=== PATIENT | male | born 1950 | race Caucasian/White ===

== ENCOUNTER → 2017-04-15 | Outpatient (CLI) | payer MEDICARE ==
[~2017-04-15] MED LIST: ALLOPURINOL 10100 M1 PO; ALLOPURINOL 30300 M3; BACTROBAN22 GM NASAL; CIPRO500 MG PO; CLEOCIN HCL150 MG PO; COLCHICINE 0.60.6 M1 PO; COUMADIN 2 MG TA2 M1 PO; COUMADIN 3 MG TA3 MG; COUMADIN 3 MG TA3 MG PO; COUMADIN 4 MG TA4 M1 PO; DILTIAZEM ER360 MG; DOXYCYCLINE 10100 M1 PO; DOXYCYCLINE 10100 MG; DOXYCYCLINE 10100 MG PO; ENOXAPARIN100 MG/11 SUBQ; GLUCOPHAGE500 MG PO; HYDRALAZINE 2525 M1 PO; HYDRALAZINE 2525 MG PO; HYDROCODONE-AP1 EAC6 PO; HYDROCODONE-APA1 TA1 PO; INDOMETHACIN 2525 MG; KLOR-CON; LANOXIN 0.120.125 M2 PO; LANOXIN 0.250.25 M1 PO; LASIX 40 MG TAB40 M1; LASIX 40 MG TAB40 MG PO; LASIX 80 MG TAB80 M1 PO; LASIX 80 MG TAB80 MG PO; LEVAQUIN 500 M500 M2 PO; LEVAQUIN 750 M750 MG PO; LISINOPRIL20 MG PO; LOPRESSOR 12.12.5 MG PO; LOPRESSOR 50 MG50 M1 PO; LOPRESSOR100 MG PO; LOPRESSOR25 PO; LOPRESSOR50 PO; METOLAZONE 5 MG5 MG PO; NAPROXEN SODIU220 M2 PO; NEURONTIN 300300 M1 PO; NORCO 5-325 TA1 EACH PO; OMEPRAZOLE40 MG PO; OMNICEF PO; ONDANSETRON HCL4 M2 PO; ONDANSETRON HCL4 M3 PO; PERCOCET 5-3251 EACH PO; POTASSIUM CHLO20 ME2 PO; POTASSIUM20 PO; PREDNISONE 10 M10 M1; PREDNISONE 10 M10 M1 PO; PREDNISONE 10 M10 MG PO; PREDNISONE 20 M20 M1 PO; PROAIR HFA8.5 GM IH; PROTONIX40 M1 PO; PROTONIX40 M2 PO; SPIRONOLACTONE25 M1 PO; TOPROL XL100 MG; TOPROL XL25 MG PO; TRINATE TABLET1 TAB PO; VIAGRA; VITAMIN B-1100 M1 PO; VITAMIN B-1100 M2 PO; VITAMIN D-32000 UNI1 PO; VITAMIN D1000 UNI1 PO; XARELTO15 MG PO; XARELTO20 MG PO; ZOFRAN8 MG PO; ZYVOX600 MG PO
== END ==
LOC: M.WC 01:50
DX: I87.311 Chronic venous hypertension (idiopathic) with ulcer of right lower extremity (principal); E11.622 Type 2 diabetes mellitus with other skin ulcer; L97.311 Non-pressure chronic ulcer of right ankle limited to breakdown of skin; I89.0 Lymphedema, not elsewhere classified; Z87.891 Personal history of nicotine dependence

== ENCOUNTER → 2017-04-22 | Outpatient (CLI) | payer MEDICARE | LOC: M.WC 02:42 | DX: I87.311 Chronic venous hypertension (idiopathic) with ulcer of right lower extremity (principal); L97.311 Non-pressure chronic ulcer of right ankle limited to breakdown of skin; E11.622 Type 2 diabetes mellitus with other skin ulcer; I89.0 Lymphedema, not elsewhere classified; Z87.891 Personal history of nicotine dependence ==

== ENCOUNTER → 2017-04-29 | Outpatient (CLI) | payer MEDICARE | LOC: M.WC 01:23 | DX: I87.311 Chronic venous hypertension (idiopathic) with ulcer of right lower extremity (principal); E11.622 Type 2 diabetes mellitus with other skin ulcer; L97.311 Non-pressure chronic ulcer of right ankle limited to breakdown of skin; I89.0 Lymphedema, not elsewhere classified; Z87.891 Personal history of nicotine dependence ==

== ENCOUNTER → 2017-05-06 | Outpatient (CLI) | payer MEDICARE | LOC: M.WC 01:18 | DX: I87.313 Chronic venous hypertension (idiopathic) with ulcer of bilateral lower extremity (principal); E11.622 Type 2 diabetes mellitus with other skin ulcer; L97.311 Non-pressure chronic ulcer of right ankle limited to breakdown of skin; L97.221 Non-pressure chronic ulcer of left calf limited to breakdown of skin; I89.0 Lymphedema, not elsewhere classified; Z87.891 Personal history of nicotine dependence ==

== ENCOUNTER → 2017-05-13 | Outpatient (CLI) | payer MEDICARE | LOC: M.WC 01:26 | DX: I87.313 Chronic venous hypertension (idiopathic) with ulcer of bilateral lower extremity (principal); E11.622 Type 2 diabetes mellitus with other skin ulcer; L97.311 Non-pressure chronic ulcer of right ankle limited to breakdown of skin; L97.221 Non-pressure chronic ulcer of left calf limited to breakdown of skin; I89.0 Lymphedema, not elsewhere classified; Z87.891 Personal history of nicotine dependence ==

== ENCOUNTER → 2017-05-20 | Outpatient (CLI) | payer MEDICARE | LOC: M.WC 02:56 | DX: I87.313 Chronic venous hypertension (idiopathic) with ulcer of bilateral lower extremity (principal); E11.622 Type 2 diabetes mellitus with other skin ulcer; L97.221 Non-pressure chronic ulcer of left calf limited to breakdown of skin; L97.311 Non-pressure chronic ulcer of right ankle limited to breakdown of skin; I89.0 Lymphedema, not elsewhere classified; Z87.891 Personal history of nicotine dependence ==

== ENCOUNTER → 2017-05-27 | Outpatient (CLI) | payer MEDICARE | LOC: M.WC 01:43 | DX: E11.622 Type 2 diabetes mellitus with other skin ulcer (principal); I87.313 Chronic venous hypertension (idiopathic) with ulcer of bilateral lower extremity; L97.311 Non-pressure chronic ulcer of right ankle limited to breakdown of skin; L97.221 Non-pressure chronic ulcer of left calf limited to breakdown of skin; I89.0 Lymphedema, not elsewhere classified; Z87.891 Personal history of nicotine dependence ==

== ENCOUNTER → 2017-06-03 | Outpatient (CLI) | payer MEDICARE | LOC: M.WC 01:38 | DX: E11.622 Type 2 diabetes mellitus with other skin ulcer (principal); I87.311 Chronic venous hypertension (idiopathic) with ulcer of right lower extremity; L97.311 Non-pressure chronic ulcer of right ankle limited to breakdown of skin; I89.0 Lymphedema, not elsewhere classified; Z87.891 Personal history of nicotine dependence ==

== ENCOUNTER → 2017-06-10 | Outpatient (CLI) | payer MEDICARE | LOC: M.WC 03:27 | DX: E11.622 Type 2 diabetes mellitus with other skin ulcer (principal); L97.311 Non-pressure chronic ulcer of right ankle limited to breakdown of skin; L97.221 Non-pressure chronic ulcer of left calf limited to breakdown of skin; I87.313 Chronic venous hypertension (idiopathic) with ulcer of bilateral lower extremity; I89.0 Lymphedema, not elsewhere classified; Z87.891 Personal history of nicotine dependence ==

== ENCOUNTER → 2017-06-17 | Outpatient (CLI) | payer MEDICARE | LOC: M.WC 04:48 | DX: E11.622 Type 2 diabetes mellitus with other skin ulcer (principal); I87.313 Chronic venous hypertension (idiopathic) with ulcer of bilateral lower extremity; L97.311 Non-pressure chronic ulcer of right ankle limited to breakdown of skin; L97.221 Non-pressure chronic ulcer of left calf limited to breakdown of skin; I89.0 Lymphedema, not elsewhere classified; Z87.891 Personal history of nicotine dependence ==

== ENCOUNTER → 2017-06-24 | Outpatient (CLI) | payer MEDICARE | LOC: M.WC 01:55 | DX: E11.622 Type 2 diabetes mellitus with other skin ulcer (principal); I87.313 Chronic venous hypertension (idiopathic) with ulcer of bilateral lower extremity; L97.311 Non-pressure chronic ulcer of right ankle limited to breakdown of skin; L97.221 Non-pressure chronic ulcer of left calf limited to breakdown of skin; I89.0 Lymphedema, not elsewhere classified; Z87.891 Personal history of nicotine dependence ==

== ENCOUNTER → 2017-07-01 | Outpatient (CLI) | payer MEDICARE | LOC: M.WC 02:01 | DX: I87.313 Chronic venous hypertension (idiopathic) with ulcer of bilateral lower extremity (principal); E11.622 Type 2 diabetes mellitus with other skin ulcer; L97.311 Non-pressure chronic ulcer of right ankle limited to breakdown of skin; L97.221 Non-pressure chronic ulcer of left calf limited to breakdown of skin; I89.0 Lymphedema, not elsewhere classified; Z87.891 Personal history of nicotine dependence ==

== ENCOUNTER → 2017-07-08 | Outpatient (CLI) | payer MEDICARE | LOC: M.WC 02:24 | DX: I87.313 Chronic venous hypertension (idiopathic) with ulcer of bilateral lower extremity (principal); E11.622 Type 2 diabetes mellitus with other skin ulcer; L97.311 Non-pressure chronic ulcer of right ankle limited to breakdown of skin; L97.221 Non-pressure chronic ulcer of left calf limited to breakdown of skin; I89.0 Lymphedema, not elsewhere classified; Z87.891 Personal history of nicotine dependence ==

== ENCOUNTER → 2017-07-15 | Outpatient (CLI) | payer MEDICARE | LOC: M.WC 01:01 | DX: E11.622 Type 2 diabetes mellitus with other skin ulcer (principal); I87.313 Chronic venous hypertension (idiopathic) with ulcer of bilateral lower extremity; L97.311 Non-pressure chronic ulcer of right ankle limited to breakdown of skin; L97.221 Non-pressure chronic ulcer of left calf limited to breakdown of skin; I89.0 Lymphedema, not elsewhere classified; Z87.891 Personal history of nicotine dependence ==

== ENCOUNTER → 2018-07-27 | Outpatient (CLI) | payer MEDICARE ==
[~2018-07-27] MED LIST changes: +CALCITRIOL0.25 MCG PO; +GENTAMICIN 0.1%15 G2 TOP; +KLOR-CON 1010 MEQ PO; +LACTULOSE10 GM/152 PO; +LOPERAMIDE 2 MG2 M1; +MINOCIN50 MG PO; +MIRALAX17 GM PO; +NEURONTIN600 MG PO; +TYLENOL EXTRA500 MG PO
== END ==
LOC: M.WC 08:00
DX: E11.622 Type 2 diabetes mellitus with other skin ulcer (principal); L97.811 Non-pressure chronic ulcer of other part of right lower leg limited to breakdown of skin; L97.821 Non-pressure chronic ulcer of other part of left lower leg limited to breakdown of skin; I87.2 Venous insufficiency (chronic) (peripheral); L94.0 Localized scleroderma [morphea]; Z87.891 Personal history of nicotine dependence

== ENCOUNTER → 2018-07-28 | Outpatient (CLI) | payer MEDICARE | LOC: M.WC 11:00 | DX: E11.622 Type 2 diabetes mellitus with other skin ulcer (principal); L97.811 Non-pressure chronic ulcer of other part of right lower leg limited to breakdown of skin; L97.821 Non-pressure chronic ulcer of other part of left lower leg limited to breakdown of skin; L94.0 Localized scleroderma [morphea]; I87.2 Venous insufficiency (chronic) (peripheral); Z87.891 Personal history of nicotine dependence ==

== ENCOUNTER → 2018-07-30 | Outpatient (CLI) | payer MEDICARE | LOC: M.WC 04:40 | DX: E11.622 Type 2 diabetes mellitus with other skin ulcer (principal); L97.811 Non-pressure chronic ulcer of other part of right lower leg limited to breakdown of skin; L97.821 Non-pressure chronic ulcer of other part of left lower leg limited to breakdown of skin; L94.0 Localized scleroderma [morphea]; I87.2 Venous insufficiency (chronic) (peripheral); Z87.891 Personal history of nicotine dependence ==

== ENCOUNTER → 2018-08-03 | Outpatient (CLI) | payer MEDICARE | LOC: M.WC 04:47 | DX: E11.622 Type 2 diabetes mellitus with other skin ulcer (principal); L97.811 Non-pressure chronic ulcer of other part of right lower leg limited to breakdown of skin; L97.821 Non-pressure chronic ulcer of other part of left lower leg limited to breakdown of skin; L94.0 Localized scleroderma [morphea]; I87.2 Venous insufficiency (chronic) (peripheral); Z87.891 Personal history of nicotine dependence ==

== ENCOUNTER → 2018-08-06 | Outpatient (CLI) | payer MEDICARE | LOC: M.WC 05:00 | DX: E11.622 Type 2 diabetes mellitus with other skin ulcer (principal); L97.811 Non-pressure chronic ulcer of other part of right lower leg limited to breakdown of skin; L97.821 Non-pressure chronic ulcer of other part of left lower leg limited to breakdown of skin; L94.0 Localized scleroderma [morphea]; I87.2 Venous insufficiency (chronic) (peripheral); Z87.891 Personal history of nicotine dependence ==

== ENCOUNTER → 2018-08-10 | Outpatient (CLI) | payer MEDICARE | LOC: M.WC 04:48 | DX: L97.811 Non-pressure chronic ulcer of other part of right lower leg limited to breakdown of skin (principal); L97.821 Non-pressure chronic ulcer of other part of left lower leg limited to breakdown of skin; L97.321 Non-pressure chronic ulcer of left ankle limited to breakdown of skin; L94.0 Localized scleroderma [morphea]; I87.2 Venous insufficiency (chronic) (peripheral); Z87.891 Personal history of nicotine dependence ==

== ENCOUNTER → 2018-08-13 | Outpatient (CLI) | payer MEDICARE ==
[~2018-08-13] MED LIST changes: +FOLIC ACID1 MG; +METHOTREXATE 22.5 MG PO
== END ==
LOC: M.WC 04:59
DX: E11.622 Type 2 diabetes mellitus with other skin ulcer (principal); L97.811 Non-pressure chronic ulcer of other part of right lower leg limited to breakdown of skin; L97.821 Non-pressure chronic ulcer of other part of left lower leg limited to breakdown of skin; L97.321 Non-pressure chronic ulcer of left ankle limited to breakdown of skin; L94.0 Localized scleroderma [morphea]; I87.2 Venous insufficiency (chronic) (peripheral); Z87.891 Personal history of nicotine dependence

== ENCOUNTER 2018-08-16 17:08 | Inpatient (IN) | payer MEDICARE ==
[~2018-08-16] VITALS: Ht 170.2 cm; Wt 83.1 kg
[~2018-08-16 17:08] MED LIST changes: -FOLIC ACID1 MG; -METHOTREXATE 22.5 MG PO
[2018-08-16 17:17] VITALS: BP 133/57
[2018-08-16] MEDS ORDERED: METHOTREXATE 22.5 MG PO (17:21)
[2018-08-16] MEDS ORDERED: FOLIC ACID1 MG (17:21)
[2018-08-16 18:07] LABS: HEMATOCRIT 26.5 % (42.0-52.0); HEMOGLOBIN 8.6 gm/dL (14.0-18.0); MCH 30.7 pg (26.0-34.0); MCHC 32.3 g/dL (28.0-37.0); MCV 94.9 fL (80.0-100.0); MPV 8.6 fl. (7.2-11.1); NUCLEATED RBCS 0 /100WBC; PLATELET COUNT* 185 thou/uL (150-400); RDW-CV 18.8 % (10.5-14.5); WBC 5.3 thou/uL (4.0-11.0)
[2018-08-16 18:11] LABS: INR 1.2; PROTIME 12.1 Seconds (9.20-11.50)
[2018-08-16 18:19] LABS: URINE BILIRUBIN NEGATIVE (Negative); URINE BLOOD NEGATIVE (Negative); URINE CLARITY CLEAR; URINE COLOR YELLOW; URINE GLUCOSE-RANDOM NEGATIVE (Negative); URINE KETONES NEGATIVE (Negative); URINE LEUKOCYTES-REFLEX NEGATIVE (Negative); URINE NITRITE-REFLEX NEGATIVE (Negative); URINE PROTEIN NEGATIVE (Negative); URINE UROBILINOGEN 0.2 E.U./dl (0.2-1.0)
[2018-08-16 18:23] LABS: ANION GAP 11 mmol/L (7-16); BUN 100 mg/dL (7-18); CALCIUM 8.6 mg/dL (8.5-10.1); CHLORIDE 106 mmol/L (98-107); CO2 20 mmol/L (21-32); CREATININE 2.2 mg/dL (0.6-1.3); GLUCOSE 97 mg/dL (70-99); POTASSIUM 5.5 mmol/L (3.5-5.1); SODIUM 137 mmol/L (136-145); TROPONIN-I LEVEL <0.06 ng/mL (<0.06)
[2018-08-16 18:28] LABS: ALBUMIN 2.8 g/dL (3.4-5.0); ALKALINE PHOSPHATASE 195 U/L (46-116); LIPASE 183 U/L (73-393); SGOT 41 U/L (15-37); SGPT 41 U/L (30-65); TOTAL BILIRUBIN 1.2 mg/dL (<0.1-1.0); TOTAL PROTEIN 6.6 g/dL (6.4-8.2)
[2018-08-16 18:41] LABS: ABSOLUTE LYMPHOCYTES 0.3 thou/uL (0.8-5.3)
[2018-08-16 18:42] LABS: ABSOLUTE MONOCYTES 0.1 thou/uL (0.0-1.2); ABSOLUTE NEUTROPHILS 4.9 thou/uL (1.6-8.1); PLATELET ESTIMATE ADEQUATE
[2018-08-16 21:34] VITALS: BP 119/70
[2018-08-16 21:45] VITALS: BP 140/61
[2018-08-17] VITALS (7 sets, daily range): BP systolic 99–121; BP diastolic 52–62
[2018-08-17 06:18] LABS: CALCIUM 8.5 mg/dL (8.5-10.1); CREATININE 2.3 mg/dL (0.6-1.3); MAGNESIUM 2.6 mg/dL (1.8-2.4); POTASSIUM 4.8 mmol/L (3.5-5.1)
--- NOTE | 2018-08-17 06:46 | NUR ---
RECEIVED REPORT FROM LIZ LE AT 2130. PT ARRIVED TO UNIT AT 2144 VIA CART. AAOX4, ORINTED TO ROOM AND CALL LIGHT. BOTTLER IN PLACE, TRACING AFIB. HOURLY ROUNDING COMPLETED. CALL LIGHT WITHIN REACH. VOICED NO CONCERNS THIS SHIFT.
--- NOTE | 2018-08-17 08:15 | NUR ---
ASSUMED PT. CARE AND RECEIVED REPORT AT 0730. PT. DROWSY, BUT EASILY AROUSABLE, A/OX4, VSS, MONITOR ON TRACING AFIB. ON 2L NC @ 97%. PT. DENIES CURRENT PAIN/SOB. FULL ASSESSMENT COMPLETED, REFER TO CHARTING. PT. WITH BILATERAL WRAPS TO LE, AWAITING WOUND CARE CONSULT TODAY. PT. NPO FOR CV CONSULT. CALL LIGHT IN REACH, WILL CONTINUE WITH PLAN OF CARE.
--- NOTE | 2018-08-17 11:18 | NUR ---
WOUND CARE CONSULT:BLE WOUNDS PT HAS MULTIPLE FULL THICKNESS ULCERATIONS TO BILAT LEGS. RIGHT LE LARGE MARANDA WOUND MEASURES 16.5X7.25X0.3. WOUND BED PINK, HEALING, MOIST, SAMLL AMOUNT SEROSANGUINEOUS, YELLOW AND CLEAR DRAINAGE NOTED. KEANU WOUND MACERATED WITH WHITE AND YELLOW TISSUE. RIGHT UPPER RANDALL WOUND ON OUTER RIGHT SIDE MEASURES 3.3X1.6X0.2 RIGHT UPPER RANDALL ON LEFT SIDE MEASURES 1.5X1.2X0.1 RIGHT LOWER RANDALL ON OUTER RIGHT SIDE MEASURE 2.3X1.5X0.1 RIGHT LOWER RANDALL LEFT SIDE MEASURES 1.2X0.4X0.1 RIGHT CALF MEASURES 0.3X0.8X0.1 RIGHT POSTERIOR ANKLE MEASURES 3.4X2.3X0.2 LEFT INNER ASPECT OF ANKLE MEASURE 3.5X2.5X0.1 LEFT RANDALL MEASURES 1.3X1.2X0.1 LEFT CALF MEASURES 2.0X1.4X0.1 ALL ABOVE WOUNDS ARE HEALING, MOIST, PINK. KEANU WOUNDS INTACT. MINIMAL AMOUNT OF SEROSANGUINEOUS, SEROUS AND YELLOW DRAINAGE NOTED. NO ODOR NOTED. ALL WOUNDS CLEANSED WITH SOAP AND WATER, PATTED DRY. DRAWTEX APPLIED TO WOUND BED, COVERED WITH ABDS. LARGE RIGHT LE WOUND APPLIED ZINC BARRIOR OINTMENT TO KEANU WOUND BEFORE DRAWTEX APPLIED. SECURED WITH 3 LAYER WRAP. PT TOLERATED DRESSING CHANGES WELL. DENIES PAIN. RECCOMENDATIONS: DRESSING CHANGES TUES/FRI BY WOUND NURSE. KEEP LEGS ELEVATED. DONT GET DRESSINGS WET CONTINUE TO F/U WOUND CENTER ON D/C ENCOURAGE GOOD NUTRITION FOR WOUND HEALING.
--- NOTE | 2018-08-17 15:53 | NUR ---
Pt is A&O. Resides at home with his and kids. Known to this CM from previous hospial stay. Pt has a cane that he can use for mobility. No hx of HH or SNF. Pt plans to return home at nm. Following.
--- NOTE | 2018-08-17 17:01 | EKG ---
[place] [address] ELECTROCARDIOGRAM REPORT Name: BROWN HUA Room: [address] ADM IN .R.#: [id number] Admission: 08/16/18 Attend Phys: Jorge Rolon MD Discharge: Date of : 52 Report #: [id number] THIS REPORT FOR: //name// [facility] ED Test Date: 2018-08-16 Test Time: 17:48:45 Pat Name: BROWN HUA Department: Room: [facility] Gender: M Tablet Tester: COLLINS : 1950 Requested By: Isaac Olguin Order Number: [id number] MD: Reji Andujar Measurements Intervals [place] Rate: 74 P: WV: QRS: 102 QRSD: 106 T: 35 QT: 410 QTc: 455 Interpretive Statements Atrial fibrillation Borderline low voltage, extremity leads Compared to ECG 07/15/2018 20:27:08 T-wave abnormality no longer present Prolonged QT interval no longer present Electronically Signed On 08-17-2018 17:00:55 CDT by Reji Andujar [email or web address] <ELECTRONICALLY SIGNED> By: Reji Andujar MD, [facility] 08/17/18 1700 1748 1748 Reji Andujar MD, [facility] /EPI
[2018-08-18 04:00] VITALS: BP 115/44
[2018-08-18 05:45] LABS: HEMOGLOBIN 7.7 gm/dL (14.0-18.0); MCH 30.8 pg (26.0-34.0); MCV 96.4 fL (80.0-100.0); MPV 8.7 fl. (7.2-11.1); RBC 2.49 mil/uL (4.50-6.00); RDW-CV 18.5 % (10.5-14.5); WBC 2.8 thou/uL (4.0-11.0)
[2018-08-18 06:07] LABS: CALCIUM 8.5 mg/dL (8.5-10.1); CREATININE 2.3 mg/dL (0.6-1.3); MAGNESIUM 2.6 mg/dL (1.8-2.4)
--- NOTE | 2018-08-18 06:24 | CON ---
[address] [address] CONSULTATION Name: BROWN HUA JULIO Room: [address] IN M.R.#: [id number] Admission: 08/16/18 Attend Phys: Jorge Rolon MD Discharge: Date of : 52 Report #: [id number] THIS REPORT FOR: //name// CC: Brenna Rivas DATE OF SERVICE: 08/17/2018 CARDIOLOGY CONSULTATION INDICATION: Acute on chronic diastolic heart failure exacerbation. HISTORY OF PRESENT ILLNESS: The patient is a very pleasant 67-year-old gentleman who is well known to myself. He has a history of aortic and mitral valve replacement in 2003 with mechanical valves. Over the past couple of years, we have gradually discontinued his anticoagulation as he has had bleeding problems including nasal and gastrointestinal bleeding. The patient was in the hospital last month with bleeding from AV malformations. At this time, he was not on anticoagulation. He has been home for several weeks and returned to the Emergency Room with complaints of increasing shortness of breath and fatigue with orthopnea and paroxysmal nocturnal dyspnea as well. He was found to be moderately volume overloaded. Despite taking his home furosemide and metolazone, he failed to diurese adequately. He denies any chest pain. He is without other cardiac complaint at this time. PAST MEDICAL HISTORY: 1. 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 2. Atherosclerotic coronary artery disease. 3. Chronic atrial fibrillation. 4. Essential hypertension. 5. Edema. 6. Type 2 diabetes mellitus. 7. Pulmonary hypertension. 8. History of recent gastrointestinal bleed. 9. Chronic renal insufficiency. ALLERGIES: LOVENOX, ZYVOX, PENICILLIN. HOME MEDICATIONS: Methotrexate 2.5 mg weekly, folate 1 mg daily, furosemide 80 mg daily, metolazone 5 mg p.r.n., Tylenol 500 mg q. 6 hours p.r.n., gentamicin ointment topically as directed, potassium chloride 10 mEq p.o. daily, calcitriol 0.25 mcg p.o. daily, Neurontin 600 mg p.o. t.i.d., minocycline 50 mg 2 tablets p.o. b.i.d., MiraLax 17 g daily, lactulose 30 mg p.o. t.i.d., allopurinol 200 mg p.o. b.i.d., metoprolol tartrate 12.5 [place] [address] CONSULTATION Name: BROWN HUA Room: [address]#: [id number] Admission: 08/16/18 Attend Phys: Jorge Rolon MD Discharge: Date of : 52 Report #: [id number] SOCIAL HISTORY: The patient does not smoke. He drinks alcohol occasionally. FAMILY HISTORY: Noncontributory. PHYSICAL EXAMINATION: VITAL SIGNS: Blood pressure 113/58, pulse is in the 70s and irregular. GENERAL: This is a pleasant gentleman who is in no distress. HEENT: The patient is wearing glasses. Extraocular muscles intact. Mucous membranes slightly dry. NECK: Shows no jugular venous distention. There are no carotid bruits. CHEST: Reveals clear lung vega. CARDIOVASCULAR: Reveals an irregularly irregular rhythm. The aortic valve and mitral valve clicks are crisp. There is a grade 2/6 systolic ejection murmur. ABDOMEN: Shows a protuberant abdomen, it is firm with fluid wave consistent with ascites. EXTREMITIES: Shows both lower extremities to be wrapped. There does not appear to be significant edema of the lower extremities. Chest x-ray shows mild cardiomegaly. There are no effusions. LABORATORY DATA: Reviewed. Sodium 142, potassium 4.8, chloride 109, bicarbonate 20, BUN 96, creatinine 2.3, serum glucose 117, AST 41, lipase 183, total bilirubin 1.2, direct bilirubin 1.2, calcium 8.5, phosphorus 2.8, magnesium 2.6, uric acid 3.4, alkaline phosphatase 195, ALT 41. GGTP 282. Total protein 6.6, albumin 2.8. EGFR 29. Ammonia 23. Lactic acid 1.0. Troponin less than 0.06. NT-proBNP 9519. White blood cell count 5.3, hemoglobin 8.6, hematocrit 26.5, MCV 94.9, platelet count 195,000. Echocardiogram dated 07/15/2018, EF 50-55%, mild concentric LVH. Biatrial enlargement. Aortic and mitral valves functioning normally. There is mild aortic insufficiency that appears to be perivalvular. Moderate tricuspid insufficiency. Peak pulmonary artery pressure 80 mmHg consistent with moderate to severe pulmonary hypertension. IMPRESSION AND RECOMMENDATIONS: 1. Acute on chronic diastolic heart failure. Agree with aggressive diuresis with IV furosemide and metolazone. May need to consider paracentesis since the fluid from the abdomen does not mobilize. 2. Aortic mitral valve in place. Valves are mechanical. The patient is not on anticoagulation as he has had significant bleeding despite all adjustments to anticoagulant medication including lower doses and alternate medicines. Would not anticoagulate at this time. 3. Hypercoagulable state secondary to chronic atrial fibrillation. Unable to tolerate anticoagulation at this time. 4. Chronic atrial fibrillation, rate adequately controlled at present. 5. Chronic anemia. Hemoglobin appears relatively stable at this time without indication for transfusion at this time. [facility] [address] [place] [address] CONSULTATION Name: BROWN HUA Room: [address] IN M.R.#: [id number] Admission: 08/16/18 Attend Phys: Jorge Rolon MD Discharge: Date of : 52 Report #: [id number] 6. History of hypertension, adequately controlled on current regimen. 7. Diabetes per primary physician. 8. Significant pulmonary hypertension, should improve with diuresis. No specific treatment. 9. Moderate malnutrition. Continue cardiac diet. <ELECTRONICALLY SIGNED> By: Reji Andujar MD, FACC 08/18/18 0624 1535 [id number] Andujar MD, FACC /nt
--- NOTE | 2018-08-18 07:11 | NUR ---
ASSUMED PT CARE AT 1930, NURSING ASSESSMENT COMPLETED AT START OF SHIFT. PT VOICED NO CONCERNS THIS SHIFT. EMBROIDERY SUPERVISOR IN PLACE, TRACING AFIB ON EMBROIDERY SUPERVISOR. HOURLY ROUNDING COMPLETED. Q2H REPOSITIONING COMPLETED. CALL LIGHT WITHIN REACH.
[2018-08-18 08:13] VITALS: BP 120/60
[2018-08-18 12:20] VITALS: BP 121/52
[2018-08-18 16:00] VITALS: BP 100/46
[2018-08-18 20:00] VITALS: BP 108/50
[2018-08-19] VITALS: BP 101/56
[2018-08-19 04:00] VITALS: BP 124/57
--- NOTE | 2018-08-19 05:18 | NUR ---
ASSUMED CARE OF PT AT 1900 PT ALERT AND ORIENTED X4. VS AND ASSESSMENT STABLE. PT RUNNING A FIB ON THE MONITOR. PT DENIED ANY COMPLAINTS AND SLEPT THROUGH THE NIGHT. WILL CONTINUE PLAN OF CARE.
[2018-08-19 05:36] LABS: ABSOLUTE EOSINOPHILS 0.2 thou/uL (0.0-0.7); ABSOLUTE LYMPHOCYTES 0.4 thou/uL (0.8-5.3); ABSOLUTE MONOCYTES 0.1 thou/uL (0.0-1.2); ABSOLUTE NEUTROPHILS 1.9 thou/uL (1.6-8.1); BASOPHILS 1.1 %; EOSINOPHILS 7.8 %; HEMATOCRIT 22.2 % (42.0-52.0); HEMOGLOBIN 7.2 gm/dL (14.0-18.0); LYMPHOCYTES 15.7 %; MCH 31.1 pg (26.0-34.0); MCHC 32.5 g/dL (28.0-37.0); MCV 95.8 fL (80.0-100.0); MONOCYTES 4.3 %; MPV 8.9 fl. (7.2-11.1); NUCLEATED RBCS 0 /100WBC; PLATELET COUNT* 86 thou/uL (150-400); POLYS 71.1 %; RBC 2.31 mil/uL (4.50-6.00); RDW-CV 18.5 % (10.5-14.5); WBC 2.7 thou/uL (4.0-11.0)
[2018-08-19 05:43] LABS: CALCIUM 8.7 mg/dL (8.5-10.1); CREATININE 2.2 mg/dL (0.6-1.3); POTASSIUM 3.6 mmol/L (3.5-5.1)
[2018-08-19 08:00] VITALS: BP 112/47
--- NOTE | 2018-08-19 10:08 | NUR ---
VSS. AFEBRILE. PT CALLED OUT TO USE BATHROOM. THIS RN WENT IN TO ASSESS, URINE ON INCONTINENCE PAD. PT STAND BY ASSIST TO BATHROOM. PT HAD BOWEL MOVEMENT. PT TOLERATING DIET. NO C/O PAIN. US PARACENTESIS ORDERED BY CARDIOLOGY. RECEIVED CALL FROM [facility] SOUND THAT PER DR LEYVA, PT DOES NOT NEED PARACENTESIS UNLESS FOR COMFORT. CARDIOLOGY PAGED TO CLARIFY ORDER. AWAITING PHONE CALL.
[2018-08-19 11:43] VITALS: BP 115/50
[2018-08-19 16:07] VITALS: BP 118/58
--- NOTE | 2018-08-19 18:45 | NUR ---
PT RECEIVED PARACENTESIS. REFER TO NOTES. PT UP STAND BY ASSIST. PT REPORTS HAVING DIARRHEA LAST NIGHT. PT TAKING LACULOSE FOR LIVER CIRROHSIS. ASKED PT IF HE TAKES THIS MEDICINE AT HOME, PT STATES, "NOT LIKE I SHOULD".
[2018-08-19 19:25] VITALS: BP 109/59
[2018-08-20] VITALS (7 sets, daily range): BP systolic 100–181; BP diastolic 41–154
--- NOTE | 2018-08-20 01:29 | NUR ---
ASSUMED CARE OF PT AT 1900. PT IS ALERT AND ORIENTED. VSS. PERRLA. NO COMPLAINTS OF PAIN. UP WITH 1 ASSIST. PT IS ON 2 LITERS OF O2. PT IS IN A FIB ON THE TELEMETRY. PT IS RESTING COMFORTABLY IN BED. RESPIRATIONS ARE EVEN AND NONLABORED. WILL CONTINUE TO MONITOR PT.
[2018-08-20 04:42] LABS: HEMOGLOBIN 8.2 gm/dL (14.0-18.0); MCH 31.4 pg (26.0-34.0); MCHC 32.6 g/dL (28.0-37.0); MCV 96.1 fL (80.0-100.0); MPV 9.4 fl. (7.2-11.1); RBC 2.61 mil/uL (4.50-6.00); RDW-CV 18.6 % (10.5-14.5); WBC 3.1 thou/uL (4.0-11.0)
[2018-08-20 05:00] LABS: CALCIUM 8.6 mg/dL (8.5-10.1); CREATININE 2.3 mg/dL (0.6-1.3); MAGNESIUM 2.4 mg/dL (1.8-2.4); POTASSIUM 3.4 mmol/L (3.5-5.1)
--- NOTE | 2018-08-20 16:49 | NUR ---
PT WORKED WITH PT/OT TODAY AND TOLERATED WELL. WILL CONTINUE WITH PRESCRIBED CARE.
[2018-08-21] VITALS: BP 103/46
--- NOTE | 2018-08-21 03:31 | NUR ---
RECIEVED REPORT AND ASSUMED CARE AT 1900. CLOSET ORGANIZER IN PLACE. DISTOLIC BP SOFT, OTHER THAN THAT VITAL SIGNS STABLE. PT UP SBA. PT HAS SOME PAIN IN HANDS AND FEET, AND PAIN MEDS GIVEN ORDERED. ASSESSMENT COMPLETED DISCUSSED PLAN OF CARE AND PT UNDERSTANDS. BED LOCKED AND CALL LIGHT WITHIN REACH. FALL PRECAUTIONS IN PLACE. HOURLY ROUNDING DONE AND ALL NEEDS MET. NURSING WILL CONTINUE TO MONITOR.
[2018-08-21 04:00] VITALS: BP 102/41
[2018-08-21 05:45] LABS: HEMATOCRIT 24.4 % (42.0-52.0); HEMOGLOBIN 7.9 gm/dL (14.0-18.0); MCH 30.8 pg (26.0-34.0); MCHC 32.5 g/dL (28.0-37.0); MCV 94.9 fL (80.0-100.0); MPV 8.5 fl. (7.2-11.1); RBC 2.58 mil/uL (4.50-6.00); RDW-CV 18.4 % (10.5-14.5); WBC 2.8 thou/uL (4.0-11.0)
[2018-08-21 06:00] LABS: ANION GAP 11 mmol/L (7-16); BUN 82 mg/dL (7-18); CALCIUM 8.4 mg/dL (8.5-10.1); CHLORIDE 106 mmol/L (98-107); CHOLESTEROL 96 mg/dL (<200); CO2 24 mmol/L (21-32); CREATININE 2.3 mg/dL (0.6-1.3); GLUCOSE 103 mg/dL (70-99); HDL CHOLESTEROL 35 mg/dL (>40); LDL CHOLESTEROL 56 mg/dL (<100); SODIUM 141 mmol/L (136-145); TC:HDL 2.7 Ratio (Not establshd); TRIGLYCERIDE 25 mg/dL (<150); VLDL 5 mg/dL (<40)
[2018-08-21 06:04] LABS: SERUM ASSESSMENT Clear
[2018-08-21 08:55] VITALS: BP 115/53
[2018-08-21 12:43] VITALS: BP 114/53
[2018-08-21 16:03] VITALS: BP 112/62
--- NOTE | 2018-08-21 17:31 | NUR ---
PT AMBULATED HALLS WITH PT AND UP IN CHAIR FOR MEALS. TOLERATING CURRENT COURSE OF CARE.
[2018-08-21 19:40] VITALS: BP 118/47
[2018-08-22] VITALS: BP 138/68
--- NOTE | 2018-08-22 02:04 | NUR ---
RECIEVED REPORT AND ASSUMED CARE AT 1900. FOREST TECHNOLOGY PROFESSOR IN PLACE. DISTOLIC BP SOFT, PULSE HERIBERTO, OTHER THAN THAT VITAL SIGNS STABLE. PT UP [facility] SBA. PT HAS PAIN IN HANDS AND FEET AND PAIN MEDS GIVEN ORDERED. ASSESSMENT COMPLETED DISCUSSED PLAN OF CARE AND PT UNDERSTANDS. BED LOCKED AND CALL LIGHT WITHIN REACH. FALL PRECAUTIONS IN PLACE. HOURLY ROUNDING DONE AND ALL NEEDS MET. NURSING WILL CONTINUE TO MONITOR.
[2018-08-22 04:00] VITALS: BP 93/46
[2018-08-22 05:48] LABS: CALCIUM 8.5 mg/dL (8.5-10.1); CREATININE 2.2 mg/dL (0.6-1.3); MAGNESIUM 2.1 mg/dL (1.8-2.4); POTASSIUM 3.5 mmol/L (3.5-5.1)
[2018-08-22 08:00] VITALS: BP 114/47
[2018-08-22 12:12] VITALS: BP 109/51
[2018-08-22] MEDS ORDERED: NEURONTIN600 MG PO (12:51)
[2018-08-22] MEDS ORDERED: KLOR-CON M2020 MEQ PO (12:52)
[2018-08-22] MEDS ORDERED: DEMADEX20 MG PO (12:52)
[2018-08-22] MEDS ORDERED: THERA M PLUS T1 EAC2 PO (12:53)
[2018-08-22] MEDS ORDERED: NEXIUM40 MG PO (12:53)
[2018-08-22] MEDS ORDERED: ADULT LOW DOSE81 MG PO (12:53)
[2018-08-22] MEDS ORDERED: CEFDINIR300 MG PO (12:54)
[2018-08-22] MEDS ORDERED: LIPITOR10 MG PO (12:54)
[2018-08-22] MEDS ORDERED: ZITHROMAX250 MG PO (12:55)
--- NOTE | 2018-08-22 14:57 | NUR ---
ORDER RECEIVED TO DISCHARGE PATIENT TO SELF CARE AT HOME. MED REC, MEDICATION EDUCATION, STROKE EDUCATION, AND NEED FOR FOLLOW UP APPOINTMNETS WITH CARIOLOGY AFTER HOSPITAL STAY COVERED AND STATED UNDERSTOOD BY PATIENT. IV AND TELEMETRY PACK REOMVED. HOURLY ROUNDING COMPLETED FOR PATINET SAFETY AND PATINET WAS IN NO APPARENT DISTRESS AT TIME OF DISCHARGE. DISCAHRGE TIME OF 14:50.
== END 2018-08-22 14:50 | disposition home or self-care (01) | DRG 177 ==
LOC: M.ERS 17:08 → M.2W 18:49 → M.TBA-ER 18:49 → M.2W 22:22
PROVIDERS: Emergency Medicine; Family Medicine; ADMIT Internal Medicine
DX: J15.6 Pneumonia due to other Gram-negative bacteria (principal); I50.33 Acute on chronic diastolic (congestive) heart failure; J96.01 Acute respiratory failure with hypoxia; N17.9 Acute kidney failure, unspecified; I13.0 Hypertensive heart and chronic kidney disease with heart failure and stage 1 through stage 4 chronic kidney disease, or unspecified chronic kidney disease; D68.69 Other thrombophilia; E44.0 Moderate protein-calorie malnutrition; N18.4 Chronic kidney disease, stage 4 (severe); I50.9 Heart failure, unspecified; M10.9 Gout, unspecified; G47.33 Obstructive sleep apnea (adult) (pediatric); I25.10 Atherosclerotic heart disease of native coronary artery without angina pectoris; I48.2 Chronic atrial fibrillation; E11.40 Type 2 diabetes mellitus with diabetic neuropathy, unspecified; E11.22 Type 2 diabetes mellitus with diabetic chronic kidney disease; I27.20 Pulmonary hypertension, unspecified; E11.51 Type 2 diabetes mellitus with diabetic peripheral angiopathy without gangrene; L94.0 Localized scleroderma [morphea]; E87.5 Hyperkalemia; K74.60 Unspecified cirrhosis of liver; K27.9 Peptic ulcer, site unspecified, unspecified as acute or chronic, without hemorrhage or perforation; D63.8 Anemia in other chronic diseases classified elsewhere; K72.90 Hepatic failure, unspecified without coma; Z95.2 Presence of prosthetic heart valve; Z79.899 Other long term (current) drug therapy; Z68.28 Body mass index [BMI] 28.0-28.9, adult; Z88.0 Allergy status to penicillin; Z88.8 Allergy status to other drugs, medicaments and biological substances

== ENCOUNTER → 2018-08-24 | Outpatient (CLI) | payer MEDICARE ==
[~2018-08-24] MED LIST changes: +ADULT LOW DOSE81 MG PO; +CEFDINIR300 MG PO; +DEMADEX20 MG PO; +FOLIC ACID1 MG; +FOLIC ACID1 MG PO; +IRON325 PO; +KLOR-CON M2020 MEQ PO; +LIPITOR10 MG PO; +METHOTREXATE 22.5 MG PO; +NEXIUM40 MG PO; +THERA M PLUS T1 EAC2 PO; +ZITHROMAX250 MG PO
== END ==
LOC: M.WC 07:04
DX: E11.622 Type 2 diabetes mellitus with other skin ulcer (principal); L97.821 Non-pressure chronic ulcer of other part of left lower leg limited to breakdown of skin; L97.811 Non-pressure chronic ulcer of other part of right lower leg limited to breakdown of skin; L97.321 Non-pressure chronic ulcer of left ankle limited to breakdown of skin; L97.221 Non-pressure chronic ulcer of left calf limited to breakdown of skin; L94.0 Localized scleroderma [morphea]; I87.2 Venous insufficiency (chronic) (peripheral); Z87.891 Personal history of nicotine dependence

== ENCOUNTER → 2018-08-26 | Outpatient (CLI) | payer MEDICARE | LOC: M.WC 04:52 | DX: E11.622 Type 2 diabetes mellitus with other skin ulcer (principal); L97.811 Non-pressure chronic ulcer of other part of right lower leg limited to breakdown of skin; L97.821 Non-pressure chronic ulcer of other part of left lower leg limited to breakdown of skin; L97.321 Non-pressure chronic ulcer of left ankle limited to breakdown of skin; L97.221 Non-pressure chronic ulcer of left calf limited to breakdown of skin; L94.0 Localized scleroderma [morphea]; I87.2 Venous insufficiency (chronic) (peripheral); Z87.891 Personal history of nicotine dependence ==

== ENCOUNTER 2018-08-29 12:26 | Inpatient (IN) | payer MEDICARE ==
[~2018-08-29] VITALS: Ht 170.2 cm; Wt 82.6 kg
--- NOTE | ~2018-08-29 | CON ---
[address] [address] CONSULTATION Name: BROWN HUA Room: [address] IN M.R.#: [id number] Admission: 08/29/18 Attend Phys: Martin Guerrero Discharge: Date of : 52 Report #: [id number] THIS REPORT FOR: //name// CC: Brenna Lunsford DATE OF SERVICE: 08/31/2018 REASON FOR CONSULTATION: Pancytopenia. REQUESTING PHYSICIAN: Dr. Lunsford. HISTORY OF PRESENT ILLNESS: The patient is a 67-year-old man with multiple medical problems including chronic kidney disease, history of GI bleeding, anemia, linear morphea, history of pneumonia, atrial fibrillation, mitral and aortic valve replacement who is admitted to the hospital with weakness, sore throat, and pancytopenia. He had been on methotrexate recently initiated by his wreath maker, methotrexate was discontinued. GI consult was requested. Dr. Mancera has been consulted. GI workup is on the way, although he recently had an EGD and colonoscopy. He has a history of duodenal ulcers. He is doing better now. He does not have complaints of shortness of breath, chest pain. Denies melena, hematochezia. PAST MEDICAL HISTORY: Significant for multiple medical problems as above. SOCIAL HISTORY: He has a history of alcohol abuse, but quit drinking 2 years ago. REVIEW OF SYSTEMS: See above. PHYSICAL EXAMINATION: GENERAL: Reveals chronically ill-appearing man, not in acute distress. VITAL SIGNS: Blood pressure 124/54, heart rate is 71, temperature 99.0, respirations 18. HEENT: Does not reveal thrush. NECK: No cervical lymphadenopathy. LUNGS: Clear. ABDOMEN: Distended, but no obvious ascitic fluid is appreciated. EXTREMITIES: Lower extremity dressing up to the knee. MENTAL STATUS: Alert and oriented x 3. LABORATORY DATA: Today, white count 2.4, hemoglobin 8.0, platelets 253. On admission on 08/29/2018, white count 2.7, hemoglobin 6.5, platelets 413. Differential does not show any immature cells. Sodium 141, potassium 3.5, BUN 142, creatinine 3.3, total protein 6.0, albumin 2.4. CT of abdomen reviewed, does not [place] [address] CONSULTATION Name: BROWN HUA Room: [address] IN [facility].#: [id number] Admission: 08/29/18 Attend Phys: Martin Guerrero Discharge: Date of : 52 Report #: [id number] ASSESSMENT AND PLAN: 1. Leukopenia, most likely secondary to methotrexate, improving by withholding the methotrexate. Plan to order serum protein electrophoresis. 2. Anemia. I agree with workup. Thank you very much for allowing me to participate in care of this patient. By: [id number] Garcia MD /юлия
[~2018-08-29 12:26] MED LIST changes: -FOLIC ACID1 MG PO; -IRON325 PO
[2018-08-29 12:43] VITALS: BP 93/29
[2018-08-29] MEDS ORDERED: DOXYCYCLINE 10100 MG PO (12:48)
[2018-08-29 13:16] LABS: MCH 31.6 pg (26.0-34.0); MCHC 33.8 g/dL (28.0-37.0); MCV 93.4 fL (80.0-100.0); MPV 7.6 fl. (7.2-11.1); NUCLEATED RBCS 2 /100WBC; PLATELET COUNT* 413 thou/uL (150-400); RBC 2.07 mil/uL (4.50-6.00); RDW-CV 19.3 % (10.5-14.5)
[2018-08-29 13:17] LABS: URINE BILIRUBIN NEGATIVE (Negative); URINE BLOOD NEGATIVE (Negative); URINE CLARITY CLEAR; URINE COLOR YELLOW; URINE GLUCOSE-RANDOM NEGATIVE (Negative); URINE KETONES NEGATIVE (Negative); URINE LEUKOCYTES-REFLEX NEGATIVE (Negative); URINE NITRITE-REFLEX NEGATIVE (Negative); URINE PROTEIN NEGATIVE (Negative); URINE UROBILINOGEN 0.2 E.U./dl (0.2-1.0)
[2018-08-29 13:24] LABS: HEMATOCRIT 19.3 % (42.0-52.0); HEMOGLOBIN 6.5 gm/dL (14.0-18.0); WBC 0.7 thou/uL (4.0-11.0)
[2018-08-29 13:25] LABS: ANION GAP 16 mmol/L (7-16); BUN 149 mg/dL (7-18); CALCIUM 8.6 mg/dL (8.5-10.1); CHLORIDE 100 mmol/L (98-107); CO2 24 mmol/L (21-32); CREATININE 3.3 mg/dL (0.6-1.3); GLUCOSE 115 mg/dL (70-99); SODIUM 140 mmol/L (136-145)
[2018-08-29 13:34] LABS: ALBUMIN 2.9 g/dL (3.4-5.0); ALKALINE PHOSPHATASE 216 U/L (46-116); SGOT 31 U/L (15-37); SGPT 36 U/L (30-65); TOTAL BILIRUBIN 0.8 mg/dL (<0.1-1.0); TOTAL PROTEIN 6.8 g/dL (6.4-8.2); TROPONIN-I LEVEL <0.06 ng/mL (<0.06)
[2018-08-29 13:37] LABS: POTASSIUM 2.6 mmol/L (3.5-5.1)
[2018-08-29 14:06] LABS: ABSOLUTE EOSINOPHILS 0.1 thou/uL (0.0-0.7); ABSOLUTE LYMPHOCYTES 0.3 thou/uL (0.8-5.3); ABSOLUTE NEUTROPHILS 0.3 thou/uL (1.6-8.1)
[2018-08-29 14:07] LABS: ANISOCYTOSIS 1+; PLATELET ESTIMATE INCREASED
[2018-08-29 14:44] LABS: AMMONIA 16 umol/L (11-32)
--- NOTE | 2018-08-29 14:59 | NUR ---
PT PUT ON HOSPITAL BED
[2018-08-29 17:32] LABS: INR 1.2; PROTIME 12.4 Seconds (9.20-11.50)
[2018-08-29 18:37] VITALS: BP 103/44; BP 112/45; BP 113/40; BP 114/46; BP 115/42
--- NOTE | 2018-08-29 18:40 | NUR ---
PT TAKEN TO FLOOR BLOOD WAS TAKEN IN COOLER AND GIVEN TO MATUESZ HILL. CONSENT FORMS AND BLOOD FLOW SHEETS GIVEN TO MATEUSZ HILL WELL.
[2018-08-29 18:42] VITALS: BP 108/44
[2018-08-29 18:49] VITALS: BP 107/42
--- NOTE | 2018-08-29 18:56 | NUR ---
PT ADMITTED TO ROOM 232 VIA CART FROM ED AT APPROXIMATELY 1830. BLOOD STARTED AND IS CURRENTLY INFUSING AT THIS TIME. REPORT GIVEN TO ONCOMING SHIFT.
[2018-08-29 20:00] VITALS: BP 113/40
[2018-08-29] MEDS ORDERED: FOLIC ACID1 MG PO (23:18)
[2018-08-29] MEDS ORDERED: IRON325 PO (23:24)
[2018-08-29 23:33] LABS: HEMOGLOBIN 6.6 gm/dL (14.0-18.0)
[2018-08-29 23:34] LABS: HEMATOCRIT 19.1 % (42.0-52.0)
[2018-08-30] VITALS (8 sets, daily range): BP systolic 94–121; BP diastolic 44–56
[2018-08-30 06:52] LABS: HEMATOCRIT 20.8 % (42.0-52.0)
[2018-08-30 06:58] LABS: CALCIUM 8.3 mg/dL (8.5-10.1); CREATININE 3.1 mg/dL (0.6-1.3)
[2018-08-30 07:00] LABS: POTASSIUM 2.5 mmol/L (3.5-5.1)
--- NOTE | 2018-08-30 08:09 | NUR ---
ASSUMED PT CARE AT APPROX 1930. PT IS AWAKE AND ORIENTED X4. VSS ON 2L/NC. STATISTICAL CLERK ADVERTISING IN PLACE TRACING AFIB, CHRONIC AND RATE CONTOLLED. BLOOD TRANSFUSION ONGOING, MONITORED CLOSELY FOR TRANSFUSION REACTIONS. REPEAT H AND H POST TRANSFUSION IS FOLLOWS: Hgb 6.6, Hct 19.1, DR SCHERER MADE AWARE, ORDERS RECIEVED AND CARRIED OUT. STARTED ANOTHER TRANSFUSION OF 1 UNIT OF PACKED RED CELLS AT 0220 WITH CONGESTION PRECAUTIONS. TRANSFUSION DOCUMENTATION DONE AND CHARTED. BLOOD TRANSFUSION WELL TOLERATED, NO TRANSFUSION REACTIONS NOTED. PT CLOSELY MONITORED. CALL LIGHT WITHIN REACH. PT C/O SORE THROAT-DR SCHERER INFORMED AND ORDERS PLACED. CRITICAL POTASIUM RESULT OF 2.5 RECIEVED FROM LAB AT 0701. DR SCHERER INFORMED, ORDERS RECIEVED AT 0745 AND FAXED. PT ALSO HAS BILATERAL LOWER LEG WOUNDS THAT HE SAID ARE FROM HIS SKIN CONDITION CALLED "LINEAR MORPHEA" IT HAS MULTIPLE LAYERS OF DRESSING ON IT, THIS NURSE WAS NOT ABLE TO TAKE PICTURES OF THE PT WOUNDS BECAUSE PT REFUSED TO HAVE THE DRESSINGS REMOVED. WOUND CARE CONSULT PLACED.
--- NOTE | 2018-08-30 11:33 | NUR ---
ATTEMPTED TO MEET WITH PT, WAS SLEEPING AND NOT DISTURBED. PT KNOWN TO CM FROM PREVIOUS STAYS. JUST DC'D 08/17. PT LIVES WITH AND CHILDREN. IS INDEPENDENT, USES CANE. HAS NOT HAD HH. PT HAS BEEN WOUND CARE CENTER IN PAST. IS DPOA. WILL FOLLOW
[2018-08-30 12:14] LABS: BASOPHILS 1.1 %; EOSINOPHILS 3.1 %; HEMATOCRIT 20.7 % (42.0-52.0); LYMPHOCYTES 18.1 %; MCH 31.6 pg (26.0-34.0); MCV 95.8 fL (80.0-100.0); MONOCYTES 4.9 %; MPV 8.5 fl. (7.2-11.1); NUCLEATED RBCS 1 /100WBC; POLYS 72.8 %; RBC 2.16 mil/uL (4.50-6.00); RDW-CV 18.2 % (10.5-14.5)
[2018-08-30 12:16] LABS: ABSOLUTE EOSINOPHILS 0.1 thou/uL (0.0-0.7); ABSOLUTE LYMPHOCYTES 0.3 thou/uL (0.8-5.3); ABSOLUTE MONOCYTES 0.1 thou/uL (0.0-1.2); ABSOLUTE NEUTROPHILS 1.3 thou/uL (1.6-8.1)
[2018-08-30 12:17] LABS: PLATELET COUNT* 274 thou/uL (150-400)
[2018-08-30 12:19] LABS: WBC 1.8 thou/uL (4.0-11.0)
[2018-08-30 12:20] LABS: HEMOGLOBIN 6.8 gm/dL (14.0-18.0)
--- NOTE | 2018-08-30 12:44 | EKG ---
[place] [address] ELECTROCARDIOGRAM REPORT Name: BROWN HUA Room: [address] ADM IN .R.#: [id number] Admission: 08/29/18 Attend Phys: Martin Guerrero Discharge: Date of : 52 Report #: [id number] THIS REPORT FOR: //name// [facility] ED Test Date: 2018-08-29 Test Time: 12:57:44 Pat Name: BROWN HUA Department: Room: [facility] Gender: M Registered Midwife: OMAYRA : 1950 Requested By: Eneida Ford Order Number: [id number] MD: Fadi Shane Measurements Intervals [place] Rate: 63 P: SD: QRS: 87 QRSD: 118 T: -56 QT: 486 QTc: 498 Interpretive Statements Atrial fibrillation Incomplete right bundle branch block Nonspecific T abnormalities, lateral leads Baseline wander in lead(s) V3 Compared to ECG 08/16/2018 17:48:45 Incomplete right bundle-branch block now present T-wave abnormality now present Electronically Signed On 08-30-2018 12:44:21 CDT by Fadi Shane [email or web address] <ELECTRONICALLY SIGNED> By: Fadi Shane MD, FACC 08/30/18 1244 1257 [id number] Fadi Shane MD, FAC /EPI
--- NOTE | 2018-08-30 16:33 | NUR ---
WOUND NURSE: PATIENT HAS 3 LAYER COMPRESSION WRAPS IN PLACE ON BLE AND THEY ARE NOT DUE TO BE CHANGED UNTIL TOMORROW. PATIENT REPORTING AN ACTIVELY BLEEDING SHALLOW LESION WHICH EXTENDS FROM HIS COCCYX AND EXTENDS INSIDE GLUTEAL FOLDS ON EACH SIDE OF ANAL ORIFACE. THIS MEASURES 3.0 X 7.0 X 0.1 CM. CLEANSED WITH WOUND CLEANSER AND GAUZE, THEN APPLIED AQUACEL AG UNDER EXUDERM UNDER SURESITE TRANSPARENT DRESSING. THIS WAS TOLERATED WELL BY THE PATIENT. PATIENT INSTRUCTED ON METHODS OF OFFLOADING AND MEASURES TO PROMOTE HEALING AND WITH REINFORCEMENTS NEEDED.
[2018-08-30 16:35] LABS: URINE BILIRUBIN NEGATIVE (Negative); URINE BLOOD NEGATIVE (Negative); URINE CLARITY CLEAR; URINE COLOR YELLOW; URINE GLUCOSE-RANDOM NEGATIVE (Negative); URINE KETONES NEGATIVE (Negative); URINE LEUKOCYTES NEGATIVE (Negative); URINE NITRITE NEGATIVE (Negative); URINE PROTEIN NEGATIVE (Negative); URINE UROBILINOGEN 0.2 E.U./dl (0.2-1.0)
[2018-08-30 18:16] LABS: HEMATOCRIT 25.6 % (42.0-52.0); HEMOGLOBIN 8.7 gm/dL (14.0-18.0)
--- NOTE | 2018-08-30 18:45 | NUR ---
RECEIVED REPORT FROM DEVIN HILL. ASSUMED CARE OF PT AROUND 0730. PT A&O X4, VSS. SWAT TEAM MEMBER IN PLACE TRACING AFIB WITH NO CHANGES THIS SHIFT. AM ASSESSMENT AND VITALS COMPELTED CHARTED. PT RECEIVED 1 UNIT PRBCS - HGB UP TO 8.7. POTASSIUM REPLACEMENT IN PROGRESS. PT COMPLAINED OF SORE MOUTH/THROAT THIS SHIFT - MAGIC MOUTHWASH GIVEN TO PT RELIEF. IV'S INTACT. PT SHOWING POOR APPETITE DUE TO MOUTH PAIN. PO INTAKE FAIR. PT VOIDING PER URINAL- OUTPUT CHARTED. PVR NOTED, SEE CHARTING. BLE'S WRAPPED IN LAYER COMPRESSION WRAPS - WOUND CARE TO REDRESS TOMORROW, PT REFUSED DRESSING CHANGE TODAY. WOUND CARE NURSE PHOTOGRAPHED AND DRESSED PERIANAL WOUND THIS SHIFT - DRESSING INTACT. PT BEING TURNED Q2HRS, HAS GOOD BED MOBILITY. PT CURRENTLY RESTING IN BED. CALL LIGHT IS WITHIN REACH. FALL PRECAUTIONS ARE IN PLACE. HOURLY ROUNDING PERFORMED.
[2018-08-31] VITALS: BP 97/49
[2018-08-31 04:00] VITALS: BP 114/49
--- NOTE | 2018-08-31 05:33 | NUR ---
ASSUMED PT CARE AT APPROX 1930. PT IS ASLEEP BUT AROUSABLE AND ORIENTED X4. PT VERBALIZED FEELING TIRED. VSS ON 2L/NC. EASEMENT MAN IN PLACE TRACING AFIB (RATE CONTROLLED) PT STILL HAS SORE THROAT PARTIALLY RELEIVED BY MAGIC MOUTH WASH GIVEN PER JUN. SERUM POTASSIUM REPLACEMENT IN PROGRESS. POSITION CHANGES DONE Q2H. CALL LIGHT WITHIN REACH. HOURLY ROUNDING DONE FOR PT SAFETY.
[2018-08-31 05:48] LABS: HEMATOCRIT 23.6 % (42.0-52.0); MCH 31.5 pg (26.0-34.0); MCV 92.6 fL (80.0-100.0); MPV 8.2 fl. (7.2-11.1); RBC 2.55 mil/uL (4.50-6.00); RDW-CV 17.9 % (10.5-14.5); WBC 2.4 thou/uL (4.0-11.0)
[2018-08-31 06:22] LABS: INFLUENZA A ANTIGEN None Detected (None Detect); INFLUENZA B ANTIGEN None Detected (None Detect)
[2018-08-31 06:24] LABS: ALBUMIN 2.4 g/dL (3.4-5.0); CALCIUM 8.2 mg/dL (8.5-10.1); CREATININE 3.3 mg/dL (0.6-1.3); POTASSIUM 3.5 mmol/L (3.5-5.1)
[2018-08-31 08:30] VITALS: BP 94/38
[2018-08-31 12:00] VITALS: BP 124/54
--- NOTE | 2018-08-31 14:37 | NUR ---
WOUND NURSE: PATIENT SEEN TO ADDRESS WOUNDS ON BLE R/T HX OF LINEAR MORPHIA. TOTAL OF 7 SHALLOW WOUNDS, 3 ON RLE, 4 ON LLE. ALL WOUNDS WITH MINIMAL GRANULATION TISSUE IN THE WOUND BED, RED NONGRANULATING TISSUE NOTED, MODERATE AMOUNT OF SANGUINOUS DRAINAGE NOTED. MEASUREMENTS FOLLOWS: PROXIMAL RLE: 2.5 X 3.0 X 0.1 CM; MIDDLE RLE: 2.2 X 1.0 X 0.1 CM; DISTAL RLE: 15.0 X 8.5 X 0.2 CM. ANTERIOR-PROXIMAL LLE: 1.0 X 1.4 X 0.1 CM; MEDIAL LLE: 3.0 X 2.5 X 0.1 CM; HERMELINDA-LATERAL LLE: 1.7 X 1.2 X 0.1 CM; POSTERIOR LLE: 3.0 X 1.0 X 0.1 CM. BLE CLEANSED WITH SOAP AND WATER, RINSED WITH WATER,THEN PATTED DRY. APPLIED LOTION TO INTACT SKIN TOES TO KNEE. APPLIED DRAWTEX TO EACH OPEN WOUND THEN COVERED WITH ABD. WRAPPED BLE WITH MEDLINE 3 LAYER COMPRESSION WRAP. ABOVE PROCEDURE TOLERATED WELL AND WITHOUT COMPLAINTS OF PAIN. INSTRUCTED ON MEASURES TO PROMOTE HEALING AND PREVENT COMPLICATIONS.
[2018-08-31 16:00] VITALS: BP 115/68
--- NOTE | 2018-08-31 16:00 | NUR ---
VSS, ASSUMED CARE IN THE AM, ASSESSMENT PERFORMED AND CHARTED, FALL PRECAUTIONS IN PLACE AND CALL LIGHT IN REACH, PT IS A&O4 AND ON RA, AFIB ON THE MONITOR, PT DENIES ANY PAIN, PT IS UP WITH TWO TO BSC, PT GOAL IS TO SIT UP IN CHAIR AND AND IMPROVE ACTIVITY, AT THIS TIME NO STATUS CHANGE NOTED AT THIS TIME HOURLY ROUNDS COMPLETED,
[2018-08-31 20:00] VITALS: BP 117/54
[2018-09-01] VITALS (7 sets, daily range): BP systolic 93–124; BP diastolic 39–61
--- NOTE | 2018-09-01 04:24 | NUR ---
ASSUMED PT CARE AT APPROX 1930. PT IS AWAKE AND ORIENTED X4. VSS ON ROOM AIR. PT STILL TRACING AFIB ON TELE. PT STILL HAS SORE THROAT BUT SAYS THAT IT IS BETTER. PT IS FOR EGD TODAY. ADVISED PT TO HAVE NOTHING PER [place] [facility] [place]. CALL LIGHT WITHIN REACH. HOURLY ROUNDING DONE FOR PT SAFETY.
[2018-09-01 05:38] LABS: HEMATOCRIT 22.1 % (42.0-52.0); HEMOGLOBIN 7.6 gm/dL (14.0-18.0); MCH 31.6 pg (26.0-34.0); MCHC 34.3 g/dL (28.0-37.0); MCV 92.1 fL (80.0-100.0); MPV 8.4 fl. (7.2-11.1); RBC 2.4 mil/uL (4.50-6.00); RDW-CV 17.7 % (10.5-14.5); WBC 3.2 thou/uL (4.0-11.0)
[2018-09-01 05:56] LABS: CALCIUM 8.1 mg/dL (8.5-10.1); CREATININE 3.2 mg/dL (0.6-1.3); MAGNESIUM 1.9 mg/dL (1.8-2.4); POTASSIUM 3.5 mmol/L (3.5-5.1)
--- NOTE | 2018-09-01 13:00 | NUR ---
VSS, ASSUMED CARE IN THE AM, ASSESSMENT PERFORMED AND CHARTED, FALL PRECAUTIONS IN PLACE AND CALL LIGHT IN REACH, PT IS A&O4 AND UP WITH STAND BY ASSIST, HER IS ON 2L NC AT SLEEP AND ON RA WHEN AWAKE, HE STATES A SORE THROAT, HE IS TRACING AFIB ON THE MONITOR, AT THIS TIME HE IS DOWN IN EGD, PT GOAL IS TO COMPLETE EGD, SIT UP IN CHAIR AND IMPROVE ACTIVITY, WILL FOLLOW WITH PLAN OF CARE.
--- NOTE | 2018-09-01 14:38 | CON ---
[address] [address] CONSULTATION Name: GINASTERLINGEzequielBROWN KIM Room: [address] IN M.R.#: [id number] Admission: 08/29/18 Attend Phys: Martin Guerrero Discharge: Date of : 52 Report #: [id number] THIS REPORT FOR: //name// CC: Brenna Lunsford DATE OF SERVICE: 08/30/2018 REQUESTING PHYSICIAN: Jaymie Lunsford MD. REASON FOR CONSULTATION: Acute kidney injury. HISTORY OF PRESENT ILLNESS: The patient is a 67-year-old white man with medical history significant for chronic kidney disease stage 4, followed by Dr. Ewing. He also has history of liver cirrhosis, history of GI bleed, diastolic congestive heart failure. He presented to the hospital with complaints of hematochezia. States he started seeing ____ days ago, he attributed to hemorrhoids, but in the Emergency Room when they checked his hemoglobin that was low at 6.5. His creatinine was 3.3 and BUN was 150, so he was getting some blood. His potassium was replaced. Potassium was 2.5, calcium is 8.3, ammonia level 16. He also was found to be neutropenic with white count 0.7. SOCIAL HISTORY: Denies use of alcohol at the present time and does not smoke at the present time. FAMILY HISTORY: Noncontributory. PAST MEDICAL HISTORY: As I mentioned earlier. MEDICATIONS: Prior to admission reviewed. He was on torsemide 60 mg a day, gabapentin 300 mg twice a day, potassium chloride replacement, aspirin, Nexium, multivitamin, calcium, and Zithromax. He is also receiving lactulose and allopurinol. REVIEW OF SYSTEMS: Positive for blood in stool. He does have chronic weakness, chronic shortness of breath, no fever, no chills, no chest pain. PHYSICAL EXAMINATION: GENERAL: Awake, alert, and oriented. VITAL SIGNS: Blood pressure 120/53, heart rate 61, and afebrile. HEENT: Pupils are round. NECK: Supple. LUNGS: Decreased air movements. CARDIOVASCULAR: [place] [address] CONSULTATION Name: BROWN HUA Room: [address] IN [facility]#: [id number] Admission: 08/29/18 Attend Phys: Martin Guerrero Discharge: Date of : 52 Report #: [id number] ABDOMEN: Soft. Mildly distended. LOWER EXTREMITIES: No edema. LABORATORY DATA: Hemoglobin 6.8, serum sodium 139, potassium 2.5, chloride 101, carbon dioxide 26, BUN of 150, and creatinine 3.1. ASSESSMENT: 1. Acute kidney injury due to gastrointestinal bleed. 2. Gastrointestinal bleed. 3. Chronic hypokalemia. 4. Chronic kidney disease stage 4. 5. Liver cirrhosis. PLAN: 1. Transfusion. 2. GI consultation. 3. Follow his labs. 4. He is not a dialysis candidate. 5. Ensure good p.o. intake of fluids. I would not give him any IV fluids for now, but make sure he drinks water. Thank you very much for asking my opinion on acute kidney injury. <ELECTRONICALLY SIGNED> By: Hari Galvez MD 09/01/18 1438 1629 [id number] Galvez MD /nt
--- NOTE | 2018-09-01 15:34 | NUR ---
CONTINUE TO FOLLOW, MET WITH PT AFTER HIS EGD. STATES STILL NOT FEELING GOOD. PT DID CONFIRM THAT HAS BEEN DOING WELL AT HOME WITH AND CHILDREN. DENIES ANY CURRENT DC NEEDS. STATES HE HAS BEEN UP IN ROOM. ENCOURAGED ACTIVITY. WILL FOLLOW
[2018-09-02] VITALS: BP 104/50
--- NOTE | 2018-09-02 01:40 | NUR ---
ASSUMED CARE OF PT AT 1900. PT IS ALERT AND ORIENTED. VSS. PERRLA. NO COMPLAINTS OF PAIN. PT IS IN AFIB ON THE TELEMETRY. PT IS RESTING COMFORTABLY IN BED. RESPIRATIONS ARE EVEN AND NONLABORED. WILL CONTINUE TO MONITOR PT.
[2018-09-02 03:43] LABS: ABSOLUTE EOSINOPHILS 0.2 thou/uL (0.0-0.7); ABSOLUTE LYMPHOCYTES 0.4 thou/uL (0.8-5.3); ABSOLUTE MONOCYTES 0.3 thou/uL (0.0-1.2); ABSOLUTE NEUTROPHILS 2.5 thou/uL (1.6-8.1); BASOPHILS 0.7 %; EOSINOPHILS 7.2 %; HEMATOCRIT 23.7 % (42.0-52.0); LYMPHOCYTES 12.4 %; MCH 31.9 pg (26.0-34.0); MCHC 33.8 g/dL (28.0-37.0); MCV 94.2 fL (80.0-100.0); MONOCYTES 7.4 %; MPV 8.8 fl. (7.2-11.1); NUCLEATED RBCS 1 /100WBC; PLATELET COUNT* 219 thou/uL (150-400); POLYS 72.3 %; RBC 2.52 mil/uL (4.50-6.00); RDW-CV 17.7 % (10.5-14.5); WBC 3.4 thou/uL (4.0-11.0)
[2018-09-02 04:00] VITALS: BP 102/31
[2018-09-02 04:05] LABS: INR 1.3; PROTIME 13.1 Seconds (9.20-11.50)
[2018-09-02 04:41] LABS: ALBUMIN 2.5 g/dL (3.4-5.0); ALKALINE PHOSPHATASE 195 U/L (46-116); ANION GAP 12 mmol/L (7-16); BUN 124 mg/dL (7-18); CALCIUM 8.4 mg/dL (8.5-10.1); CHLORIDE 105 mmol/L (98-107); CO2 25 mmol/L (21-32); CREATININE 3.1 mg/dL (0.6-1.3); GLUCOSE 111 mg/dL (70-99); POTASSIUM 3.6 mmol/L (3.5-5.1); SGOT 16 U/L (15-37); SGPT 21 U/L (30-65); SODIUM 142 mmol/L (136-145); TOTAL BILIRUBIN 0.7 mg/dL (<0.1-1.0); TOTAL PROTEIN 6.2 g/dL (6.4-8.2)
[2018-09-02 06:10] LABS: ESR (SEDRATE) 65 mm/hr (0-20)
[2018-09-02 08:00] VITALS: BP 108/55
--- NOTE | 2018-09-02 11:02 | CON ---
[address] [address] CONSULTATION Name: BROWN HUA Room: [address] IN M.R.#: [id number] Admission: 08/29/18 Attend Phys: Martin Guerrero Discharge: Date of : 52 Report #: [id number] THIS REPORT FOR: //name// CC: Brenna Lunsford DATE OF SERVICE: 08/31/2018 ATTENDING PHYSICIAN: Dr. Lunsford. REASON FOR EVALUATION: Pneumonitis in the setting of pancytopenia, pharyngitis. HISTORY OF PRESENT ILLNESS: Chart reviewed, patient examined. This is a 67-year-old man that I am familiar with who was hospitalized in July, diagnosed with skin and soft tissue infection, had MRSA septicemia, was actually hospitalized in August apparently as well with complaints of congestive heart failure, was decompensated, responded to therapy and some question of pneumonia as well. He is readmitted through the Emergency Room with complaints of progressive weakness, hematochezia. It is notable that he has hemorrhoids. On GI evaluation, was found to have upper tract ulcers as well. At some point, did require transfusion which perhaps contributed to the CHF exacerbation. He is at least moderately encephalopathic at this point. Evaluation started in the Emergency Room noting chest x-ray with patchy bibasilar atelectasis or pneumonitis. White count was initially 0.7 with ANC of 300, H and H was 6.5 and 19.3, platelets of 413. Lactic acid was 1.3. Did have blood cultures collected at that time and they were sterile thus far. Influenza antigen was negative for A and B. Rapid strep was negative as well. At this point, he complains of a sore throat primarily, it is somewhat difficult for him to talk. He does admit to some dysphagia and odynophagia as well, although he can take fluids. He has some mild degree of dyspnea at rest. He is not aware of any fevers, none have been recorded since his admission. He is empirically started on antimicrobials with fluconazole as well as meropenem. ALLERGIES: LISTED TO PENICILLIN, WHICH CAUSES URTICARIA; CEPHALOSPORIN, URTICARIA WELL; ZYVOX, THROMBOCYTOPENIA; ENOXAPARIN. MEDICATIONS: Include fluconazole, lactulose, calcitriol, folic acid, gabapentin, torsemide, allopurinol, metoprolol, pantoprazole, ondansetron, meropenem. PAST MEDICAL HISTORY: Does have mitral and aortic valve replacements, hypertension, gout, atrial fibrillation, cardiomyopathy with history of congestive heart failure, sleep apnea, peripheral vascular disease, has venous stasis insufficiency with ulcers, previous history of lower extremity skin and soft tissue infections, peripheral neuropathy, renal failure, [place] [address] CONSULTATION Name: BROWN HUA Room: [address] IN .R.#: [id number] Admission: 08/29/18 Attend Phys: Martin Guerrero Discharge: Date of : 52 Report #: [id number] SOCIAL HISTORY: Former smoker, occasional ethanol. No illicit drug use. FAMILY HISTORY: Noncontributory. REVIEW OF SYSTEMS: Not reliably obtained. PHYSICAL EXAMINATION: GENERAL: He appears chronically ill, undernourished. He is in moderate distress. VITAL SIGNS: Temperature 98.2, pulse 65, respirations 14, blood pressure 94/38. SKIN: Warm, dry. HEENT: Normocephalic. Extraocular muscles intact. NECK: Supple. LUNGS: He has got some end expiratory wheezes. He has got some crackles, some coarse sounds. HEART: Irregular. He has got valve clicks, soft murmur. ABDOMEN: Soft, nontender, nondistended. EXTREMITIES: No cyanosis. Does have lower extremity dressings that are maintained. GENITOURINARY AND RECTAL: Deferred. LABORATORY DATA: Group A strep assay was negative. Electrolytes: Sodium 141, potassium 3.5, chloride 104, bicarbonate is 22, BUN and creatinine 142 and 3.3, anion gap of 15. AST of 16, ALT of 24, albumin of 2.4, total protein 6.0, estimated GFR 19. Influenzae A and B antigen were not detected. Initial CBC: White count of 0.7, H and H 6.5 and 19.3, platelets of 413. Repeat this morning, white count of 2.4, H and H 8.0 and 23.6, platelets of 253. Urinalysis unremarkable. Blood cultures sterile. Chest x-ray as described above. Ammonia level was 16. ProBNP was 6886. ASSESSMENT: Pancytopenia complicated by appears to be pneumonitis, multiorgan dysfunction including renal failure and pharyngitis. We will continue empiric therapy. We will go ahead and add acyclovir. At some point, may need to have endoscopy to confirm any sort of an inflammatory process. I am suspecting that as his white count improves, things should get better, although is not entirely clear to me as to the cause. Hematology/Oncology to evaluate as well. He certainly has repeated hospitalizations for significant illness at this point. Persistent issues with anemia suggest possible ongoing bleeding. We will have to monitor expectantly. <ELECTRONICALLY SIGNED> By: Andrew Valdez MD 09/02/18 1102 0936 [id number] Valdez MD /юлия
[2018-09-02 12:16] VITALS: BP 127/47
[2018-09-02 18:08] LABS: GLOBULIN TOTAL 2.7 g/dL (2.2-3.9); M-SPIKE Not Observed g/dL (Not Observed)
--- NOTE | 2018-09-02 18:45 | NUR ---
RECIEVED REPORT FROM MARLO HILL. ASSUMED CARE OF PT AROUND 0730. PT A&O X4. VSS. 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 AM ASSESSMENT AND VITALS COMPLETED CHARTED. IV INTACT. PT WENT DOWN FOR SMALL BOWEL SERIES THIS AM, BUT REFUSED TEST ONCE THERE. DR BURRELL AND GI SPOKE WITH PT - PT AGREED TO COMPLETE TEST. PT OFF UNI FOR SMALL BOWEL SERIES FROM AROUND 1200 TO 1800. MEDS PER EMAR. PT REPORTED "NEUROPAHTY" PAIN IN HANDS AND FEET, DENIES NEED FOR FURTHER MEDICATION FOR PAIN BEYOND GABEPENTIN. PT UP WITH SBA TO HAVE BM THIS AM. NO BLEEDING NOTED. PT SITTING UP IN BEDSIDE CHAIR WATCHING TV. FALL PRECAUTIONS IN PLACE. CALL LIGHT IS WITHIN REACH. HOURLY ROUNDING PERFORMED.
[2018-09-02 20:45] VITALS: BP 131/45
[2018-09-03] VITALS: BP 104/43
[2018-09-03 04:55] LABS: HEMOGLOBIN 7.6 gm/dL (14.0-18.0); MCH 32.1 pg (26.0-34.0); MCHC 34.4 g/dL (28.0-37.0); MCV 93.5 fL (80.0-100.0); MPV 8.5 fl. (7.2-11.1); RBC 2.35 mil/uL (4.50-6.00); RDW-CV 17.4 % (10.5-14.5); WBC 2.9 thou/uL (4.0-11.0)
[2018-09-03 04:57] VITALS: BP 92/43
[2018-09-03 05:11] LABS: ALBUMIN 2.5 g/dL (3.4-5.0); CALCIUM 8.4 mg/dL (8.5-10.1); CREATININE 2.4 mg/dL (0.6-1.3); MAGNESIUM 1.8 mg/dL (1.8-2.4); TOTAL BILIRUBIN 0.7 mg/dL (<0.1-1.0); TOTAL PROTEIN 5.7 g/dL (6.4-8.2)
--- NOTE | 2018-09-03 07:46 | NUR ---
PT IS ABLE TO COMMUNICATE HIS NEEDS TO STAFF EFFECTIVELY. HE HAS DENIED THE NEED FOR PAIN MEDICATION UP TO THIS TIME. SMALL BOWEL SERIES PERFORMED 09/02, RESULTS STILL PENDING. GI, ID, HEME/ONC, AND NEPHROLOGY FOLLOWING.
--- NOTE | 2018-09-03 08:45 | NUR ---
REC'D REPORT FROM NOC RN, ASSUMED CARE OF PATIENT APPROX 0730. A&OX4, ABLE TO COMMUNICATE NEEDS TO STAFF. ASSESSMENT COMPLETE, VS OBTAINED. CONSUMER LENDER IN PLACE, AFIB. PATIENT UP AD GERMAINE IN ROOM WITH STEADY GAIT. APPROPRIATE USE OF CALL LIGHT WHEN IN NEED OF ASSISTANCE. HOURLY ROUNDING FOR SAFETY AND PATIENT NEEDS.
[2018-09-03 09:03] VITALS: BP 125/50
--- NOTE | 2018-09-03 10:06 | PATH ---
[address] [address] PATHOLOGY RPT PROCEDURE Name: SOM HUA Room: [address] IN .R.#: [id number] Admission: 08/29/18 Date of : 52 Discharge: Report #: [id number] Path Case #: [id number] [facility] Accession Number: [id number] . 01 Material submitted: . PART A: small bowel - SMALL BOWEL BIOPSY PART B: duodenum bulb - BIOPSY DUODENAL BLUB . 01 Clinical history: . Flat and villi, possible celiac, weakness, GI bleed . 02 Diagnosis: A. Small bowel biopsy: - Mild nonspecific active duodenitis, negative for granulomas, significant intraepithelial lymphocytosis, viral inclusions and dysplasia. (See comment). . B. Biopsy duodenal bulb: - Moderate nonspecific active duodenitis with mild fibrosis and regenerative features, negative for granulomas, significant intraepithelial lymphocytosis, viral inclusions and dysplasia. (See comment). . (MALCOLM:mmflash; 09/02/2018) QLM/09/02/2018 . 02 Comment: Focal villous flattening is seen in specimen A and more vaguely, and diffusely, present in specimen B without significant intraepithelial lymphocytosis and is thought to be attributable to inflammation and celiac disease is thought to be unlikely in particular because of a conspicuous absence of significant intraepithelial lymphocytosis in both biopsies. . (MALCOLM:mml; 09/02/2018) . 02 Electronically signed: . Fuentes Diane MD, Pathologist NPI- [id number] . 01 Gross description: . A. Received in formalin labeled "Som Hua, small bowel biopsy," are 3 segments of garcia soft tissue measuring 1.2 x 0.3 x 0.2 cm in aggregate dimensions and ranging from 0.3 to 0.8 cm in maximum dimension. The specimen is submitted entirely in cassette A1. . B. Received in formalin labeled "Som Hua, biopsy duodenal bulb," are 2 segments of garcia soft tissue measuring 0.9 x 0.2 x 0.1 cm in aggregate dimensions and ranging from 0.4 to 0.5 [place] [address] PATHOLOGY RPT PROCEDURE Name: SOM HUA Room: [address] IN [facility].#: [id number] Admission: 08/29/18 Date of : 52 Discharge: Report #: [id number] Path Case #: [id number] The specimen is submitted entirely in cassette B1. (TSD; 09/01/2018) TOB/TOB . 02 Pathologist provided ICD-10: K29.80 . 02 CPT . 383615, 997003 Specimen Comment: A courtesy copy of this report has been sent to Specimen Comment: [phone], , . Specimen Comment: Report sent to ,DR SCHERER / DR GUIDO Specimen Comment: A duplicate report has been generated due to demographic updates. Performed at: [address] [facility] [address], [place], [place] [id number] MD Pola Cervantes MD Phone: [phone] Performed at: 02 [facility] [place] [address] [address], [place], [place] [id number] MD Fuentes Diane MD Phone: [phone]
--- NOTE | 2018-09-03 10:31 | NUR ---
Nutrition: Pressure ulcer on coccyx. Admitted with GIB. H/o ETOH, cirrhosis, CKD IV. Albumin 2.5, prealb 12.9, BUN 110, cr 2.4. 2gm Na diet. Wt: 188#. RD ordered Ishmael bid for wound healing. Consider Mild risk.
[2018-09-03 12:00] VITALS: BP 108/54
--- NOTE | 2018-09-03 14:50 | NUR ---
WOUND NURSE: PATIENT SEEN FOR FOLLOW UP DRESSING CHANGE TO BLE WOUNDS 2ND TO LINEAR MORPHIA: DRESSINGS REMOVED AND CLEANSED WITH SOAP AND WATER, RINSED WITH WATER, THEN PATTED DRY. APPLIED LOTION TO INTACT SKIN TOES TO KNEE. APPLIED DRAWTEX TO EACH WOUND OPENING; THEN COVERED WITH ABD'S, THEN APPLIED 3 LAYER COMPRESSION WRAPS TO BLE TOES TO KNEE. ALL WOUNDS WITHOUT SIGNIFICANT CHANGE FROM THURSDAY; LIMITED GRANULATION TISSUE IN THE WOUND BEDS, MODERATE TO LARGE AMOUNTS OF SEROUSANGUINOUS DRAINAGE NOTED. NO PERIPHERAL EDEMA NOTED DUE TO THE INTACT COMPRESSION WRAPS. SACRO-COCCYGEAL PRESSURE ULCER WITH LARGE IMPROVEMENT FROM PREVIOUS ENCOUNTER, MINIMAL SANGUINOUS DRANAGE, EARLY EPITHELIALIZATION NOTED IN THE WOUND BED. SIGNIFICANTLY LESS LOCALIZED REDNESS, NO WARMTH OR INDURATION. LESS PAINFUL PER THE PATIENT. CLEANSED WITH SOAP AND WATER, RINSED WITH WATER, THEN PATTED DRY. APPLIED SKIN PREP TO PERIWOUND; APPLIED AQUACEL AG TO ANY AREAS OF WEEPING TISSUE, COVERED WITH EXUDERM, THEN SECURED WITH SURESITE TRANSPARENT DRESSING. ABOVE PROCEDURE TOLERATED WELL BY THE PATIENT. DISCUSSED HEALTH PROMOTING MEASURES IT PERTAINS TO THE WOUND AND PATIENT REPORTED HE UNDERSTOOD.
[2018-09-03 20:20] VITALS: BP 130/55
[2018-09-04] VITALS (7 sets, daily range): BP systolic 94–135; BP diastolic 33–65
[2018-09-04 05:05] LABS: HEMATOCRIT 22.3 % (42.0-52.0); HEMOGLOBIN 7.7 gm/dL (14.0-18.0); MCH 32.1 pg (26.0-34.0); MCHC 34.5 g/dL (28.0-37.0); MCV 93.2 fL (80.0-100.0); MPV 9.4 fl. (7.2-11.1); RBC 2.39 mil/uL (4.50-6.00); WBC 3.7 thou/uL (4.0-11.0)
[2018-09-04 06:25] LABS: ALBUMIN 2.6 g/dL (3.4-5.0); CALCIUM 8.5 mg/dL (8.5-10.1); CREATININE 2.1 mg/dL (0.6-1.3); MAGNESIUM 1.7 mg/dL (1.8-2.4); PHOSPHORUS* 3.1 mg/dL (2.5-4.9); POTASSIUM 4.1 mmol/L (3.5-5.1); TOTAL BILIRUBIN 0.7 mg/dL (<0.1-1.0); TOTAL PROTEIN 5.7 g/dL (6.4-8.2)
--- NOTE | 2018-09-04 07:55 | NUR ---
PT CARE ASSUMED AT 1930. SAT MAINTAINED IN RA. CALL LIGHT WITHIN REACH AND BED IN LOW POSITION. DENIES PAIN AND SOB. ALERT AND ORIENTED X4. HOURLY ROUNDING DONE FOR PT SAFETY.
--- NOTE | 2018-09-04 12:32 | CON ---
[address] [address] CONSULTATION Name: BROWN HUA Room: [address] IN M.R.#: [id number] Admission: 08/29/18 Attend Phys: Martin Guerrero Discharge: Date of : 52 Report #: [id number] THIS REPORT FOR: //name// CC: NIKKI Lunsford DICTATED BY: Natasha Young [facility] DATE OF SERVICE: 08/30/2018 Please note at the time of this dictation, the patient was seen and physically examined by myself. REASON FOR CONSULTATION: Acute anemia, hematochezia. HISTORY OF PRESENT ILLNESS: This is a 67-year-old male who presented back to the Emergency Room after being discharged on August 21 for recurrent pneumonia. He returned for hematochezia that he attributed to his external hemorrhoids. He was also noted to be quite fatigued and weakness and he was not improving. The patient states on Thursday, he had 3 bowel movements on Thursday and Thursday of bright red blood in his stool, which is more than he normally goes. He normally has one bowel movement daily. On Thursday prior to coming in, he states he had a bowel movement, but it was back to brown in color and no blood was noted. When the patient arrived in the ER, hemoglobin was 6.5. When he was discharged on August 21, he was 7.9. The patient did undergo EGD and colonoscopy back in July of this year. EGD showed mild reactive gastritis. He had 3 duodenal ulcers that were clean based. Colonoscopy showed an AVM in the proximal ascending that was treated with APC. He had 2 mid ascending polyps removed and one rectal polyp removed and noted external hemorrhoids at that time. The patient states when this bleeding was occurring, he did put Preparation H on his hemorrhoids and he felt that that helped. ALLERGIES: PENICILLIN, ZYVOX, CEFODER AND LOVENOX. MEDICATIONS: From home include gabapentin, Demadex, Klor-Con, aspirin, Nexium, Lipitor, Zithromax and Thera-M. It also appears that he has taken methotrexate and doxycycline here in the past on his medical record sheet. PAST MEDICAL HISTORY: Includes hypertension; gout; AFib; diastolic congestive heart failure; sleep apnea; linear morphea to the bilateral lower legs; peripheral vascular disease; neuropathy; pulmonary hypertension; recent bout of pneumonia; chronic kidney disease, stage 4. PAST SURGICAL HISTORY: He has had mechanical mitral and aortic valve replacement back [place] [address] [address] CONSULTATION Name: JEISONEzequielBROWNERVIN STEPHENSONORY Room: [address] IN [facility]#: [id number] Admission: 08/29/18 Attend Phys: Martin Guerrero Discharge: Date of : 52 Report #: [id number] FAMILY HISTORY: Noncontributory. SOCIAL HISTORY: Former smoker. Denies any alcohol or illegal drug use. REVIEW OF SYSTEMS: Twelve-point review of systems is essentially negative except what is mentioned in the HPI. PHYSICAL EXAMINATION: VITAL SIGNS: Temperature 36.8, pulse 63, respirations 18, blood pressure 116/49. HEART: Regular rate and rhythm. LUNGS: Diminished, but clear. LABORATORY DATA: Hemoglobin on admission was 6.5. He has gotten 2 units of blood. He is at 7 and getting a third unit. White count is 0.7, platelets 413. BUN was 150, creatinine is 3.1 and GFR was 20. His white count when he left on August 21 was 2.8. Potassium was 2.5 on admission. Total bili is 0.8, alk phos is 216, ____ is 36, ____ is 31. IMPRESSION: 1. Hematochezia, resolved. 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 2. Acute anemia. 3. Leukopenia. 4. Chronic kidney disease, stage 4. PLAN: 1. Continue to monitor for overt bleeding. He is no longer doing this. 2. The patient is not a candidate for any endoscopy evaluation due to his low white count at the present time. 3. Consider Hematology consult if does improve. Thank you for allowing us to participate in this patient's care. Please do not hesitate to call with any questions in regard to this consult. ADDENDUM REFERRING PHYSICIAN: Jaymie Lunsford MD. I have seen and examined the patient and I agree with the plan that has been outlined by our nurse practitioner, 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 The patient is confused at this point in time, but apparently told our nurse practitioner that he had had some overt bleeding with associated weakness. The patient underwent both upper and lower endoscopy during his last hospital stay with findings of some shallow duodenal ulcers without evidence of portal hypertensive, gastropathy or esophageal varices and a few AVMs within the proximal colon, which were treated with endoscopic therapy. It is unclear what the patient is taking with regards to medication at home, but he certainly has a markedly elevated BUN to creatinine ratio suggestive of either GI bleeding from the upper GI tract or he is taking diuretics that he should not be taking. In any event, his initial white count when he came in was only 0.7. It is unclear why his white count is so low, but is now up to 1.8 and he is no longer neutropenic. liver disease secondary to chronic alcohol abuse, was admitted to the hospital with apparent anemia and possibly hematochezia. The patient is confused at this point in time, but apparently told our nurse practitioner that he had had some overt bleeding with associated weakness. The patient underwent both upper and lower endoscopy during his last hospital stay with findings of some shallow duodenal ulcers without evidence of portal hypertensive, gastropathy or esophageal varices and a few AVMs within the proximal colon, which were treated with endoscopic therapy. It is unclear what the patient is taking with regards to medication at home, but he certainly has a markedly elevated BUN to creatinine ratio suggestive of either GI bleeding from the upper GI tract or he is taking diuretics that he should not be taking. In any event, his initial white count when he came in was only 0.7. It is unclear why his white count is so low, but is now up to 1.8 and he is no longer neutropenic. At the present time, I think he will need to have at least an upper endoscopy, possibly even a small bowel enteroscopy in a couple of days once his potassium is improved. I would like to enlist the help of Hematology to evaluate the patient's recurrent anemia and determine whether or not he needs to have any type of bone marrow evaluation since it is unclear to me whether or not he has been having any overt GI bleeding. We will continue to follow the patient while he is in the hospital and make further recommendations during hospital course. is improved. I would like to enlist the help of Hematology to evaluate the patient's recurrent anemia and determine whether or not he needs to have any type of bone marrow evaluation since it is unclear to me whether or not he has been having any overt GI bleeding. We will continue to follow the patient while he is in the hospital and make further recommendations during hospital course. <ELECTRONICALLY SIGNED> By: Priyank Mancera DO 09/04/18 1232 1210 [id number] Mancera DO /nt
--- NOTE | 2018-09-04 18:25 | NUR ---
ASSUMED PT CARE REPORT RECEIVED FROM NURSE PT IS AOX4 . AFIB RATE CONTROLLED TRACING ON INFANTRY UNIT LEADER. ON RA. UP TO CHAIR WITH STAND BY ASSISTANCE. PT HAS GOOD APPETITE. LASIX GIVEN. PT HAS BEEN URINATING FREQUENTLY SINCE LASIX HAS BEEN GIVEN. MAGNESIUN REPLACED. MAG LAB WILL BE DRAWN TOMORROW. WILL CONTINUE TO MONITOR PT
[2018-09-05] VITALS (8 sets, daily range): BP systolic 103–131; BP diastolic 44–55
--- NOTE | 2018-09-05 04:56 | NUR ---
PT CARE ASSUMED AT 1930. SAT MAINTAINED IN RA. CALL LIGHT WITHIN REACH AND BED IN LOW POSITION. ALERT AND ORIENTED X4. DENIES PAIN AND SOB. HOURLY ROUNDING DONE FOR PT SAFETY.
[2018-09-05 05:11] LABS: ABSOLUTE EOSINOPHILS 0.1 thou/uL (0.0-0.7); ABSOLUTE LYMPHOCYTES 0.7 thou/uL (0.8-5.3); ABSOLUTE MONOCYTES 0.3 thou/uL (0.0-1.2); ABSOLUTE NEUTROPHILS 2.4 thou/uL (1.6-8.1); BASOPHILS 1.3 %; EOSINOPHILS 3.3 %; HEMATOCRIT 21.9 % (42.0-52.0); HEMOGLOBIN 7.4 gm/dL (14.0-18.0); LYMPHOCYTES 18.4 %; MCH 31.4 pg (26.0-34.0); MCHC 33.6 g/dL (28.0-37.0); MCV 93.4 fL (80.0-100.0); MONOCYTES 9.1 %; MPV 8.6 fl. (7.2-11.1); NUCLEATED RBCS 1 /100WBC; PLATELET COUNT* 139 thou/uL (150-400); POLYS 67.9 %; RBC 2.34 mil/uL (4.50-6.00); RDW-CV 17.7 % (10.5-14.5); WBC 3.6 thou/uL (4.0-11.0)
[2018-09-05 05:21] LABS: ALBUMIN 2.5 g/dL (3.4-5.0); CALCIUM 8.6 mg/dL (8.5-10.1); MAGNESIUM 1.8 mg/dL (1.8-2.4); TOTAL BILIRUBIN 0.6 mg/dL (<0.1-1.0); TOTAL PROTEIN 5.6 g/dL (6.4-8.2)
[2018-09-05] MEDS ORDERED: KLOR-CON M2020 MEQ PO (12:24)
[2018-09-05] MEDS ORDERED: EPOGEN2000 UNIT/ SUBQ (12:24)
[2018-09-05] MEDS ORDERED: LACTULOSE20 GM/30 M PO (12:24)
[2018-09-05] MEDS ORDERED: LEVAQUIN 500 M500 M1 PO (12:24)
[2018-09-05] MEDS ORDERED: NEURONTIN600 MG PO (12:24)
--- NOTE | 2018-09-05 14:34 | NUR ---
ASSUMED PT CARE REPORT RECEIVED FROM NURSE PT IS AOX4 MEDICINE GIVEN. WOUND CARE PICTURES TAKEN AND DRESSINGS APPLIED SEE CHARTS. DISCHARGE ORDER RECEIVED FROM HOME HEALTH PT REFUSED HOME HEALTH WAS NOTIFIED. ORDER FOR PT TO COME BACK ON THURSDAY 09/07 FOR CBC . PT AWARE. ORDER SCRIPT GIVEN. DISCHARGE INSTRUCTONS GIVEN. NEW PRESCRIPTIONS GIVEN WELL.
== END 2018-09-05 14:49 | disposition home or self-care (01) | DRG 177 ==
LOC: M.ERS 12:26 → M.2W 14:10 → M.TBA-ER 14:10 → M.2W 18:35
PROVIDERS: Internal Medicine; Internal Medicine Gastroenterology; Internal Medicine Hematology & Oncology; Internal Medicine Nephrology; Physician Assistant; ADMIT Internal Medicine
DX: J15.6 Pneumonia due to other Gram-negative bacteria (principal); N17.0 Acute kidney failure with tubular necrosis; K92.2 Gastrointestinal hemorrhage, unspecified; I50.32 Chronic diastolic (congestive) heart failure; N18.4 Chronic kidney disease, stage 4 (severe); I13.0 Hypertensive heart and chronic kidney disease with heart failure and stage 1 through stage 4 chronic kidney disease, or unspecified chronic kidney disease; I42.9 Cardiomyopathy, unspecified; D61.818 Other pancytopenia; E87.1 Hypo-osmolality and hyponatremia; K76.6 Portal hypertension; I48.91 Unspecified atrial fibrillation; M10.9 Gout, unspecified; K72.90 Hepatic failure, unspecified without coma; I73.9 Peripheral vascular disease, unspecified; K12.1 Other forms of stomatitis; D50.0 Iron deficiency anemia secondary to blood loss (chronic); K70.30 Alcoholic cirrhosis of liver without ascites; G62.9 Polyneuropathy, unspecified; K31.89 Other diseases of stomach and duodenum; I27.20 Pulmonary hypertension, unspecified; J02.9 Acute pharyngitis, unspecified; E87.6 Hypokalemia; Z95.2 Presence of prosthetic heart valve; Z86.14 Personal history of Methicillin resistant Staphylococcus aureus infection; Z87.891 Personal history of nicotine dependence; Z79.82 Long term (current) use of aspirin; Z79.899 Other long term (current) drug therapy; Z88.0 Allergy status to penicillin; Z88.1 Allergy status to other antibiotic agents; Z88.8 Allergy status to other drugs, medicaments and biological substances; Z82.49 Family history of ischemic heart disease and other diseases of the circulatory system

== ENCOUNTER → 2018-09-07 | Outpatient (CLI) | payer MEDICARE ==
[~2018-09-07] MED LIST changes: +EPOGEN2000 UNIT/ SUBQ; +FOLIC ACID1 MG PO; +IRON325 PO; +LACTULOSE20 GM/30 M PO; +LEVAQUIN 500 M500 M1 PO
[2018-09-07 09:43] LABS: HEMATOCRIT 22.2 % (42.0-52.0); HEMOGLOBIN 7.3 gm/dL (14.0-18.0); MCH 31.1 pg (26.0-34.0); MCHC 32.8 g/dL (28.0-37.0); MCV 94.9 fL (80.0-100.0); MPV 8.2 fl. (7.2-11.1); RBC 2.34 mil/uL (4.50-6.00); WBC 4.3 thou/uL (4.0-11.0)
== END ==
LOC: M.WC 08:09
PROVIDERS: Internal Medicine
DX: E11.622 Type 2 diabetes mellitus with other skin ulcer (principal); L97.811 Non-pressure chronic ulcer of other part of right lower leg limited to breakdown of skin; L97.821 Non-pressure chronic ulcer of other part of left lower leg limited to breakdown of skin; L97.321 Non-pressure chronic ulcer of left ankle limited to breakdown of skin; L97.221 Non-pressure chronic ulcer of left calf limited to breakdown of skin; I87.2 Venous insufficiency (chronic) (peripheral); L94.0 Localized scleroderma [morphea]; Z87.891 Personal history of nicotine dependence

== ENCOUNTER → 2018-09-10 | Outpatient (CLI) | payer MEDICARE | LOC: M.WC 05:02 | DX: E11.622 Type 2 diabetes mellitus with other skin ulcer (principal); L97.811 Non-pressure chronic ulcer of other part of right lower leg limited to breakdown of skin; L97.821 Non-pressure chronic ulcer of other part of left lower leg limited to breakdown of skin; L97.321 Non-pressure chronic ulcer of left ankle limited to breakdown of skin; L97.221 Non-pressure chronic ulcer of left calf limited to breakdown of skin; L94.0 Localized scleroderma [morphea]; I87.2 Venous insufficiency (chronic) (peripheral); Z87.891 Personal history of nicotine dependence ==

== ENCOUNTER → 2018-09-14 | Outpatient (CLI) | payer MEDICARE | LOC: M.WC 05:02 | DX: E11.622 Type 2 diabetes mellitus with other skin ulcer (principal); L97.812 Non-pressure chronic ulcer of other part of right lower leg with fat layer exposed; L97.822 Non-pressure chronic ulcer of other part of left lower leg with fat layer exposed; L97.222 Non-pressure chronic ulcer of left calf with fat layer exposed; L97.322 Non-pressure chronic ulcer of left ankle with fat layer exposed; I87.2 Venous insufficiency (chronic) (peripheral); L94.0 Localized scleroderma [morphea]; Z87.891 Personal history of nicotine dependence ==

== ENCOUNTER → 2018-09-17 | Outpatient (CLI) | payer MEDICARE | LOC: M.WC 04:42 | DX: E11.622 Type 2 diabetes mellitus with other skin ulcer (principal); L97.811 Non-pressure chronic ulcer of other part of right lower leg limited to breakdown of skin; L97.821 Non-pressure chronic ulcer of other part of left lower leg limited to breakdown of skin; L97.321 Non-pressure chronic ulcer of left ankle limited to breakdown of skin; L97.221 Non-pressure chronic ulcer of left calf limited to breakdown of skin; I87.2 Venous insufficiency (chronic) (peripheral); L94.0 Localized scleroderma [morphea]; Z87.891 Personal history of nicotine dependence ==

== ENCOUNTER → 2018-09-21 | Outpatient (CLI) | payer MEDICARE | LOC: M.WC 05:02 | DX: E11.622 Type 2 diabetes mellitus with other skin ulcer (principal); L97.811 Non-pressure chronic ulcer of other part of right lower leg limited to breakdown of skin; L97.821 Non-pressure chronic ulcer of other part of left lower leg limited to breakdown of skin; L97.321 Non-pressure chronic ulcer of left ankle limited to breakdown of skin; L97.221 Non-pressure chronic ulcer of left calf limited to breakdown of skin; L94.0 Localized scleroderma [morphea]; I87.2 Venous insufficiency (chronic) (peripheral); Z87.891 Personal history of nicotine dependence ==

== ENCOUNTER → 2018-09-24 | Outpatient (CLI) | payer MEDICARE | LOC: M.WC 04:54 | DX: E11.622 Type 2 diabetes mellitus with other skin ulcer (principal); L97.811 Non-pressure chronic ulcer of other part of right lower leg limited to breakdown of skin; L97.821 Non-pressure chronic ulcer of other part of left lower leg limited to breakdown of skin; L97.321 Non-pressure chronic ulcer of left ankle limited to breakdown of skin; L97.221 Non-pressure chronic ulcer of left calf limited to breakdown of skin; L94.0 Localized scleroderma [morphea]; I87.2 Venous insufficiency (chronic) (peripheral); Z87.891 Personal history of nicotine dependence ==

== ENCOUNTER → 2018-09-28 | Outpatient (CLI) | payer MEDICARE | LOC: M.WC 00:21 | DX: E11.622 Type 2 diabetes mellitus with other skin ulcer (principal); L97.811 Non-pressure chronic ulcer of other part of right lower leg limited to breakdown of skin; L97.821 Non-pressure chronic ulcer of other part of left lower leg limited to breakdown of skin; L94.0 Localized scleroderma [morphea]; I87.2 Venous insufficiency (chronic) (peripheral); Z87.891 Personal history of nicotine dependence ==

== ENCOUNTER → 2018-10-01 | Outpatient (CLI) | payer MEDICARE | LOC: M.WC 00:33 | DX: E11.622 Type 2 diabetes mellitus with other skin ulcer (principal); L97.811 Non-pressure chronic ulcer of other part of right lower leg limited to breakdown of skin; L97.821 Non-pressure chronic ulcer of other part of left lower leg limited to breakdown of skin; L97.321 Non-pressure chronic ulcer of left ankle limited to breakdown of skin; L97.221 Non-pressure chronic ulcer of left calf limited to breakdown of skin; L94.0 Localized scleroderma [morphea]; I87.2 Venous insufficiency (chronic) (peripheral); Z87.891 Personal history of nicotine dependence ==

== ENCOUNTER → 2018-10-05 | Outpatient (CLI) | payer MEDICARE | LOC: M.WC 05:35 | DX: E11.622 Type 2 diabetes mellitus with other skin ulcer (principal); L97.811 Non-pressure chronic ulcer of other part of right lower leg limited to breakdown of skin; L97.821 Non-pressure chronic ulcer of other part of left lower leg limited to breakdown of skin; L97.321 Non-pressure chronic ulcer of left ankle limited to breakdown of skin; I87.2 Venous insufficiency (chronic) (peripheral); L94.0 Localized scleroderma [morphea]; Z87.891 Personal history of nicotine dependence ==

== ENCOUNTER → 2018-10-08 | Outpatient (CLI) | payer MEDICARE | LOC: M.WC 04:32 | DX: E11.622 Type 2 diabetes mellitus with other skin ulcer (principal); L97.821 Non-pressure chronic ulcer of other part of left lower leg limited to breakdown of skin; L97.811 Non-pressure chronic ulcer of other part of right lower leg limited to breakdown of skin; L97.321 Non-pressure chronic ulcer of left ankle limited to breakdown of skin; L94.0 Localized scleroderma [morphea]; I87.2 Venous insufficiency (chronic) (peripheral); Z87.891 Personal history of nicotine dependence ==

== ENCOUNTER → 2018-10-12 | Outpatient (CLI) | payer MEDICARE | LOC: M.WC 05:21 | DX: E11.622 Type 2 diabetes mellitus with other skin ulcer (principal); L97.811 Non-pressure chronic ulcer of other part of right lower leg limited to breakdown of skin; L97.821 Non-pressure chronic ulcer of other part of left lower leg limited to breakdown of skin; L97.321 Non-pressure chronic ulcer of left ankle limited to breakdown of skin; I87.2 Venous insufficiency (chronic) (peripheral); L94.0 Localized scleroderma [morphea]; Z87.891 Personal history of nicotine dependence ==

== ENCOUNTER → 2018-10-19 | Outpatient (CLI) | payer MEDICARE | LOC: M.WC 05:22 | DX: E11.622 Type 2 diabetes mellitus with other skin ulcer (principal); L97.811 Non-pressure chronic ulcer of other part of right lower leg limited to breakdown of skin; L97.821 Non-pressure chronic ulcer of other part of left lower leg limited to breakdown of skin; L97.321 Non-pressure chronic ulcer of left ankle limited to breakdown of skin; L94.0 Localized scleroderma [morphea]; I87.2 Venous insufficiency (chronic) (peripheral); Z87.891 Personal history of nicotine dependence ==

== ENCOUNTER → 2018-10-22 | Outpatient (CLI) | payer MEDICARE | LOC: M.WC 04:04 | DX: E11.622 Type 2 diabetes mellitus with other skin ulcer (principal); L97.811 Non-pressure chronic ulcer of other part of right lower leg limited to breakdown of skin; L97.821 Non-pressure chronic ulcer of other part of left lower leg limited to breakdown of skin; L97.321 Non-pressure chronic ulcer of left ankle limited to breakdown of skin; L94.0 Localized scleroderma [morphea]; I87.2 Venous insufficiency (chronic) (peripheral); Z87.891 Personal history of nicotine dependence ==

== ENCOUNTER → 2018-10-26 | Outpatient (CLI) | payer MEDICARE | LOC: M.WC 05:15 | DX: E11.622 Type 2 diabetes mellitus with other skin ulcer (principal); L97.811 Non-pressure chronic ulcer of other part of right lower leg limited to breakdown of skin; L97.821 Non-pressure chronic ulcer of other part of left lower leg limited to breakdown of skin; L97.321 Non-pressure chronic ulcer of left ankle limited to breakdown of skin; L94.0 Localized scleroderma [morphea]; I87.2 Venous insufficiency (chronic) (peripheral); Z87.891 Personal history of nicotine dependence ==

== ENCOUNTER → 2018-10-29 | Outpatient (CLI) | payer MEDICARE | LOC: M.WC 05:05 | DX: L97.811 Non-pressure chronic ulcer of other part of right lower leg limited to breakdown of skin (principal); L97.821 Non-pressure chronic ulcer of other part of left lower leg limited to breakdown of skin; L97.321 Non-pressure chronic ulcer of left ankle limited to breakdown of skin; I87.2 Venous insufficiency (chronic) (peripheral); L94.0 Localized scleroderma [morphea]; Z87.891 Personal history of nicotine dependence ==

== ENCOUNTER → 2018-11-02 | Outpatient (CLI) | payer MEDICARE | LOC: M.WC 05:23 | DX: E11.622 Type 2 diabetes mellitus with other skin ulcer (principal); L97.811 Non-pressure chronic ulcer of other part of right lower leg limited to breakdown of skin; L97.821 Non-pressure chronic ulcer of other part of left lower leg limited to breakdown of skin; L97.321 Non-pressure chronic ulcer of left ankle limited to breakdown of skin; I87.2 Venous insufficiency (chronic) (peripheral); L94.0 Localized scleroderma [morphea]; Z87.891 Personal history of nicotine dependence ==

== ENCOUNTER → 2018-11-05 | Outpatient (CLI) | payer MEDICARE | LOC: M.WC 05:20 | DX: E11.622 Type 2 diabetes mellitus with other skin ulcer (principal); L97.811 Non-pressure chronic ulcer of other part of right lower leg limited to breakdown of skin; L97.821 Non-pressure chronic ulcer of other part of left lower leg limited to breakdown of skin; L97.321 Non-pressure chronic ulcer of left ankle limited to breakdown of skin; L94.0 Localized scleroderma [morphea]; I87.2 Venous insufficiency (chronic) (peripheral); Z87.891 Personal history of nicotine dependence ==

== ENCOUNTER → 2018-11-09 | Outpatient (CLI) | payer MEDICARE | LOC: M.WC 05:07 | DX: E11.622 Type 2 diabetes mellitus with other skin ulcer (principal); L97.821 Non-pressure chronic ulcer of other part of left lower leg limited to breakdown of skin; L97.811 Non-pressure chronic ulcer of other part of right lower leg limited to breakdown of skin; L97.321 Non-pressure chronic ulcer of left ankle limited to breakdown of skin; I87.2 Venous insufficiency (chronic) (peripheral); L94.0 Localized scleroderma [morphea]; Z87.891 Personal history of nicotine dependence ==

== ENCOUNTER → 2018-11-12 | Outpatient (CLI) | payer MEDICARE | LOC: M.WC 05:37 | DX: E11.622 Type 2 diabetes mellitus with other skin ulcer (principal); L97.821 Non-pressure chronic ulcer of other part of left lower leg limited to breakdown of skin; L97.811 Non-pressure chronic ulcer of other part of right lower leg limited to breakdown of skin; L97.321 Non-pressure chronic ulcer of left ankle limited to breakdown of skin; I87.2 Venous insufficiency (chronic) (peripheral); L94.0 Localized scleroderma [morphea]; Z87.891 Personal history of nicotine dependence ==

== ENCOUNTER → 2018-11-16 | Outpatient (CLI) | payer MEDICARE | LOC: M.WC 04:55 | DX: E11.621 Type 2 diabetes mellitus with foot ulcer (principal); L97.821 Non-pressure chronic ulcer of other part of left lower leg limited to breakdown of skin; L97.811 Non-pressure chronic ulcer of other part of right lower leg limited to breakdown of skin; L97.321 Non-pressure chronic ulcer of left ankle limited to breakdown of skin; I87.2 Venous insufficiency (chronic) (peripheral); L94.0 Localized scleroderma [morphea]; Z87.891 Personal history of nicotine dependence ==

== ENCOUNTER → 2018-11-19 | Outpatient (CLI) | payer MEDICARE | LOC: M.WC 05:05 | DX: E11.622 Type 2 diabetes mellitus with other skin ulcer (principal); L97.811 Non-pressure chronic ulcer of other part of right lower leg limited to breakdown of skin; L97.821 Non-pressure chronic ulcer of other part of left lower leg limited to breakdown of skin; L97.321 Non-pressure chronic ulcer of left ankle limited to breakdown of skin; L94.0 Localized scleroderma [morphea]; I87.2 Venous insufficiency (chronic) (peripheral); Z87.891 Personal history of nicotine dependence ==

== ENCOUNTER → 2018-11-23 | Outpatient (CLI) | payer MEDICARE | LOC: M.WC 05:13 | DX: E11.622 Type 2 diabetes mellitus with other skin ulcer (principal); L97.811 Non-pressure chronic ulcer of other part of right lower leg limited to breakdown of skin; L97.821 Non-pressure chronic ulcer of other part of left lower leg limited to breakdown of skin; L97.321 Non-pressure chronic ulcer of left ankle limited to breakdown of skin; L94.0 Localized scleroderma [morphea]; I87.2 Venous insufficiency (chronic) (peripheral); Z87.891 Personal history of nicotine dependence ==

== ENCOUNTER → 2018-11-30 | Outpatient (CLI) | payer MEDICARE | LOC: M.WC 05:11 | DX: E11.622 Type 2 diabetes mellitus with other skin ulcer (principal); L97.811 Non-pressure chronic ulcer of other part of right lower leg limited to breakdown of skin; L97.821 Non-pressure chronic ulcer of other part of left lower leg limited to breakdown of skin; L97.321 Non-pressure chronic ulcer of left ankle limited to breakdown of skin; L94.0 Localized scleroderma [morphea]; I87.2 Venous insufficiency (chronic) (peripheral); Z87.891 Personal history of nicotine dependence ==

== ENCOUNTER → 2018-12-03 | Outpatient (CLI) | payer MEDICARE | LOC: M.WC 01:45 | DX: E11.622 Type 2 diabetes mellitus with other skin ulcer (principal); L97.811 Non-pressure chronic ulcer of other part of right lower leg limited to breakdown of skin; L97.821 Non-pressure chronic ulcer of other part of left lower leg limited to breakdown of skin; L97.321 Non-pressure chronic ulcer of left ankle limited to breakdown of skin; L94.0 Localized scleroderma [morphea]; I87.2 Venous insufficiency (chronic) (peripheral); Z87.891 Personal history of nicotine dependence ==

== ENCOUNTER → 2018-12-07 | Outpatient (CLI) | payer MEDICARE | LOC: M.WC 04:46 | DX: E11.622 Type 2 diabetes mellitus with other skin ulcer (principal); L97.812 Non-pressure chronic ulcer of other part of right lower leg with fat layer exposed; L97.822 Non-pressure chronic ulcer of other part of left lower leg with fat layer exposed; L97.322 Non-pressure chronic ulcer of left ankle with fat layer exposed; L94.0 Localized scleroderma [morphea]; I87.2 Venous insufficiency (chronic) (peripheral); Z87.891 Personal history of nicotine dependence ==

== ENCOUNTER → 2018-12-10 | Outpatient (CLI) | payer MEDICARE | LOC: M.WC 04:38 | DX: E11.622 Type 2 diabetes mellitus with other skin ulcer (principal); L97.811 Non-pressure chronic ulcer of other part of right lower leg limited to breakdown of skin; L97.821 Non-pressure chronic ulcer of other part of left lower leg limited to breakdown of skin; L97.321 Non-pressure chronic ulcer of left ankle limited to breakdown of skin; L94.0 Localized scleroderma [morphea]; I87.2 Venous insufficiency (chronic) (peripheral); Z87.891 Personal history of nicotine dependence ==

== ENCOUNTER → 2018-12-14 | Outpatient (CLI) | payer MEDICARE | LOC: M.WC 04:56 | DX: E11.622 Type 2 diabetes mellitus with other skin ulcer (principal); L97.811 Non-pressure chronic ulcer of other part of right lower leg limited to breakdown of skin; L97.821 Non-pressure chronic ulcer of other part of left lower leg limited to breakdown of skin; L97.321 Non-pressure chronic ulcer of left ankle limited to breakdown of skin; S80.211A Abrasion, right knee, initial encounter; L94.0 Localized scleroderma [morphea]; I87.2 Venous insufficiency (chronic) (peripheral); Z87.891 Personal history of nicotine dependence; X58.XXXA Exposure to other specified factors, initial encounter; Y93.89 Activity, other specified; Y92.89 Other specified places as the place of occurrence of the external cause; Y99.8 Other external cause status ==

== ENCOUNTER → 2018-12-17 | Outpatient (CLI) | payer MEDICARE | LOC: M.WC 05:02 | DX: E11.622 Type 2 diabetes mellitus with other skin ulcer (principal); L97.811 Non-pressure chronic ulcer of other part of right lower leg limited to breakdown of skin; L97.821 Non-pressure chronic ulcer of other part of left lower leg limited to breakdown of skin; L97.321 Non-pressure chronic ulcer of left ankle limited to breakdown of skin; S80.211D Abrasion, right knee, subsequent encounter; L94.0 Localized scleroderma [morphea]; I87.2 Venous insufficiency (chronic) (peripheral); Z87.891 Personal history of nicotine dependence; X58.XXXD Exposure to other specified factors, subsequent encounter ==

== ENCOUNTER → 2018-12-21 | Outpatient (CLI) | payer MEDICARE | LOC: M.WC 04:33 | DX: E11.622 Type 2 diabetes mellitus with other skin ulcer (principal); L97.812 Non-pressure chronic ulcer of other part of right lower leg with fat layer exposed; L97.822 Non-pressure chronic ulcer of other part of left lower leg with fat layer exposed; L97.322 Non-pressure chronic ulcer of left ankle with fat layer exposed; S80.211D Abrasion, right knee, subsequent encounter; L94.0 Localized scleroderma [morphea]; I87.2 Venous insufficiency (chronic) (peripheral); X58.XXXD Exposure to other specified factors, subsequent encounter ==

== ENCOUNTER → 2018-12-23 | Outpatient (CLI) | payer MEDICARE | LOC: M.WC 05:28 | DX: E11.622 Type 2 diabetes mellitus with other skin ulcer (principal); L97.811 Non-pressure chronic ulcer of other part of right lower leg limited to breakdown of skin; L97.821 Non-pressure chronic ulcer of other part of left lower leg limited to breakdown of skin; L97.321 Non-pressure chronic ulcer of left ankle limited to breakdown of skin; S80.211D Abrasion, right knee, subsequent encounter; L94.0 Localized scleroderma [morphea]; I87.2 Venous insufficiency (chronic) (peripheral); Z87.891 Personal history of nicotine dependence; X58.XXXD Exposure to other specified factors, subsequent encounter ==

== ENCOUNTER → 2018-12-28 | Outpatient (CLI) | payer MEDICARE | LOC: M.WC 05:15 | DX: E11.622 Type 2 diabetes mellitus with other skin ulcer (principal); L97.811 Non-pressure chronic ulcer of other part of right lower leg limited to breakdown of skin; L97.821 Non-pressure chronic ulcer of other part of left lower leg limited to breakdown of skin; L97.321 Non-pressure chronic ulcer of left ankle limited to breakdown of skin; S81.011D Laceration without foreign body, right knee, subsequent encounter; S80.211D Abrasion, right knee, subsequent encounter; L94.0 Localized scleroderma [morphea]; I87.2 Venous insufficiency (chronic) (peripheral); Z87.891 Personal history of nicotine dependence; X58.XXXD Exposure to other specified factors, subsequent encounter ==

== ENCOUNTER → 2018-12-31 | Outpatient (CLI) | payer MEDICARE | LOC: M.WC 05:31 | DX: E11.622 Type 2 diabetes mellitus with other skin ulcer (principal); L97.811 Non-pressure chronic ulcer of other part of right lower leg limited to breakdown of skin; L97.821 Non-pressure chronic ulcer of other part of left lower leg limited to breakdown of skin; L97.321 Non-pressure chronic ulcer of left ankle limited to breakdown of skin; S80.211D Abrasion, right knee, subsequent encounter; I87.2 Venous insufficiency (chronic) (peripheral); L94.0 Localized scleroderma [morphea]; Z87.891 Personal history of nicotine dependence; X58.XXXD Exposure to other specified factors, subsequent encounter ==

== ENCOUNTER → 2019-01-04 | Outpatient (CLI) | payer MEDICARE | LOC: M.WC 05:25 | DX: E11.622 Type 2 diabetes mellitus with other skin ulcer (principal); L97.812 Non-pressure chronic ulcer of other part of right lower leg with fat layer exposed; L97.322 Non-pressure chronic ulcer of left ankle with fat layer exposed; L97.821 Non-pressure chronic ulcer of other part of left lower leg limited to breakdown of skin; S81.011D Laceration without foreign body, right knee, subsequent encounter; L94.0 Localized scleroderma [morphea]; I87.2 Venous insufficiency (chronic) (peripheral); Z87.891 Personal history of nicotine dependence; X58.XXXD Exposure to other specified factors, subsequent encounter ==

== ENCOUNTER → 2019-01-07 | Outpatient (CLI) | payer MEDICARE | LOC: M.WC 05:03 | DX: E11.622 Type 2 diabetes mellitus with other skin ulcer (principal); L97.811 Non-pressure chronic ulcer of other part of right lower leg limited to breakdown of skin; L97.821 Non-pressure chronic ulcer of other part of left lower leg limited to breakdown of skin; L97.321 Non-pressure chronic ulcer of left ankle limited to breakdown of skin; S81.011D Laceration without foreign body, right knee, subsequent encounter; L94.0 Localized scleroderma [morphea]; I87.2 Venous insufficiency (chronic) (peripheral); Z87.891 Personal history of nicotine dependence; X58.XXXD Exposure to other specified factors, subsequent encounter ==

== ENCOUNTER → 2019-01-11 | Outpatient (CLI) | payer MEDICARE | LOC: M.WC 04:51 | DX: E11.622 Type 2 diabetes mellitus with other skin ulcer (principal); L97.811 Non-pressure chronic ulcer of other part of right lower leg limited to breakdown of skin; L97.821 Non-pressure chronic ulcer of other part of left lower leg limited to breakdown of skin; L97.321 Non-pressure chronic ulcer of left ankle limited to breakdown of skin; S81.011D Laceration without foreign body, right knee, subsequent encounter; L94.0 Localized scleroderma [morphea]; I87.2 Venous insufficiency (chronic) (peripheral); Z87.891 Personal history of nicotine dependence; X58.XXXD Exposure to other specified factors, subsequent encounter ==

== ENCOUNTER → 2019-01-14 | Outpatient (CLI) | payer MEDICARE | LOC: M.WC 05:15 | DX: E11.622 Type 2 diabetes mellitus with other skin ulcer (principal); L97.811 Non-pressure chronic ulcer of other part of right lower leg limited to breakdown of skin; L97.821 Non-pressure chronic ulcer of other part of left lower leg limited to breakdown of skin; L97.321 Non-pressure chronic ulcer of left ankle limited to breakdown of skin; S81.011D Laceration without foreign body, right knee, subsequent encounter; L94.0 Localized scleroderma [morphea]; I87.2 Venous insufficiency (chronic) (peripheral); Z87.891 Personal history of nicotine dependence; X58.XXXD Exposure to other specified factors, subsequent encounter ==

== ENCOUNTER → 2019-01-18 | Outpatient (CLI) | payer MEDICARE | LOC: M.WC 05:00 | DX: E11.622 Type 2 diabetes mellitus with other skin ulcer (principal); L97.811 Non-pressure chronic ulcer of other part of right lower leg limited to breakdown of skin; L97.821 Non-pressure chronic ulcer of other part of left lower leg limited to breakdown of skin; L97.321 Non-pressure chronic ulcer of left ankle limited to breakdown of skin; S81.011D Laceration without foreign body, right knee, subsequent encounter; L94.0 Localized scleroderma [morphea]; I87.2 Venous insufficiency (chronic) (peripheral); Z87.891 Personal history of nicotine dependence; X58.XXXD Exposure to other specified factors, subsequent encounter ==

== ENCOUNTER → 2019-01-21 | Outpatient (CLI) | payer MEDICARE | LOC: M.WC 04:43 | DX: E11.622 Type 2 diabetes mellitus with other skin ulcer (principal); L97.811 Non-pressure chronic ulcer of other part of right lower leg limited to breakdown of skin; L97.821 Non-pressure chronic ulcer of other part of left lower leg limited to breakdown of skin; L97.321 Non-pressure chronic ulcer of left ankle limited to breakdown of skin; S91.012D Laceration without foreign body, left ankle, subsequent encounter; L94.0 Localized scleroderma [morphea]; I87.2 Venous insufficiency (chronic) (peripheral); Z87.891 Personal history of nicotine dependence; X58.XXXD Exposure to other specified factors, subsequent encounter ==

== ENCOUNTER → 2019-01-25 | Outpatient (CLI) | payer MEDICARE | LOC: M.WC 05:36 | DX: E11.622 Type 2 diabetes mellitus with other skin ulcer (principal); L97.811 Non-pressure chronic ulcer of other part of right lower leg limited to breakdown of skin; L97.821 Non-pressure chronic ulcer of other part of left lower leg limited to breakdown of skin; L97.321 Non-pressure chronic ulcer of left ankle limited to breakdown of skin; I87.2 Venous insufficiency (chronic) (peripheral); L94.0 Localized scleroderma [morphea]; Z87.891 Personal history of nicotine dependence ==

== ENCOUNTER → 2019-01-28 | Outpatient (CLI) | payer MEDICARE | LOC: M.WC 04:50 | DX: E11.622 Type 2 diabetes mellitus with other skin ulcer (principal); L97.821 Non-pressure chronic ulcer of other part of left lower leg limited to breakdown of skin; L97.811 Non-pressure chronic ulcer of other part of right lower leg limited to breakdown of skin; L97.321 Non-pressure chronic ulcer of left ankle limited to breakdown of skin; I87.2 Venous insufficiency (chronic) (peripheral); L94.0 Localized scleroderma [morphea]; Z87.891 Personal history of nicotine dependence ==

== ENCOUNTER → 2019-02-01 | Outpatient (CLI) | payer MEDICARE | LOC: M.WC 05:15 | DX: E11.622 Type 2 diabetes mellitus with other skin ulcer (principal); L97.811 Non-pressure chronic ulcer of other part of right lower leg limited to breakdown of skin; L97.821 Non-pressure chronic ulcer of other part of left lower leg limited to breakdown of skin; L97.321 Non-pressure chronic ulcer of left ankle limited to breakdown of skin; L94.0 Localized scleroderma [morphea]; I87.2 Venous insufficiency (chronic) (peripheral); Z87.891 Personal history of nicotine dependence ==

== ENCOUNTER → 2019-02-04 | Outpatient (CLI) | payer MEDICARE | LOC: M.WC 01:58 | DX: E11.622 Type 2 diabetes mellitus with other skin ulcer (principal); L97.811 Non-pressure chronic ulcer of other part of right lower leg limited to breakdown of skin; L97.821 Non-pressure chronic ulcer of other part of left lower leg limited to breakdown of skin; L97.321 Non-pressure chronic ulcer of left ankle limited to breakdown of skin; L94.0 Localized scleroderma [morphea]; I87.2 Venous insufficiency (chronic) (peripheral); Z87.891 Personal history of nicotine dependence ==

== ENCOUNTER → 2019-02-08 | Outpatient (CLI) | payer MEDICARE | LOC: M.WC 05:12 | DX: E11.622 Type 2 diabetes mellitus with other skin ulcer (principal); L97.811 Non-pressure chronic ulcer of other part of right lower leg limited to breakdown of skin; L97.821 Non-pressure chronic ulcer of other part of left lower leg limited to breakdown of skin; L97.321 Non-pressure chronic ulcer of left ankle limited to breakdown of skin; L94.0 Localized scleroderma [morphea]; I87.2 Venous insufficiency (chronic) (peripheral); Z87.891 Personal history of nicotine dependence ==

== ENCOUNTER → 2019-02-11 | Outpatient (CLI) | payer MEDICARE | LOC: M.WC 01:45 | DX: L97.821 Non-pressure chronic ulcer of other part of left lower leg limited to breakdown of skin (principal); L97.811 Non-pressure chronic ulcer of other part of right lower leg limited to breakdown of skin; L97.321 Non-pressure chronic ulcer of left ankle limited to breakdown of skin; L94.0 Localized scleroderma [morphea]; I87.2 Venous insufficiency (chronic) (peripheral); Z87.891 Personal history of nicotine dependence ==

== ENCOUNTER → 2019-02-15 | Outpatient (CLI) | payer MEDICARE | LOC: M.WC 04:59 | DX: E11.622 Type 2 diabetes mellitus with other skin ulcer (principal); L97.811 Non-pressure chronic ulcer of other part of right lower leg limited to breakdown of skin; L97.821 Non-pressure chronic ulcer of other part of left lower leg limited to breakdown of skin; L97.321 Non-pressure chronic ulcer of left ankle limited to breakdown of skin; I87.2 Venous insufficiency (chronic) (peripheral); L94.0 Localized scleroderma [morphea]; Z87.891 Personal history of nicotine dependence ==

== ENCOUNTER → 2019-02-18 | Outpatient (CLI) | payer MEDICARE | LOC: M.WC 04:38 | DX: L97.811 Non-pressure chronic ulcer of other part of right lower leg limited to breakdown of skin (principal); L97.821 Non-pressure chronic ulcer of other part of left lower leg limited to breakdown of skin; L97.321 Non-pressure chronic ulcer of left ankle limited to breakdown of skin; I87.2 Venous insufficiency (chronic) (peripheral); L94.0 Localized scleroderma [morphea]; Z87.891 Personal history of nicotine dependence ==

== ENCOUNTER → 2019-02-22 | Outpatient (CLI) | payer MEDICARE | LOC: M.WC 04:18 | DX: E11.622 Type 2 diabetes mellitus with other skin ulcer (principal); L97.811 Non-pressure chronic ulcer of other part of right lower leg limited to breakdown of skin; L97.821 Non-pressure chronic ulcer of other part of left lower leg limited to breakdown of skin; L97.321 Non-pressure chronic ulcer of left ankle limited to breakdown of skin; L94.0 Localized scleroderma [morphea]; I87.2 Venous insufficiency (chronic) (peripheral); Z87.891 Personal history of nicotine dependence ==

== ENCOUNTER → 2019-02-25 | Outpatient (CLI) | payer MEDICARE | LOC: M.WC 04:56 | DX: E11.622 Type 2 diabetes mellitus with other skin ulcer (principal); L97.811 Non-pressure chronic ulcer of other part of right lower leg limited to breakdown of skin; L97.821 Non-pressure chronic ulcer of other part of left lower leg limited to breakdown of skin; L97.321 Non-pressure chronic ulcer of left ankle limited to breakdown of skin; L94.0 Localized scleroderma [morphea]; I87.2 Venous insufficiency (chronic) (peripheral); Z87.891 Personal history of nicotine dependence ==

== ENCOUNTER → 2019-03-01 | Outpatient (CLI) | payer MEDICARE | LOC: M.WC 04:42 | DX: E11.622 Type 2 diabetes mellitus with other skin ulcer (principal); L97.811 Non-pressure chronic ulcer of other part of right lower leg limited to breakdown of skin; L97.821 Non-pressure chronic ulcer of other part of left lower leg limited to breakdown of skin; L94.0 Localized scleroderma [morphea]; I87.2 Venous insufficiency (chronic) (peripheral); Z87.891 Personal history of nicotine dependence ==

== ENCOUNTER → 2019-03-04 | Outpatient (CLI) | payer MEDICARE | LOC: M.WC 05:11 | DX: E11.622 Type 2 diabetes mellitus with other skin ulcer (principal); L97.811 Non-pressure chronic ulcer of other part of right lower leg limited to breakdown of skin; L97.821 Non-pressure chronic ulcer of other part of left lower leg limited to breakdown of skin; L97.321 Non-pressure chronic ulcer of left ankle limited to breakdown of skin; L94.0 Localized scleroderma [morphea]; I87.2 Venous insufficiency (chronic) (peripheral); Z87.891 Personal history of nicotine dependence ==

== ENCOUNTER → 2019-03-08 | Outpatient (CLI) | payer MEDICARE | LOC: M.WC 05:10 | DX: E11.622 Type 2 diabetes mellitus with other skin ulcer (principal); L97.811 Non-pressure chronic ulcer of other part of right lower leg limited to breakdown of skin; L97.821 Non-pressure chronic ulcer of other part of left lower leg limited to breakdown of skin; L97.321 Non-pressure chronic ulcer of left ankle limited to breakdown of skin; L94.0 Localized scleroderma [morphea]; I87.2 Venous insufficiency (chronic) (peripheral); Z87.891 Personal history of nicotine dependence ==

== ENCOUNTER → 2019-03-15 | Outpatient (CLI) | payer MEDICARE | LOC: M.WC 04:40 | DX: E11.622 Type 2 diabetes mellitus with other skin ulcer (principal); L97.811 Non-pressure chronic ulcer of other part of right lower leg limited to breakdown of skin; L97.821 Non-pressure chronic ulcer of other part of left lower leg limited to breakdown of skin; L97.321 Non-pressure chronic ulcer of left ankle limited to breakdown of skin; L94.0 Localized scleroderma [morphea]; I87.2 Venous insufficiency (chronic) (peripheral); Z87.891 Personal history of nicotine dependence ==

== ENCOUNTER → 2019-03-18 | Outpatient (CLI) | payer MEDICARE | LOC: M.ULTRA 05:51 | DX: L97.919 Non-pressure chronic ulcer of unspecified part of right lower leg with unspecified severity (principal); I10 Essential (primary) hypertension; E78.5 Hyperlipidemia, unspecified; I25.10 Atherosclerotic heart disease of native coronary artery without angina pectoris; E11.51 Type 2 diabetes mellitus with diabetic peripheral angiopathy without gangrene ==

== ENCOUNTER → 2019-03-22 | Outpatient (CLI) | payer MEDICARE | LOC: M.WC 04:55 | DX: E11.622 Type 2 diabetes mellitus with other skin ulcer (principal); L97.811 Non-pressure chronic ulcer of other part of right lower leg limited to breakdown of skin; L97.321 Non-pressure chronic ulcer of left ankle limited to breakdown of skin; L94.0 Localized scleroderma [morphea]; I87.2 Venous insufficiency (chronic) (peripheral); Z87.891 Personal history of nicotine dependence ==

== ENCOUNTER → 2019-03-25 | Outpatient (CLI) | payer MEDICARE | LOC: M.WC 05:12 | DX: E11.622 Type 2 diabetes mellitus with other skin ulcer (principal); L97.811 Non-pressure chronic ulcer of other part of right lower leg limited to breakdown of skin; L97.321 Non-pressure chronic ulcer of left ankle limited to breakdown of skin; L94.0 Localized scleroderma [morphea]; I87.2 Venous insufficiency (chronic) (peripheral); Z87.891 Personal history of nicotine dependence ==

== ENCOUNTER → 2019-03-29 | Outpatient (CLI) | payer MEDICARE | LOC: M.WC 04:50 | DX: E11.622 Type 2 diabetes mellitus with other skin ulcer (principal); L97.811 Non-pressure chronic ulcer of other part of right lower leg limited to breakdown of skin; L97.321 Non-pressure chronic ulcer of left ankle limited to breakdown of skin; L94.0 Localized scleroderma [morphea]; I87.2 Venous insufficiency (chronic) (peripheral); Z87.891 Personal history of nicotine dependence ==

== ENCOUNTER → 2019-04-01 | Outpatient (CLI) | payer MEDICARE | LOC: M.WC 04:56 | DX: E11.622 Type 2 diabetes mellitus with other skin ulcer (principal); L97.811 Non-pressure chronic ulcer of other part of right lower leg limited to breakdown of skin; L97.321 Non-pressure chronic ulcer of left ankle limited to breakdown of skin; L94.0 Localized scleroderma [morphea]; I87.2 Venous insufficiency (chronic) (peripheral); Z87.891 Personal history of nicotine dependence ==

== ENCOUNTER 2019-04-04 10:49 | Emergency (ER) | payer MEDICARE ==
[~2019-04-04] VITALS: Ht 172.7 cm; Wt 86.2 kg
[2019-04-04 13:58] VITALS: BP 125/43
== END 2019-04-04 13:38 | disposition home or self-care (01) ==
LOC: M.ERS 10:49
DX: M76.61 Achilles tendinitis, right leg (principal); I12.9 Hypertensive chronic kidney disease with stage 1 through stage 4 chronic kidney disease, or unspecified chronic kidney disease; I48.91 Unspecified atrial fibrillation; I50.9 Heart failure, unspecified; N18.4 Chronic kidney disease, stage 4 (severe); M10.9 Gout, unspecified; G62.9 Polyneuropathy, unspecified; G47.30 Sleep apnea, unspecified; Z86.718 Personal history of other venous thrombosis and embolism; Z86.14 Personal history of Methicillin resistant Staphylococcus aureus infection; Z88.0 Allergy status to penicillin; Z88.1 Allergy status to other antibiotic agents; Z88.8 Allergy status to other drugs, medicaments and biological substances

== ENCOUNTER → 2019-04-08 | Outpatient (CLI) | payer MEDICARE | LOC: M.WC 04:46 | DX: E11.622 Type 2 diabetes mellitus with other skin ulcer (principal); L97.811 Non-pressure chronic ulcer of other part of right lower leg limited to breakdown of skin; L97.321 Non-pressure chronic ulcer of left ankle limited to breakdown of skin; L94.0 Localized scleroderma [morphea]; I87.2 Venous insufficiency (chronic) (peripheral); Z87.891 Personal history of nicotine dependence ==

== ENCOUNTER → 2019-04-12 | Outpatient (CLI) | payer MEDICARE | LOC: M.WC 04-05 09:00 | DX: E11.622 Type 2 diabetes mellitus with other skin ulcer (principal); L97.811 Non-pressure chronic ulcer of other part of right lower leg limited to breakdown of skin; L97.321 Non-pressure chronic ulcer of left ankle limited to breakdown of skin; L94.0 Localized scleroderma [morphea]; I87.2 Venous insufficiency (chronic) (peripheral); Z87.891 Personal history of nicotine dependence ==

== ENCOUNTER → 2019-04-19 | Outpatient (CLI) | payer MEDICARE | LOC: M.WC 04:52 | DX: E11.622 Type 2 diabetes mellitus with other skin ulcer (principal); L97.811 Non-pressure chronic ulcer of other part of right lower leg limited to breakdown of skin; L97.321 Non-pressure chronic ulcer of left ankle limited to breakdown of skin; I87.2 Venous insufficiency (chronic) (peripheral); L94.0 Localized scleroderma [morphea]; Z87.891 Personal history of nicotine dependence ==

== ENCOUNTER → 2019-04-22 | Outpatient (CLI) | payer MEDICARE | LOC: M.WC 04:08 | DX: E11.622 Type 2 diabetes mellitus with other skin ulcer (principal); L97.811 Non-pressure chronic ulcer of other part of right lower leg limited to breakdown of skin; L97.321 Non-pressure chronic ulcer of left ankle limited to breakdown of skin; L94.0 Localized scleroderma [morphea]; I87.2 Venous insufficiency (chronic) (peripheral); Z87.891 Personal history of nicotine dependence ==

== ENCOUNTER → 2019-04-26 | Outpatient (CLI) | payer MEDICARE | LOC: M.WC 02:28 | DX: E11.622 Type 2 diabetes mellitus with other skin ulcer (principal); L97.811 Non-pressure chronic ulcer of other part of right lower leg limited to breakdown of skin; L97.321 Non-pressure chronic ulcer of left ankle limited to breakdown of skin; L94.0 Localized scleroderma [morphea]; I87.2 Venous insufficiency (chronic) (peripheral); Z87.891 Personal history of nicotine dependence ==

== ENCOUNTER → 2019-04-28 | Outpatient (CLI) | payer MEDICARE | LOC: M.WC 01:50 | DX: E11.622 Type 2 diabetes mellitus with other skin ulcer (principal); L97.811 Non-pressure chronic ulcer of other part of right lower leg limited to breakdown of skin; L97.321 Non-pressure chronic ulcer of left ankle limited to breakdown of skin; L94.0 Localized scleroderma [morphea]; I87.2 Venous insufficiency (chronic) (peripheral); Z87.891 Personal history of nicotine dependence ==

== ENCOUNTER → 2019-05-03 | Outpatient (CLI) | payer MEDICARE | LOC: M.WC 05:10 | DX: E11.622 Type 2 diabetes mellitus with other skin ulcer (principal); L97.811 Non-pressure chronic ulcer of other part of right lower leg limited to breakdown of skin; L97.321 Non-pressure chronic ulcer of left ankle limited to breakdown of skin; L94.0 Localized scleroderma [morphea]; I87.2 Venous insufficiency (chronic) (peripheral); Z87.891 Personal history of nicotine dependence ==

== ENCOUNTER → 2019-05-06 | Outpatient (CLI) | payer MEDICARE | LOC: M.WC 04:06 | DX: E11.622 Type 2 diabetes mellitus with other skin ulcer (principal); L97.811 Non-pressure chronic ulcer of other part of right lower leg limited to breakdown of skin; L97.321 Non-pressure chronic ulcer of left ankle limited to breakdown of skin; L94.0 Localized scleroderma [morphea]; I87.2 Venous insufficiency (chronic) (peripheral); Z87.891 Personal history of nicotine dependence ==

== ENCOUNTER → 2019-05-10 | Outpatient (CLI) | payer MEDICARE | LOC: M.WC 03:34 | DX: E11.622 Type 2 diabetes mellitus with other skin ulcer (principal); L97.811 Non-pressure chronic ulcer of other part of right lower leg limited to breakdown of skin; L97.321 Non-pressure chronic ulcer of left ankle limited to breakdown of skin; L94.0 Localized scleroderma [morphea]; I87.2 Venous insufficiency (chronic) (peripheral); Z87.891 Personal history of nicotine dependence ==

== ENCOUNTER → 2019-05-13 | Outpatient (CLI) | payer MEDICARE | LOC: M.WC 05:18 | DX: E11.622 Type 2 diabetes mellitus with other skin ulcer (principal); L97.811 Non-pressure chronic ulcer of other part of right lower leg limited to breakdown of skin; L97.321 Non-pressure chronic ulcer of left ankle limited to breakdown of skin; L94.0 Localized scleroderma [morphea]; I87.2 Venous insufficiency (chronic) (peripheral); Z87.891 Personal history of nicotine dependence ==

== ENCOUNTER → 2019-05-17 | Outpatient (CLI) | payer MEDICARE | LOC: M.WC 05:17 | DX: E11.622 Type 2 diabetes mellitus with other skin ulcer (principal); L97.811 Non-pressure chronic ulcer of other part of right lower leg limited to breakdown of skin; L97.321 Non-pressure chronic ulcer of left ankle limited to breakdown of skin; L94.0 Localized scleroderma [morphea]; I87.2 Venous insufficiency (chronic) (peripheral); Z87.891 Personal history of nicotine dependence ==

== ENCOUNTER → 2019-05-24 | Outpatient (CLI) | payer MEDICARE | LOC: M.WC 03:17 | DX: E11.622 Type 2 diabetes mellitus with other skin ulcer (principal); L97.321 Non-pressure chronic ulcer of left ankle limited to breakdown of skin; L97.811 Non-pressure chronic ulcer of other part of right lower leg limited to breakdown of skin; L97.821 Non-pressure chronic ulcer of other part of left lower leg limited to breakdown of skin; I87.2 Venous insufficiency (chronic) (peripheral); L94.0 Localized scleroderma [morphea]; Z87.891 Personal history of nicotine dependence ==

== ENCOUNTER → 2019-05-27 | Outpatient (CLI) | payer MEDICARE | LOC: M.WC 03:48 | DX: E11.622 Type 2 diabetes mellitus with other skin ulcer (principal); L97.811 Non-pressure chronic ulcer of other part of right lower leg limited to breakdown of skin; L97.321 Non-pressure chronic ulcer of left ankle limited to breakdown of skin; L94.0 Localized scleroderma [morphea]; I87.2 Venous insufficiency (chronic) (peripheral); Z87.891 Personal history of nicotine dependence ==

== ENCOUNTER → 2019-05-31 | Outpatient (CLI) | payer MEDICARE | LOC: M.WC 04:33 | DX: E11.622 Type 2 diabetes mellitus with other skin ulcer (principal); L97.812 Non-pressure chronic ulcer of other part of right lower leg with fat layer exposed; L97.322 Non-pressure chronic ulcer of left ankle with fat layer exposed; I87.2 Venous insufficiency (chronic) (peripheral); L94.0 Localized scleroderma [morphea]; Z87.891 Personal history of nicotine dependence ==

== ENCOUNTER → 2019-06-03 | Outpatient (CLI) | payer MEDICARE | LOC: M.WC 03:36 | DX: E11.622 Type 2 diabetes mellitus with other skin ulcer (principal); L97.811 Non-pressure chronic ulcer of other part of right lower leg limited to breakdown of skin; L97.321 Non-pressure chronic ulcer of left ankle limited to breakdown of skin; L94.0 Localized scleroderma [morphea]; I87.2 Venous insufficiency (chronic) (peripheral); Z87.891 Personal history of nicotine dependence ==

== ENCOUNTER → 2019-06-07 | Outpatient (CLI) | payer MEDICARE | LOC: M.WC 03:54 | DX: E11.622 Type 2 diabetes mellitus with other skin ulcer (principal); L97.811 Non-pressure chronic ulcer of other part of right lower leg limited to breakdown of skin; L97.321 Non-pressure chronic ulcer of left ankle limited to breakdown of skin; L94.0 Localized scleroderma [morphea]; I87.2 Venous insufficiency (chronic) (peripheral); Z87.891 Personal history of nicotine dependence ==

== ENCOUNTER → 2019-06-10 | Outpatient (CLI) | payer MEDICARE | LOC: M.WC 04:03 | DX: E11.622 Type 2 diabetes mellitus with other skin ulcer (principal); L97.811 Non-pressure chronic ulcer of other part of right lower leg limited to breakdown of skin; L97.321 Non-pressure chronic ulcer of left ankle limited to breakdown of skin; L94.0 Localized scleroderma [morphea]; I87.2 Venous insufficiency (chronic) (peripheral); Z87.891 Personal history of nicotine dependence ==

== ENCOUNTER → 2019-06-14 | Outpatient (CLI) | payer MEDICARE | LOC: M.WC 04:26 | DX: E11.622 Type 2 diabetes mellitus with other skin ulcer (principal); L97.811 Non-pressure chronic ulcer of other part of right lower leg limited to breakdown of skin; L97.821 Non-pressure chronic ulcer of other part of left lower leg limited to breakdown of skin; L94.0 Localized scleroderma [morphea]; I87.2 Venous insufficiency (chronic) (peripheral); Z87.891 Personal history of nicotine dependence ==

== ENCOUNTER → 2019-06-21 | Outpatient (CLI) | payer MEDICARE | LOC: M.WC 04:36 | DX: E11.622 Type 2 diabetes mellitus with other skin ulcer (principal); L97.811 Non-pressure chronic ulcer of other part of right lower leg limited to breakdown of skin; L97.321 Non-pressure chronic ulcer of left ankle limited to breakdown of skin; L94.0 Localized scleroderma [morphea]; I87.2 Venous insufficiency (chronic) (peripheral); Z87.891 Personal history of nicotine dependence ==

== ENCOUNTER → 2019-06-24 | Outpatient (CLI) | payer MEDICARE | LOC: M.WC 01:58 | DX: E11.622 Type 2 diabetes mellitus with other skin ulcer (principal); L97.811 Non-pressure chronic ulcer of other part of right lower leg limited to breakdown of skin; L97.321 Non-pressure chronic ulcer of left ankle limited to breakdown of skin; L94.0 Localized scleroderma [morphea]; I87.2 Venous insufficiency (chronic) (peripheral); Z87.891 Personal history of nicotine dependence ==

== ENCOUNTER → 2019-06-28 | Outpatient (CLI) | payer MEDICARE | LOC: M.WC 03:46 | DX: E11.622 Type 2 diabetes mellitus with other skin ulcer (principal); L97.811 Non-pressure chronic ulcer of other part of right lower leg limited to breakdown of skin; L97.821 Non-pressure chronic ulcer of other part of left lower leg limited to breakdown of skin; L94.0 Localized scleroderma [morphea]; I87.2 Venous insufficiency (chronic) (peripheral); Z87.891 Personal history of nicotine dependence ==

== ENCOUNTER → 2019-07-05 | Outpatient (CLI) | payer MEDICARE | LOC: M.WC 04:22 | DX: E11.622 Type 2 diabetes mellitus with other skin ulcer (principal); L97.811 Non-pressure chronic ulcer of other part of right lower leg limited to breakdown of skin; L97.321 Non-pressure chronic ulcer of left ankle limited to breakdown of skin; L94.0 Localized scleroderma [morphea]; I87.2 Venous insufficiency (chronic) (peripheral); Z87.891 Personal history of nicotine dependence ==

== ENCOUNTER → 2019-07-12 | Outpatient (CLI) | payer MEDICARE | LOC: M.WC 04:40 | DX: E11.622 Type 2 diabetes mellitus with other skin ulcer (principal); L97.811 Non-pressure chronic ulcer of other part of right lower leg limited to breakdown of skin; L97.321 Non-pressure chronic ulcer of left ankle limited to breakdown of skin; L94.0 Localized scleroderma [morphea]; I87.2 Venous insufficiency (chronic) (peripheral); Z87.891 Personal history of nicotine dependence ==

== ENCOUNTER → 2019-07-19 | Outpatient (CLI) | payer MEDICARE | LOC: M.WC 04:50 | DX: E11.622 Type 2 diabetes mellitus with other skin ulcer (principal); L97.811 Non-pressure chronic ulcer of other part of right lower leg limited to breakdown of skin; L97.821 Non-pressure chronic ulcer of other part of left lower leg limited to breakdown of skin; L94.0 Localized scleroderma [morphea]; I87.2 Venous insufficiency (chronic) (peripheral); Z87.891 Personal history of nicotine dependence ==

== ENCOUNTER → 2019-07-26 | Outpatient (CLI) | payer MEDICARE | LOC: M.WC 01:36 | DX: E11.622 Type 2 diabetes mellitus with other skin ulcer (principal); L97.811 Non-pressure chronic ulcer of other part of right lower leg limited to breakdown of skin; L97.821 Non-pressure chronic ulcer of other part of left lower leg limited to breakdown of skin; L94.0 Localized scleroderma [morphea]; I87.2 Venous insufficiency (chronic) (peripheral); Z87.891 Personal history of nicotine dependence ==

== ENCOUNTER → 2019-07-29 | Outpatient (CLI) | payer MEDICARE | LOC: M.WC 05:23 | DX: E11.622 Type 2 diabetes mellitus with other skin ulcer (principal); L97.811 Non-pressure chronic ulcer of other part of right lower leg limited to breakdown of skin; L97.821 Non-pressure chronic ulcer of other part of left lower leg limited to breakdown of skin; I87.2 Venous insufficiency (chronic) (peripheral); L94.0 Localized scleroderma [morphea]; Z87.891 Personal history of nicotine dependence ==

== ENCOUNTER → 2019-08-02 | Outpatient (CLI) | payer MEDICARE | LOC: M.WC 04:24 | DX: E11.622 Type 2 diabetes mellitus with other skin ulcer (principal); L97.811 Non-pressure chronic ulcer of other part of right lower leg limited to breakdown of skin; L97.821 Non-pressure chronic ulcer of other part of left lower leg limited to breakdown of skin; L97.321 Non-pressure chronic ulcer of left ankle limited to breakdown of skin; L94.0 Localized scleroderma [morphea]; I87.2 Venous insufficiency (chronic) (peripheral) ==

== ENCOUNTER → 2019-08-09 | Outpatient (CLI) | payer MEDICARE | LOC: M.WC 04:31 | DX: E11.622 Type 2 diabetes mellitus with other skin ulcer (principal); L97.811 Non-pressure chronic ulcer of other part of right lower leg limited to breakdown of skin; L97.821 Non-pressure chronic ulcer of other part of left lower leg limited to breakdown of skin; L97.321 Non-pressure chronic ulcer of left ankle limited to breakdown of skin; L94.0 Localized scleroderma [morphea]; I87.2 Venous insufficiency (chronic) (peripheral); Z87.891 Personal history of nicotine dependence ==

== ENCOUNTER → 2019-08-12 | Outpatient (CLI) | payer MEDICARE | LOC: M.WC 03:44 | DX: E11.622 Type 2 diabetes mellitus with other skin ulcer (principal); L97.811 Non-pressure chronic ulcer of other part of right lower leg limited to breakdown of skin; L97.821 Non-pressure chronic ulcer of other part of left lower leg limited to breakdown of skin; L97.321 Non-pressure chronic ulcer of left ankle limited to breakdown of skin; L94.0 Localized scleroderma [morphea]; I87.2 Venous insufficiency (chronic) (peripheral); Z87.891 Personal history of nicotine dependence ==

== ENCOUNTER → 2019-08-16 | Outpatient (CLI) | payer MEDICARE | LOC: M.WC 03:05 | DX: E11.622 Type 2 diabetes mellitus with other skin ulcer (principal); L97.811 Non-pressure chronic ulcer of other part of right lower leg limited to breakdown of skin; L97.821 Non-pressure chronic ulcer of other part of left lower leg limited to breakdown of skin; L97.321 Non-pressure chronic ulcer of left ankle limited to breakdown of skin; L94.0 Localized scleroderma [morphea]; I87.2 Venous insufficiency (chronic) (peripheral); Z87.891 Personal history of nicotine dependence ==

== ENCOUNTER → 2019-08-19 | Outpatient (CLI) | payer MEDICARE | LOC: M.WC 05:31 | DX: L97.811 Non-pressure chronic ulcer of other part of right lower leg limited to breakdown of skin (principal); L97.321 Non-pressure chronic ulcer of left ankle limited to breakdown of skin; L97.821 Non-pressure chronic ulcer of other part of left lower leg limited to breakdown of skin; I87.2 Venous insufficiency (chronic) (peripheral); L94.0 Localized scleroderma [morphea]; Z87.891 Personal history of nicotine dependence ==

== ENCOUNTER → 2019-08-23 | Outpatient (CLI) | payer MEDICARE | LOC: M.WC 05:18 | DX: E11.622 Type 2 diabetes mellitus with other skin ulcer (principal); L97.811 Non-pressure chronic ulcer of other part of right lower leg limited to breakdown of skin; L97.821 Non-pressure chronic ulcer of other part of left lower leg limited to breakdown of skin; L97.321 Non-pressure chronic ulcer of left ankle limited to breakdown of skin; L94.0 Localized scleroderma [morphea]; I87.2 Venous insufficiency (chronic) (peripheral); Z87.891 Personal history of nicotine dependence ==

== ENCOUNTER → 2019-08-26 | Outpatient (CLI) | payer MEDICARE | LOC: M.WC 03:53 | DX: E11.622 Type 2 diabetes mellitus with other skin ulcer (principal); L97.811 Non-pressure chronic ulcer of other part of right lower leg limited to breakdown of skin; L97.821 Non-pressure chronic ulcer of other part of left lower leg limited to breakdown of skin; L97.321 Non-pressure chronic ulcer of left ankle limited to breakdown of skin; I87.2 Venous insufficiency (chronic) (peripheral); L94.0 Localized scleroderma [morphea]; Z87.891 Personal history of nicotine dependence ==

== ENCOUNTER → 2019-08-30 | Outpatient (CLI) | payer MEDICARE | LOC: M.WC 04:53 | DX: E11.622 Type 2 diabetes mellitus with other skin ulcer (principal); L97.811 Non-pressure chronic ulcer of other part of right lower leg limited to breakdown of skin; L97.821 Non-pressure chronic ulcer of other part of left lower leg limited to breakdown of skin; L97.321 Non-pressure chronic ulcer of left ankle limited to breakdown of skin; L94.0 Localized scleroderma [morphea]; I87.2 Venous insufficiency (chronic) (peripheral); Z87.891 Personal history of nicotine dependence ==

== ENCOUNTER → 2019-09-02 | Outpatient (CLI) | payer MEDICARE | LOC: M.WC 05:09 | DX: E11.622 Type 2 diabetes mellitus with other skin ulcer (principal); L97.811 Non-pressure chronic ulcer of other part of right lower leg limited to breakdown of skin; L97.321 Non-pressure chronic ulcer of left ankle limited to breakdown of skin; L97.821 Non-pressure chronic ulcer of other part of left lower leg limited to breakdown of skin; L94.0 Localized scleroderma [morphea]; I87.2 Venous insufficiency (chronic) (peripheral); Z87.891 Personal history of nicotine dependence ==

== ENCOUNTER → 2019-09-06 | Outpatient (CLI) | payer MEDICARE | LOC: M.WC 04:14 | DX: E11.622 Type 2 diabetes mellitus with other skin ulcer (principal); L97.811 Non-pressure chronic ulcer of other part of right lower leg limited to breakdown of skin; L97.821 Non-pressure chronic ulcer of other part of left lower leg limited to breakdown of skin; L97.321 Non-pressure chronic ulcer of left ankle limited to breakdown of skin; L94.0 Localized scleroderma [morphea]; I87.2 Venous insufficiency (chronic) (peripheral); Z87.891 Personal history of nicotine dependence ==

== ENCOUNTER → 2019-09-13 | Outpatient (CLI) | payer MEDICARE | LOC: M.WC 04:44 | DX: E11.622 Type 2 diabetes mellitus with other skin ulcer (principal); L97.811 Non-pressure chronic ulcer of other part of right lower leg limited to breakdown of skin; L97.321 Non-pressure chronic ulcer of left ankle limited to breakdown of skin; L97.821 Non-pressure chronic ulcer of other part of left lower leg limited to breakdown of skin; L94.0 Localized scleroderma [morphea]; I87.2 Venous insufficiency (chronic) (peripheral); Z87.891 Personal history of nicotine dependence ==

== ENCOUNTER → 2019-09-16 | Outpatient (CLI) | payer MEDICARE | LOC: M.WC 05:24 | PROVIDERS: ATTEND Emergency Medicine Undersea and Hyperbaric Medicine | DX: E11.622 Type 2 diabetes mellitus with other skin ulcer (principal); L97.811 Non-pressure chronic ulcer of other part of right lower leg limited to breakdown of skin; L97.321 Non-pressure chronic ulcer of left ankle limited to breakdown of skin; L94.0 Localized scleroderma [morphea]; I87.2 Venous insufficiency (chronic) (peripheral); Z87.891 Personal history of nicotine dependence ==

== ENCOUNTER → 2019-09-20 | Outpatient (CLI) | payer MEDICARE | LOC: M.WC 04:25 | PROVIDERS: ATTEND Emergency Medicine Undersea and Hyperbaric Medicine | DX: E11.622 Type 2 diabetes mellitus with other skin ulcer (principal); L97.811 Non-pressure chronic ulcer of other part of right lower leg limited to breakdown of skin; L97.821 Non-pressure chronic ulcer of other part of left lower leg limited to breakdown of skin; L94.0 Localized scleroderma [morphea]; I87.2 Venous insufficiency (chronic) (peripheral); Z87.891 Personal history of nicotine dependence ==

== ENCOUNTER → 2019-09-23 | Outpatient (CLI) | payer MEDICARE | LOC: M.WC 05:12 | PROVIDERS: ATTEND Emergency Medicine Undersea and Hyperbaric Medicine | DX: E11.622 Type 2 diabetes mellitus with other skin ulcer (principal); L97.811 Non-pressure chronic ulcer of other part of right lower leg limited to breakdown of skin; L97.821 Non-pressure chronic ulcer of other part of left lower leg limited to breakdown of skin; I87.2 Venous insufficiency (chronic) (peripheral); L94.0 Localized scleroderma [morphea]; Z87.891 Personal history of nicotine dependence ==

== ENCOUNTER → 2019-09-27 | Outpatient (CLI) | payer MEDICARE | LOC: M.WC 03:50 | PROVIDERS: ATTEND Emergency Medicine Undersea and Hyperbaric Medicine | DX: E11.622 Type 2 diabetes mellitus with other skin ulcer (principal); L97.811 Non-pressure chronic ulcer of other part of right lower leg limited to breakdown of skin; L97.821 Non-pressure chronic ulcer of other part of left lower leg limited to breakdown of skin; L94.0 Localized scleroderma [morphea]; I87.2 Venous insufficiency (chronic) (peripheral); Z87.891 Personal history of nicotine dependence ==

== ENCOUNTER → 2019-09-30 | Outpatient (CLI) | payer MEDICARE | LOC: M.WC 00:56 | PROVIDERS: ATTEND Emergency Medicine Undersea and Hyperbaric Medicine | DX: E11.622 Type 2 diabetes mellitus with other skin ulcer (principal); L97.811 Non-pressure chronic ulcer of other part of right lower leg limited to breakdown of skin; L97.821 Non-pressure chronic ulcer of other part of left lower leg limited to breakdown of skin; L94.0 Localized scleroderma [morphea]; I87.2 Venous insufficiency (chronic) (peripheral); Z87.891 Personal history of nicotine dependence ==

== ENCOUNTER → 2019-10-04 | Outpatient (CLI) | payer MEDICARE | LOC: M.WC 04:56 | PROVIDERS: ATTEND Emergency Medicine Undersea and Hyperbaric Medicine | DX: E11.622 Type 2 diabetes mellitus with other skin ulcer (principal); L97.811 Non-pressure chronic ulcer of other part of right lower leg limited to breakdown of skin; L97.821 Non-pressure chronic ulcer of other part of left lower leg limited to breakdown of skin; L94.0 Localized scleroderma [morphea]; I87.2 Venous insufficiency (chronic) (peripheral); Z87.891 Personal history of nicotine dependence ==

== ENCOUNTER → 2019-10-07 | Outpatient (CLI) | payer MEDICARE | LOC: M.WC 03:26 | PROVIDERS: ATTEND Emergency Medicine Undersea and Hyperbaric Medicine | DX: E11.622 Type 2 diabetes mellitus with other skin ulcer (principal); L97.811 Non-pressure chronic ulcer of other part of right lower leg limited to breakdown of skin; L97.821 Non-pressure chronic ulcer of other part of left lower leg limited to breakdown of skin; I87.2 Venous insufficiency (chronic) (peripheral); L94.0 Localized scleroderma [morphea]; Z87.891 Personal history of nicotine dependence ==

== ENCOUNTER → 2019-10-11 | Outpatient (CLI) | payer MEDICARE | LOC: M.WC 04:22 | PROVIDERS: ATTEND Emergency Medicine Undersea and Hyperbaric Medicine | DX: E11.622 Type 2 diabetes mellitus with other skin ulcer (principal); L97.811 Non-pressure chronic ulcer of other part of right lower leg limited to breakdown of skin; L97.821 Non-pressure chronic ulcer of other part of left lower leg limited to breakdown of skin; L94.0 Localized scleroderma [morphea]; I87.2 Venous insufficiency (chronic) (peripheral); Z87.891 Personal history of nicotine dependence ==

== ENCOUNTER → 2019-10-18 | Outpatient (CLI) | payer MEDICARE | LOC: M.WC 04:04 | PROVIDERS: ATTEND Emergency Medicine Undersea and Hyperbaric Medicine | DX: E11.622 Type 2 diabetes mellitus with other skin ulcer (principal); L97.811 Non-pressure chronic ulcer of other part of right lower leg limited to breakdown of skin; L97.821 Non-pressure chronic ulcer of other part of left lower leg limited to breakdown of skin; L94.0 Localized scleroderma [morphea]; I87.2 Venous insufficiency (chronic) (peripheral); Z87.891 Personal history of nicotine dependence ==

== ENCOUNTER → 2019-10-21 | Outpatient (CLI) | payer MEDICARE | LOC: M.WC 05:28 | PROVIDERS: ATTEND Emergency Medicine Undersea and Hyperbaric Medicine | DX: E11.622 Type 2 diabetes mellitus with other skin ulcer (principal); L97.811 Non-pressure chronic ulcer of other part of right lower leg limited to breakdown of skin; L97.821 Non-pressure chronic ulcer of other part of left lower leg limited to breakdown of skin; I87.2 Venous insufficiency (chronic) (peripheral); L94.0 Localized scleroderma [morphea]; Z87.891 Personal history of nicotine dependence ==

== ENCOUNTER → 2019-10-25 | Outpatient (CLI) | payer MEDICARE | LOC: M.WC 04:26 | PROVIDERS: ATTEND Emergency Medicine Undersea and Hyperbaric Medicine | DX: E11.622 Type 2 diabetes mellitus with other skin ulcer (principal); L97.811 Non-pressure chronic ulcer of other part of right lower leg limited to breakdown of skin; L94.0 Localized scleroderma [morphea]; I87.2 Venous insufficiency (chronic) (peripheral); Z87.891 Personal history of nicotine dependence ==

== ENCOUNTER → 2019-10-28 | Outpatient (CLI) | payer MEDICARE | LOC: M.WC 04:10 | PROVIDERS: ATTEND Emergency Medicine Undersea and Hyperbaric Medicine | DX: E11.622 Type 2 diabetes mellitus with other skin ulcer (principal); L97.811 Non-pressure chronic ulcer of other part of right lower leg limited to breakdown of skin; L97.821 Non-pressure chronic ulcer of other part of left lower leg limited to breakdown of skin; I87.2 Venous insufficiency (chronic) (peripheral); L94.0 Localized scleroderma [morphea]; Z87.891 Personal history of nicotine dependence ==

== ENCOUNTER → 2019-11-04 | Outpatient (CLI) | payer MEDICARE | LOC: M.WC 05:19 | PROVIDERS: ATTEND Emergency Medicine Undersea and Hyperbaric Medicine | DX: E11.622 Type 2 diabetes mellitus with other skin ulcer (principal); L97.811 Non-pressure chronic ulcer of other part of right lower leg limited to breakdown of skin; L97.821 Non-pressure chronic ulcer of other part of left lower leg limited to breakdown of skin; I87.2 Venous insufficiency (chronic) (peripheral); L94.0 Localized scleroderma [morphea]; Z87.891 Personal history of nicotine dependence ==

== ENCOUNTER → 2019-11-08 | Outpatient (CLI) | payer MEDICARE | LOC: M.WC 04:44 | PROVIDERS: ATTEND Emergency Medicine Undersea and Hyperbaric Medicine | DX: E11.622 Type 2 diabetes mellitus with other skin ulcer (principal); L97.811 Non-pressure chronic ulcer of other part of right lower leg limited to breakdown of skin; L97.821 Non-pressure chronic ulcer of other part of left lower leg limited to breakdown of skin; L94.0 Localized scleroderma [morphea]; I87.2 Venous insufficiency (chronic) (peripheral); Z87.891 Personal history of nicotine dependence ==

== ENCOUNTER → 2019-11-11 | Outpatient (CLI) | payer MEDICARE | LOC: M.WC 03:48 | PROVIDERS: ATTEND Emergency Medicine Undersea and Hyperbaric Medicine | DX: E11.622 Type 2 diabetes mellitus with other skin ulcer (principal); L97.811 Non-pressure chronic ulcer of other part of right lower leg limited to breakdown of skin; L97.821 Non-pressure chronic ulcer of other part of left lower leg limited to breakdown of skin; L94.0 Localized scleroderma [morphea]; I87.2 Venous insufficiency (chronic) (peripheral); Z87.891 Personal history of nicotine dependence ==

== ENCOUNTER → 2019-11-15 | Outpatient (CLI) | payer MEDICARE | LOC: M.WC 02:23 | PROVIDERS: ATTEND Emergency Medicine Undersea and Hyperbaric Medicine | DX: E11.622 Type 2 diabetes mellitus with other skin ulcer (principal); L97.812 Non-pressure chronic ulcer of other part of right lower leg with fat layer exposed; L94.0 Localized scleroderma [morphea]; I87.2 Venous insufficiency (chronic) (peripheral); Z87.891 Personal history of nicotine dependence ==

== ENCOUNTER → 2019-11-18 | Outpatient (CLI) | payer MEDICARE | LOC: M.WC 01:23 | PROVIDERS: ATTEND Emergency Medicine Undersea and Hyperbaric Medicine | DX: L97.811 Non-pressure chronic ulcer of other part of right lower leg limited to breakdown of skin (principal); L97.821 Non-pressure chronic ulcer of other part of left lower leg limited to breakdown of skin; I87.2 Venous insufficiency (chronic) (peripheral); L94.0 Localized scleroderma [morphea]; Z87.891 Personal history of nicotine dependence ==

== ENCOUNTER → 2019-11-22 | Outpatient (CLI) | payer MEDICARE | LOC: M.WC 05:12 | PROVIDERS: ATTEND Emergency Medicine Undersea and Hyperbaric Medicine | DX: E11.622 Type 2 diabetes mellitus with other skin ulcer (principal); L97.811 Non-pressure chronic ulcer of other part of right lower leg limited to breakdown of skin; L97.821 Non-pressure chronic ulcer of other part of left lower leg limited to breakdown of skin; S80.211A Abrasion, right knee, initial encounter; I87.2 Venous insufficiency (chronic) (peripheral); L94.0 Localized scleroderma [morphea]; Z87.891 Personal history of nicotine dependence; X58.XXXA Exposure to other specified factors, initial encounter; Y93.89 Activity, other specified; Y92.89 Other specified places as the place of occurrence of the external cause; Y99.8 Other external cause status ==

== ENCOUNTER → 2019-11-25 | Outpatient (CLI) | payer MEDICARE | LOC: M.WC 01:17 | PROVIDERS: ATTEND Emergency Medicine Undersea and Hyperbaric Medicine | DX: L97.811 Non-pressure chronic ulcer of other part of right lower leg limited to breakdown of skin (principal); S80.211D Abrasion, right knee, subsequent encounter; I87.2 Venous insufficiency (chronic) (peripheral); L94.0 Localized scleroderma [morphea]; Z87.891 Personal history of nicotine dependence; X58.XXXD Exposure to other specified factors, subsequent encounter ==

== ENCOUNTER → 2019-11-29 | Outpatient (CLI) | payer MEDICARE | LOC: M.WC 02:55 | PROVIDERS: ATTEND Emergency Medicine Undersea and Hyperbaric Medicine | DX: E11.622 Type 2 diabetes mellitus with other skin ulcer (principal); L97.812 Non-pressure chronic ulcer of other part of right lower leg with fat layer exposed; S80.211D Abrasion, right knee, subsequent encounter; L94.0 Localized scleroderma [morphea]; I87.2 Venous insufficiency (chronic) (peripheral); Z87.891 Personal history of nicotine dependence; X58.XXXD Exposure to other specified factors, subsequent encounter ==

== ENCOUNTER → 2019-12-02 | Outpatient (CLI) | payer MEDICARE | LOC: M.WC 04:04 | PROVIDERS: ATTEND Emergency Medicine Undersea and Hyperbaric Medicine | DX: L97.811 Non-pressure chronic ulcer of other part of right lower leg limited to breakdown of skin (principal); L97.311 Non-pressure chronic ulcer of right ankle limited to breakdown of skin; L97.821 Non-pressure chronic ulcer of other part of left lower leg limited to breakdown of skin; S80.211D Abrasion, right knee, subsequent encounter; I87.2 Venous insufficiency (chronic) (peripheral); L94.0 Localized scleroderma [morphea]; Z87.891 Personal history of nicotine dependence; X58.XXXD Exposure to other specified factors, subsequent encounter ==

== ENCOUNTER → 2019-12-06 | Outpatient (CLI) | payer MEDICARE | LOC: M.WC 04:02 | PROVIDERS: ATTEND Emergency Medicine Undersea and Hyperbaric Medicine | DX: E11.622 Type 2 diabetes mellitus with other skin ulcer (principal); L97.811 Non-pressure chronic ulcer of other part of right lower leg limited to breakdown of skin; S80.211D Abrasion, right knee, subsequent encounter; L94.0 Localized scleroderma [morphea]; I87.2 Venous insufficiency (chronic) (peripheral); Z87.891 Personal history of nicotine dependence; X58.XXXD Exposure to other specified factors, subsequent encounter ==

== ENCOUNTER → 2019-12-09 | Outpatient (CLI) | payer MEDICARE | LOC: M.WC 03:36 | PROVIDERS: ATTEND Emergency Medicine Undersea and Hyperbaric Medicine | DX: E11.622 Type 2 diabetes mellitus with other skin ulcer (principal); L97.811 Non-pressure chronic ulcer of other part of right lower leg limited to breakdown of skin; L94.0 Localized scleroderma [morphea]; S80.211D Abrasion, right knee, subsequent encounter; I87.2 Venous insufficiency (chronic) (peripheral); Z87.891 Personal history of nicotine dependence; X58.XXXD Exposure to other specified factors, subsequent encounter ==

== ENCOUNTER → 2019-12-13 | Outpatient (CLI) | payer MEDICARE | LOC: M.WC 03:31 | PROVIDERS: ATTEND Emergency Medicine Undersea and Hyperbaric Medicine | DX: E11.622 Type 2 diabetes mellitus with other skin ulcer (principal); L97.812 Non-pressure chronic ulcer of other part of right lower leg with fat layer exposed; L94.0 Localized scleroderma [morphea]; I87.2 Venous insufficiency (chronic) (peripheral); Z87.891 Personal history of nicotine dependence ==

== ENCOUNTER → 2019-12-16 | Outpatient (CLI) | payer MEDICARE | LOC: M.WC 01:47 | PROVIDERS: ATTEND Emergency Medicine Undersea and Hyperbaric Medicine | DX: E11.622 Type 2 diabetes mellitus with other skin ulcer (principal); L97.812 Non-pressure chronic ulcer of other part of right lower leg with fat layer exposed; L94.0 Localized scleroderma [morphea]; I87.2 Venous insufficiency (chronic) (peripheral); Z87.891 Personal history of nicotine dependence ==

== ENCOUNTER → 2019-12-20 | Outpatient (CLI) | payer MEDICARE | LOC: M.WC 03:45 | PROVIDERS: ATTEND Emergency Medicine Undersea and Hyperbaric Medicine | DX: E11.622 Type 2 diabetes mellitus with other skin ulcer (principal); L97.812 Non-pressure chronic ulcer of other part of right lower leg with fat layer exposed; L94.0 Localized scleroderma [morphea]; I87.2 Venous insufficiency (chronic) (peripheral); Z87.891 Personal history of nicotine dependence ==

== ENCOUNTER → 2019-12-23 | Outpatient (CLI) | payer MEDICARE | LOC: M.WC 04:00 | PROVIDERS: ATTEND Emergency Medicine Undersea and Hyperbaric Medicine | DX: E11.622 Type 2 diabetes mellitus with other skin ulcer (principal); L97.812 Non-pressure chronic ulcer of other part of right lower leg with fat layer exposed; L97.821 Non-pressure chronic ulcer of other part of left lower leg limited to breakdown of skin; I87.2 Venous insufficiency (chronic) (peripheral); L94.0 Localized scleroderma [morphea]; Z87.891 Personal history of nicotine dependence ==

== ENCOUNTER → 2019-12-27 | Outpatient (CLI) | payer MEDICARE | LOC: M.WC 03:53 | PROVIDERS: ATTEND Family Medicine | DX: E11.622 Type 2 diabetes mellitus with other skin ulcer (principal); L97.812 Non-pressure chronic ulcer of other part of right lower leg with fat layer exposed; L94.0 Localized scleroderma [morphea]; I87.2 Venous insufficiency (chronic) (peripheral); Z87.891 Personal history of nicotine dependence ==

== ENCOUNTER → 2019-12-30 | Outpatient (CLI) | payer MEDICARE | LOC: M.WC 04:44 | PROVIDERS: ATTEND Family Medicine | DX: L97.812 Non-pressure chronic ulcer of other part of right lower leg with fat layer exposed (principal); L97.821 Non-pressure chronic ulcer of other part of left lower leg limited to breakdown of skin; I87.2 Venous insufficiency (chronic) (peripheral); L94.0 Localized scleroderma [morphea]; L84 Corns and callosities; Z87.891 Personal history of nicotine dependence ==

== ENCOUNTER → 2020-01-03 | Outpatient (CLI) | payer MEDICARE | LOC: M.WC 03:27 | PROVIDERS: ATTEND Emergency Medicine Undersea and Hyperbaric Medicine | DX: E11.622 Type 2 diabetes mellitus with other skin ulcer (principal); L97.812 Non-pressure chronic ulcer of other part of right lower leg with fat layer exposed; L94.0 Localized scleroderma [morphea]; I87.2 Venous insufficiency (chronic) (peripheral); Z87.891 Personal history of nicotine dependence ==

== ENCOUNTER → 2020-01-06 | Outpatient (CLI) | payer MEDICARE | LOC: M.WC 03:03 | PROVIDERS: ATTEND Emergency Medicine Undersea and Hyperbaric Medicine | DX: L97.812 Non-pressure chronic ulcer of other part of right lower leg with fat layer exposed (principal); L97.821 Non-pressure chronic ulcer of other part of left lower leg limited to breakdown of skin; I87.2 Venous insufficiency (chronic) (peripheral); L94.0 Localized scleroderma [morphea] ==

== ENCOUNTER → 2020-01-10 | Outpatient (CLI) | payer MEDICARE | LOC: M.WC 04:58 | PROVIDERS: ATTEND Emergency Medicine Undersea and Hyperbaric Medicine | DX: E11.622 Type 2 diabetes mellitus with other skin ulcer (principal); L97.812 Non-pressure chronic ulcer of other part of right lower leg with fat layer exposed; L97.822 Non-pressure chronic ulcer of other part of left lower leg with fat layer exposed; S81.012A Laceration without foreign body, left knee, initial encounter; S80.812A Abrasion, left lower leg, initial encounter; L94.0 Localized scleroderma [morphea]; I87.2 Venous insufficiency (chronic) (peripheral); Z87.891 Personal history of nicotine dependence; W19.XXXA Unspecified fall, initial encounter; Y93.89 Activity, other specified; Y92.89 Other specified places as the place of occurrence of the external cause; Y99.8 Other external cause status ==

== ENCOUNTER → 2020-01-17 | Outpatient (CLI) | payer MEDICARE | LOC: M.WC 04:58 | PROVIDERS: ATTEND Emergency Medicine Undersea and Hyperbaric Medicine | DX: E11.622 Type 2 diabetes mellitus with other skin ulcer (principal); L97.812 Non-pressure chronic ulcer of other part of right lower leg with fat layer exposed; L97.822 Non-pressure chronic ulcer of other part of left lower leg with fat layer exposed; S80.812A Abrasion, left lower leg, initial encounter; L94.0 Localized scleroderma [morphea]; I87.2 Venous insufficiency (chronic) (peripheral); Z87.891 Personal history of nicotine dependence; X58.XXXA Exposure to other specified factors, initial encounter; Y93.89 Activity, other specified; Y92.89 Other specified places as the place of occurrence of the external cause; Y99.8 Other external cause status ==

== ENCOUNTER → 2020-01-24 | Outpatient (CLI) | payer MEDICARE | LOC: M.WC 05:25 | PROVIDERS: ATTEND Emergency Medicine Undersea and Hyperbaric Medicine | DX: E11.622 Type 2 diabetes mellitus with other skin ulcer (principal); L97.812 Non-pressure chronic ulcer of other part of right lower leg with fat layer exposed; L97.822 Non-pressure chronic ulcer of other part of left lower leg with fat layer exposed; S80.812D Abrasion, left lower leg, subsequent encounter; L94.0 Localized scleroderma [morphea]; I87.2 Venous insufficiency (chronic) (peripheral); X58.XXXD Exposure to other specified factors, subsequent encounter; Z87.891 Personal history of nicotine dependence ==

== ENCOUNTER → 2020-01-31 | Outpatient (CLI) | payer MEDICARE | LOC: M.WC 08:42 | PROVIDERS: ATTEND Emergency Medicine Undersea and Hyperbaric Medicine | DX: E11.622 Type 2 diabetes mellitus with other skin ulcer (principal); L97.812 Non-pressure chronic ulcer of other part of right lower leg with fat layer exposed; L97.822 Non-pressure chronic ulcer of other part of left lower leg with fat layer exposed; L94.0 Localized scleroderma [morphea]; I87.2 Venous insufficiency (chronic) (peripheral); Z87.891 Personal history of nicotine dependence ==

== ENCOUNTER → 2020-02-07 | Outpatient (CLI) | payer MEDICARE | LOC: M.WC 00:35 | PROVIDERS: ATTEND Emergency Medicine Undersea and Hyperbaric Medicine | DX: E11.622 Type 2 diabetes mellitus with other skin ulcer (principal); L97.812 Non-pressure chronic ulcer of other part of right lower leg with fat layer exposed; L97.821 Non-pressure chronic ulcer of other part of left lower leg limited to breakdown of skin; L94.0 Localized scleroderma [morphea]; I87.2 Venous insufficiency (chronic) (peripheral); Z87.891 Personal history of nicotine dependence ==

== ENCOUNTER → 2020-02-14 | Outpatient (CLI) | payer MEDICARE | LOC: M.WC 07:07 | PROVIDERS: ATTEND Emergency Medicine Undersea and Hyperbaric Medicine | DX: E11.622 Type 2 diabetes mellitus with other skin ulcer (principal); L97.812 Non-pressure chronic ulcer of other part of right lower leg with fat layer exposed; L97.821 Non-pressure chronic ulcer of other part of left lower leg limited to breakdown of skin; L94.0 Localized scleroderma [morphea]; I87.2 Venous insufficiency (chronic) (peripheral); Z87.891 Personal history of nicotine dependence ==

== ENCOUNTER → 2020-02-17 | Outpatient (CLI) | payer MEDICARE | LOC: M.WC 07:36 | PROVIDERS: ATTEND Emergency Medicine Undersea and Hyperbaric Medicine | DX: E11.622 Type 2 diabetes mellitus with other skin ulcer (principal); L97.812 Non-pressure chronic ulcer of other part of right lower leg with fat layer exposed; L97.821 Non-pressure chronic ulcer of other part of left lower leg limited to breakdown of skin; I87.2 Venous insufficiency (chronic) (peripheral); L94.0 Localized scleroderma [morphea]; Z87.891 Personal history of nicotine dependence ==

== ENCOUNTER → 2020-02-21 | Outpatient (CLI) | payer MEDICARE | LOC: M.WC 08:33 | PROVIDERS: ATTEND Emergency Medicine Undersea and Hyperbaric Medicine | DX: E11.622 Type 2 diabetes mellitus with other skin ulcer (principal); L97.812 Non-pressure chronic ulcer of other part of right lower leg with fat layer exposed; L97.821 Non-pressure chronic ulcer of other part of left lower leg limited to breakdown of skin; L94.0 Localized scleroderma [morphea]; I87.2 Venous insufficiency (chronic) (peripheral); Z87.891 Personal history of nicotine dependence ==

== ENCOUNTER → 2020-02-24 | Outpatient (CLI) | payer MEDICARE | LOC: M.WC 11:00 | PROVIDERS: ATTEND Emergency Medicine Undersea and Hyperbaric Medicine | DX: E11.622 Type 2 diabetes mellitus with other skin ulcer (principal); L97.812 Non-pressure chronic ulcer of other part of right lower leg with fat layer exposed; L97.821 Non-pressure chronic ulcer of other part of left lower leg limited to breakdown of skin; L94.0 Localized scleroderma [morphea]; I87.2 Venous insufficiency (chronic) (peripheral); Z87.891 Personal history of nicotine dependence ==

== ENCOUNTER → 2020-02-28 | Outpatient (CLI) | payer MEDICARE | LOC: M.WC 08:08 | PROVIDERS: ATTEND Emergency Medicine Undersea and Hyperbaric Medicine | DX: E11.622 Type 2 diabetes mellitus with other skin ulcer (principal); L97.812 Non-pressure chronic ulcer of other part of right lower leg with fat layer exposed; L97.821 Non-pressure chronic ulcer of other part of left lower leg limited to breakdown of skin; L94.0 Localized scleroderma [morphea]; I87.2 Venous insufficiency (chronic) (peripheral); Z87.891 Personal history of nicotine dependence ==

== ENCOUNTER → 2020-03-02 | Outpatient (CLI) | payer MEDICARE | LOC: M.WC 09:12 | PROVIDERS: ATTEND Emergency Medicine Undersea and Hyperbaric Medicine | DX: E11.622 Type 2 diabetes mellitus with other skin ulcer (principal); L97.811 Non-pressure chronic ulcer of other part of right lower leg limited to breakdown of skin; L97.821 Non-pressure chronic ulcer of other part of left lower leg limited to breakdown of skin; L94.0 Localized scleroderma [morphea]; I87.2 Venous insufficiency (chronic) (peripheral); Z87.891 Personal history of nicotine dependence ==

== ENCOUNTER → 2020-03-06 | Outpatient (CLI) | payer MEDICARE | LOC: M.WC 08:50 | PROVIDERS: ATTEND Emergency Medicine Undersea and Hyperbaric Medicine | DX: E11.622 Type 2 diabetes mellitus with other skin ulcer (principal); L97.812 Non-pressure chronic ulcer of other part of right lower leg with fat layer exposed; L97.821 Non-pressure chronic ulcer of other part of left lower leg limited to breakdown of skin; L94.0 Localized scleroderma [morphea]; I87.2 Venous insufficiency (chronic) (peripheral); Z87.891 Personal history of nicotine dependence ==

== ENCOUNTER → 2020-03-13 | Outpatient (CLI) | payer MEDICARE | LOC: M.WC 09:59 | PROVIDERS: ATTEND Emergency Medicine Undersea and Hyperbaric Medicine | DX: E11.622 Type 2 diabetes mellitus with other skin ulcer (principal); L97.812 Non-pressure chronic ulcer of other part of right lower leg with fat layer exposed; L97.821 Non-pressure chronic ulcer of other part of left lower leg limited to breakdown of skin; L94.0 Localized scleroderma [morphea]; I87.2 Venous insufficiency (chronic) (peripheral); Z87.891 Personal history of nicotine dependence ==

== ENCOUNTER → 2020-03-20 | Outpatient (CLI) | payer MEDICARE | LOC: M.WC 09:30 | PROVIDERS: ATTEND Emergency Medicine Undersea and Hyperbaric Medicine | DX: L97.812 Non-pressure chronic ulcer of other part of right lower leg with fat layer exposed (principal); I87.2 Venous insufficiency (chronic) (peripheral); L94.0 Localized scleroderma [morphea]; Z87.891 Personal history of nicotine dependence ==

== ENCOUNTER → 2020-03-27 | Outpatient (CLI) | payer MEDICARE | LOC: M.WC 09:55 | PROVIDERS: ATTEND Emergency Medicine Undersea and Hyperbaric Medicine | DX: E11.622 Type 2 diabetes mellitus with other skin ulcer (principal); L97.812 Non-pressure chronic ulcer of other part of right lower leg with fat layer exposed; L97.821 Non-pressure chronic ulcer of other part of left lower leg limited to breakdown of skin; L94.0 Localized scleroderma [morphea]; I87.2 Venous insufficiency (chronic) (peripheral); Z87.891 Personal history of nicotine dependence ==

== ENCOUNTER → 2020-04-03 | Outpatient (CLI) | payer MEDICARE | LOC: M.WC 10:00 | PROVIDERS: ATTEND Emergency Medicine Undersea and Hyperbaric Medicine | DX: E11.622 Type 2 diabetes mellitus with other skin ulcer (principal); L97.812 Non-pressure chronic ulcer of other part of right lower leg with fat layer exposed; L97.821 Non-pressure chronic ulcer of other part of left lower leg limited to breakdown of skin; L94.0 Localized scleroderma [morphea]; I87.2 Venous insufficiency (chronic) (peripheral); Z87.891 Personal history of nicotine dependence ==

== ENCOUNTER → 2020-05-01 | Outpatient (CLI) | payer MEDICARE | LOC: M.WC 09:10 | PROVIDERS: ATTEND Emergency Medicine Undersea and Hyperbaric Medicine | DX: E11.622 Type 2 diabetes mellitus with other skin ulcer (principal); L97.812 Non-pressure chronic ulcer of other part of right lower leg with fat layer exposed; L97.821 Non-pressure chronic ulcer of other part of left lower leg limited to breakdown of skin; L94.0 Localized scleroderma [morphea]; I87.2 Venous insufficiency (chronic) (peripheral); Z87.891 Personal history of nicotine dependence ==

== ENCOUNTER → 2020-05-08 | Outpatient (CLI) | payer MEDICARE | LOC: M.WC 09:38 | PROVIDERS: ATTEND Emergency Medicine Undersea and Hyperbaric Medicine | DX: E11.622 Type 2 diabetes mellitus with other skin ulcer (principal); L97.812 Non-pressure chronic ulcer of other part of right lower leg with fat layer exposed; L97.821 Non-pressure chronic ulcer of other part of left lower leg limited to breakdown of skin; S81.801D Unspecified open wound, right lower leg, subsequent encounter; L94.0 Localized scleroderma [morphea]; L84 Corns and callosities; I87.2 Venous insufficiency (chronic) (peripheral); Z87.891 Personal history of nicotine dependence; X58.XXXD Exposure to other specified factors, subsequent encounter ==

== ENCOUNTER → 2020-05-15 | Outpatient (CLI) | payer MEDICARE | LOC: M.WC 09:36 | PROVIDERS: ATTEND Emergency Medicine Undersea and Hyperbaric Medicine | DX: E11.622 Type 2 diabetes mellitus with other skin ulcer (principal); L97.822 Non-pressure chronic ulcer of other part of left lower leg with fat layer exposed; L97.812 Non-pressure chronic ulcer of other part of right lower leg with fat layer exposed; I87.2 Venous insufficiency (chronic) (peripheral); L94.0 Localized scleroderma [morphea]; L84 Corns and callosities; Z87.891 Personal history of nicotine dependence ==

== ENCOUNTER → 2020-05-22 | Outpatient (CLI) | payer MEDICARE | LOC: M.WC 09:57 | PROVIDERS: ATTEND Emergency Medicine Undersea and Hyperbaric Medicine | DX: E11.622 Type 2 diabetes mellitus with other skin ulcer (principal); L97.812 Non-pressure chronic ulcer of other part of right lower leg with fat layer exposed; L97.822 Non-pressure chronic ulcer of other part of left lower leg with fat layer exposed; S81.801D Unspecified open wound, right lower leg, subsequent encounter; L94.0 Localized scleroderma [morphea]; L84 Corns and callosities; I87.2 Venous insufficiency (chronic) (peripheral); Z87.891 Personal history of nicotine dependence; X58.XXXD Exposure to other specified factors, subsequent encounter ==

== ENCOUNTER → 2020-06-01 | Outpatient (CLI) | payer MEDICARE | LOC: M.WC 05-29 10:00 | PROVIDERS: ATTEND Emergency Medicine Undersea and Hyperbaric Medicine | DX: E11.622 Type 2 diabetes mellitus with other skin ulcer (principal); L97.811 Non-pressure chronic ulcer of other part of right lower leg limited to breakdown of skin; L97.821 Non-pressure chronic ulcer of other part of left lower leg limited to breakdown of skin; S81.801D Unspecified open wound, right lower leg, subsequent encounter; I87.2 Venous insufficiency (chronic) (peripheral); L94.0 Localized scleroderma [morphea]; Z87.891 Personal history of nicotine dependence; X58.XXXD Exposure to other specified factors, subsequent encounter ==

== ENCOUNTER → 2020-06-05 | Outpatient (CLI) | payer MEDICARE | LOC: M.WC 09:42 | PROVIDERS: ATTEND Emergency Medicine Undersea and Hyperbaric Medicine | DX: E11.622 Type 2 diabetes mellitus with other skin ulcer (principal); L97.812 Non-pressure chronic ulcer of other part of right lower leg with fat layer exposed; L97.822 Non-pressure chronic ulcer of other part of left lower leg with fat layer exposed; L94.0 Localized scleroderma [morphea]; L84 Corns and callosities; I87.2 Venous insufficiency (chronic) (peripheral); Z87.891 Personal history of nicotine dependence ==

== ENCOUNTER → 2020-06-12 | Outpatient (CLI) | payer MEDICARE | LOC: M.WC 09:19 | PROVIDERS: ATTEND Emergency Medicine Undersea and Hyperbaric Medicine | DX: E11.622 Type 2 diabetes mellitus with other skin ulcer (principal); L97.812 Non-pressure chronic ulcer of other part of right lower leg with fat layer exposed; L97.822 Non-pressure chronic ulcer of other part of left lower leg with fat layer exposed; L84 Corns and callosities; L94.0 Localized scleroderma [morphea]; I87.2 Venous insufficiency (chronic) (peripheral); Z87.891 Personal history of nicotine dependence ==

== ENCOUNTER → 2020-06-19 | Outpatient (CLI) | payer MEDICARE | LOC: M.WC 10:19 | PROVIDERS: ATTEND Emergency Medicine Undersea and Hyperbaric Medicine | DX: E11.622 Type 2 diabetes mellitus with other skin ulcer (principal); L97.812 Non-pressure chronic ulcer of other part of right lower leg with fat layer exposed; L97.821 Non-pressure chronic ulcer of other part of left lower leg limited to breakdown of skin; L84 Corns and callosities; L94.0 Localized scleroderma [morphea]; I87.2 Venous insufficiency (chronic) (peripheral); Z87.891 Personal history of nicotine dependence ==

== ENCOUNTER → 2020-06-26 | Outpatient (CLI) | payer MEDICARE | LOC: M.WC 09:47 | PROVIDERS: ATTEND Emergency Medicine Undersea and Hyperbaric Medicine | DX: E11.622 Type 2 diabetes mellitus with other skin ulcer (principal); L97.812 Non-pressure chronic ulcer of other part of right lower leg with fat layer exposed; L97.821 Non-pressure chronic ulcer of other part of left lower leg limited to breakdown of skin; L84 Corns and callosities; L94.0 Localized scleroderma [morphea]; I87.2 Venous insufficiency (chronic) (peripheral); Z87.891 Personal history of nicotine dependence ==

== ENCOUNTER → 2020-07-03 | Outpatient (CLI) | payer MEDICARE | LOC: M.WC 10:00 | PROVIDERS: ATTEND Emergency Medicine Undersea and Hyperbaric Medicine | DX: E11.622 Type 2 diabetes mellitus with other skin ulcer (principal); L97.812 Non-pressure chronic ulcer of other part of right lower leg with fat layer exposed; L97.821 Non-pressure chronic ulcer of other part of left lower leg limited to breakdown of skin; L84 Corns and callosities; L94.0 Localized scleroderma [morphea]; I87.2 Venous insufficiency (chronic) (peripheral); Z87.891 Personal history of nicotine dependence ==

== ENCOUNTER → 2020-07-10 | Outpatient (CLI) | payer MEDICARE | LOC: M.WC 09:20 | PROVIDERS: ATTEND Emergency Medicine Undersea and Hyperbaric Medicine | DX: E11.622 Type 2 diabetes mellitus with other skin ulcer (principal); L97.812 Non-pressure chronic ulcer of other part of right lower leg with fat layer exposed; L97.821 Non-pressure chronic ulcer of other part of left lower leg limited to breakdown of skin; L84 Corns and callosities; L94.0 Localized scleroderma [morphea]; I87.2 Venous insufficiency (chronic) (peripheral); Z87.891 Personal history of nicotine dependence ==

== ENCOUNTER → 2020-07-17 | Outpatient (CLI) | payer MEDICARE | LOC: M.WC 09:49 | PROVIDERS: ATTEND Emergency Medicine Undersea and Hyperbaric Medicine | DX: E11.622 Type 2 diabetes mellitus with other skin ulcer (principal); L97.812 Non-pressure chronic ulcer of other part of right lower leg with fat layer exposed; L97.821 Non-pressure chronic ulcer of other part of left lower leg limited to breakdown of skin; L94.0 Localized scleroderma [morphea]; L84 Corns and callosities; I87.2 Venous insufficiency (chronic) (peripheral); Z87.891 Personal history of nicotine dependence ==

== ENCOUNTER → 2020-07-24 | Outpatient (CLI) | payer MEDICARE | LOC: M.WC 09:47 | PROVIDERS: ATTEND Emergency Medicine Undersea and Hyperbaric Medicine | DX: E11.622 Type 2 diabetes mellitus with other skin ulcer (principal); L97.812 Non-pressure chronic ulcer of other part of right lower leg with fat layer exposed; L97.821 Non-pressure chronic ulcer of other part of left lower leg limited to breakdown of skin; L94.0 Localized scleroderma [morphea]; L84 Corns and callosities; I87.2 Venous insufficiency (chronic) (peripheral); Z87.891 Personal history of nicotine dependence ==

== ENCOUNTER → 2020-07-26 | Outpatient (CLI) | payer MEDICARE | LOC: M.WC 09:56 | PROVIDERS: ATTEND Emergency Medicine Undersea and Hyperbaric Medicine | DX: E11.622 Type 2 diabetes mellitus with other skin ulcer (principal); L97.812 Non-pressure chronic ulcer of other part of right lower leg with fat layer exposed; L97.821 Non-pressure chronic ulcer of other part of left lower leg limited to breakdown of skin; L94.0 Localized scleroderma [morphea]; L84 Corns and callosities; I87.2 Venous insufficiency (chronic) (peripheral); Z87.891 Personal history of nicotine dependence ==

== ENCOUNTER → 2020-07-31 | Outpatient (CLI) | payer MEDICARE | LOC: M.WC 09:50 | PROVIDERS: ATTEND Emergency Medicine Undersea and Hyperbaric Medicine | DX: E11.622 Type 2 diabetes mellitus with other skin ulcer (principal); L97.812 Non-pressure chronic ulcer of other part of right lower leg with fat layer exposed; L94.0 Localized scleroderma [morphea]; L84 Corns and callosities; I87.2 Venous insufficiency (chronic) (peripheral); Z87.891 Personal history of nicotine dependence ==

== ENCOUNTER → 2020-08-07 | Outpatient (CLI) | payer MEDICARE | LOC: M.WC 09:18 | PROVIDERS: ATTEND Emergency Medicine Undersea and Hyperbaric Medicine | DX: E11.622 Type 2 diabetes mellitus with other skin ulcer (principal); L97.812 Non-pressure chronic ulcer of other part of right lower leg with fat layer exposed; L97.312 Non-pressure chronic ulcer of right ankle with fat layer exposed; L94.0 Localized scleroderma [morphea]; L84 Corns and callosities; I87.2 Venous insufficiency (chronic) (peripheral); Z87.891 Personal history of nicotine dependence ==

== ENCOUNTER → 2020-08-14 | Outpatient (CLI) | payer MEDICARE | LOC: M.WC 09:51 | PROVIDERS: ATTEND Emergency Medicine Undersea and Hyperbaric Medicine | DX: E11.622 Type 2 diabetes mellitus with other skin ulcer (principal); L97.812 Non-pressure chronic ulcer of other part of right lower leg with fat layer exposed; L97.312 Non-pressure chronic ulcer of right ankle with fat layer exposed; L94.0 Localized scleroderma [morphea]; L84 Corns and callosities; I87.2 Venous insufficiency (chronic) (peripheral); Z87.891 Personal history of nicotine dependence ==

== ENCOUNTER → 2020-08-21 | Outpatient (CLI) | payer MEDICARE | LOC: M.WC 09:42 | PROVIDERS: ATTEND Emergency Medicine Undersea and Hyperbaric Medicine | DX: E11.622 Type 2 diabetes mellitus with other skin ulcer (principal); L97.812 Non-pressure chronic ulcer of other part of right lower leg with fat layer exposed; L97.312 Non-pressure chronic ulcer of right ankle with fat layer exposed; L94.0 Localized scleroderma [morphea]; L84 Corns and callosities; I87.2 Venous insufficiency (chronic) (peripheral); Z87.891 Personal history of nicotine dependence ==

== ENCOUNTER → 2020-08-28 | Outpatient (CLI) | payer MEDICARE | LOC: M.WC 09:05 | PROVIDERS: ATTEND Emergency Medicine Undersea and Hyperbaric Medicine | DX: E11.622 Type 2 diabetes mellitus with other skin ulcer (principal); L97.812 Non-pressure chronic ulcer of other part of right lower leg with fat layer exposed; L97.312 Non-pressure chronic ulcer of right ankle with fat layer exposed; L94.0 Localized scleroderma [morphea]; L84 Corns and callosities; I87.2 Venous insufficiency (chronic) (peripheral); Z87.891 Personal history of nicotine dependence ==

== ENCOUNTER → 2020-09-04 | Outpatient (CLI) | payer MEDICARE | LOC: M.WC 08:58 | PROVIDERS: ATTEND Emergency Medicine Undersea and Hyperbaric Medicine | DX: E11.622 Type 2 diabetes mellitus with other skin ulcer (principal); L97.812 Non-pressure chronic ulcer of other part of right lower leg with fat layer exposed; L97.312 Non-pressure chronic ulcer of right ankle with fat layer exposed; L94.0 Localized scleroderma [morphea]; L84 Corns and callosities; I87.2 Venous insufficiency (chronic) (peripheral); Z87.891 Personal history of nicotine dependence ==

== ENCOUNTER → 2020-09-11 | Outpatient (CLI) | payer MEDICARE | LOC: M.WC 08:54 | PROVIDERS: ATTEND Emergency Medicine Undersea and Hyperbaric Medicine | DX: E11.622 Type 2 diabetes mellitus with other skin ulcer (principal); L97.812 Non-pressure chronic ulcer of other part of right lower leg with fat layer exposed; L97.312 Non-pressure chronic ulcer of right ankle with fat layer exposed; L94.0 Localized scleroderma [morphea]; L84 Corns and callosities; I87.2 Venous insufficiency (chronic) (peripheral); Z87.891 Personal history of nicotine dependence ==

== ENCOUNTER → 2020-09-18 | Outpatient (CLI) | payer MEDICARE | LOC: M.WC 09:44 | PROVIDERS: ATTEND Emergency Medicine Undersea and Hyperbaric Medicine | DX: E11.622 Type 2 diabetes mellitus with other skin ulcer (principal); L97.812 Non-pressure chronic ulcer of other part of right lower leg with fat layer exposed; L97.312 Non-pressure chronic ulcer of right ankle with fat layer exposed; L94.0 Localized scleroderma [morphea]; L84 Corns and callosities; I87.2 Venous insufficiency (chronic) (peripheral); Z87.891 Personal history of nicotine dependence ==

== ENCOUNTER → 2020-09-25 | Outpatient (CLI) | payer MEDICARE | LOC: M.WC 10:34 | PROVIDERS: ATTEND Emergency Medicine Undersea and Hyperbaric Medicine | DX: E11.622 Type 2 diabetes mellitus with other skin ulcer (principal); L97.812 Non-pressure chronic ulcer of other part of right lower leg with fat layer exposed; L97.312 Non-pressure chronic ulcer of right ankle with fat layer exposed; L94.0 Localized scleroderma [morphea]; L84 Corns and callosities; I87.2 Venous insufficiency (chronic) (peripheral); Z87.891 Personal history of nicotine dependence ==

== ENCOUNTER → 2020-10-02 | Outpatient (CLI) | payer MEDICARE | LOC: M.WC 08:09 | PROVIDERS: ATTEND Emergency Medicine Undersea and Hyperbaric Medicine | DX: E11.622 Type 2 diabetes mellitus with other skin ulcer (principal); L97.812 Non-pressure chronic ulcer of other part of right lower leg with fat layer exposed; L97.312 Non-pressure chronic ulcer of right ankle with fat layer exposed; L97.822 Non-pressure chronic ulcer of other part of left lower leg with fat layer exposed; L03.116 Cellulitis of left lower limb; L94.0 Localized scleroderma [morphea]; L84 Corns and callosities; I87.2 Venous insufficiency (chronic) (peripheral); Z87.891 Personal history of nicotine dependence ==

== ENCOUNTER → 2020-10-09 | Outpatient (CLI) | payer MEDICARE | LOC: M.WC 09:03 | PROVIDERS: ATTEND Emergency Medicine Undersea and Hyperbaric Medicine | DX: E11.622 Type 2 diabetes mellitus with other skin ulcer (principal); L97.812 Non-pressure chronic ulcer of other part of right lower leg with fat layer exposed; L97.312 Non-pressure chronic ulcer of right ankle with fat layer exposed; L97.822 Non-pressure chronic ulcer of other part of left lower leg with fat layer exposed; L03.116 Cellulitis of left lower limb; L94.0 Localized scleroderma [morphea]; L84 Corns and callosities; I87.2 Venous insufficiency (chronic) (peripheral); Z87.891 Personal history of nicotine dependence ==

== ENCOUNTER → 2020-10-16 | Outpatient (CLI) | payer MEDICARE | LOC: M.WC 08:43 | PROVIDERS: ATTEND Emergency Medicine Undersea and Hyperbaric Medicine | DX: L97.812 Non-pressure chronic ulcer of other part of right lower leg with fat layer exposed (principal); L97.822 Non-pressure chronic ulcer of other part of left lower leg with fat layer exposed; L97.312 Non-pressure chronic ulcer of right ankle with fat layer exposed; I87.2 Venous insufficiency (chronic) (peripheral); L03.116 Cellulitis of left lower limb; L94.0 Localized scleroderma [morphea]; Z87.891 Personal history of nicotine dependence; Z79.899 Other long term (current) drug therapy ==

== ENCOUNTER → 2020-10-23 | Outpatient (CLI) | payer MEDICARE | LOC: M.WC 09:47 | PROVIDERS: ATTEND Emergency Medicine Undersea and Hyperbaric Medicine | DX: L97.812 Non-pressure chronic ulcer of other part of right lower leg with fat layer exposed (principal); L97.312 Non-pressure chronic ulcer of right ankle with fat layer exposed; L97.822 Non-pressure chronic ulcer of other part of left lower leg with fat layer exposed; I87.2 Venous insufficiency (chronic) (peripheral); L94.0 Localized scleroderma [morphea]; L03.116 Cellulitis of left lower limb; Z87.891 Personal history of nicotine dependence; Z79.899 Other long term (current) drug therapy ==

== ENCOUNTER → 2020-10-30 | Outpatient (CLI) | payer MEDICARE | LOC: M.WC 09:57 | PROVIDERS: ATTEND Emergency Medicine Undersea and Hyperbaric Medicine | DX: L97.812 Non-pressure chronic ulcer of other part of right lower leg with fat layer exposed (principal); L97.312 Non-pressure chronic ulcer of right ankle with fat layer exposed; L97.822 Non-pressure chronic ulcer of other part of left lower leg with fat layer exposed; L94.0 Localized scleroderma [morphea]; I87.2 Venous insufficiency (chronic) (peripheral); L03.116 Cellulitis of left lower limb; Z87.891 Personal history of nicotine dependence ==

== ENCOUNTER → 2020-11-06 | Outpatient (CLI) | payer MEDICARE | LOC: M.WC 09:42 | PROVIDERS: ATTEND Emergency Medicine Undersea and Hyperbaric Medicine | DX: E11.622 Type 2 diabetes mellitus with other skin ulcer (principal); L97.812 Non-pressure chronic ulcer of other part of right lower leg with fat layer exposed; L97.312 Non-pressure chronic ulcer of right ankle with fat layer exposed; L97.822 Non-pressure chronic ulcer of other part of left lower leg with fat layer exposed; L03.116 Cellulitis of left lower limb; L94.0 Localized scleroderma [morphea]; I87.2 Venous insufficiency (chronic) (peripheral); Z87.891 Personal history of nicotine dependence ==

== ENCOUNTER → 2020-11-13 | Outpatient (CLI) | payer MEDICARE | LOC: M.WC 09:27 | PROVIDERS: ATTEND Emergency Medicine Undersea and Hyperbaric Medicine | DX: L97.812 Non-pressure chronic ulcer of other part of right lower leg with fat layer exposed (principal); L97.312 Non-pressure chronic ulcer of right ankle with fat layer exposed; L94.0 Localized scleroderma [morphea]; I87.2 Venous insufficiency (chronic) (peripheral); L03.116 Cellulitis of left lower limb; Z87.891 Personal history of nicotine dependence ==

== ENCOUNTER → 2020-11-20 | Outpatient (CLI) | payer MEDICARE | LOC: M.WC 09:39 | PROVIDERS: ATTEND Emergency Medicine Undersea and Hyperbaric Medicine | DX: L97.812 Non-pressure chronic ulcer of other part of right lower leg with fat layer exposed (principal); L97.312 Non-pressure chronic ulcer of right ankle with fat layer exposed; L94.0 Localized scleroderma [morphea]; I87.2 Venous insufficiency (chronic) (peripheral); L03.116 Cellulitis of left lower limb; Z87.891 Personal history of nicotine dependence ==

== ENCOUNTER → 2020-11-27 | Outpatient (CLI) | payer MEDICARE | LOC: M.WC 09:28 | PROVIDERS: ATTEND Emergency Medicine Undersea and Hyperbaric Medicine | DX: E11.622 Type 2 diabetes mellitus with other skin ulcer (principal); L97.812 Non-pressure chronic ulcer of other part of right lower leg with fat layer exposed; L97.312 Non-pressure chronic ulcer of right ankle with fat layer exposed; L03.116 Cellulitis of left lower limb; L94.0 Localized scleroderma [morphea]; I87.2 Venous insufficiency (chronic) (peripheral); Z87.891 Personal history of nicotine dependence ==

== ENCOUNTER 2020-12-01 21:02 | Emergency (ER) | payer MEDICARE ==
[~2020-12-01] VITALS: Ht 170.2 cm; Wt 95.3 kg
[2020-12-01] MEDS ORDERED: TRAMADOL 50 MG50 MG PO (21:32)
[2020-12-01 22:57] LABS: URINE BILIRUBIN NEGATIVE (Negative); URINE BLOOD 1+ (Negative); URINE CLARITY CLEAR; URINE COLOR YELLOW; URINE GLUCOSE-RANDOM NEGATIVE (Negative); URINE KETONES NEGATIVE (Negative); URINE LEUKOCYTES-REFLEX NEGATIVE (Negative); URINE NITRITE-REFLEX NEGATIVE (Negative); URINE PROTEIN 2+ (Negative); URINE UROBILINOGEN 0.2 E.U./dl (0.2-1.0)
[2020-12-01 23:00] LABS: ABSOLUTE BASOPHILS 0.1 thou/uL (0.0-0.2); ABSOLUTE EOSINOPHILS 0.2 thou/uL (0.0-0.7); ABSOLUTE LYMPHOCYTES 0.6 thou/uL (0.8-5.3); ABSOLUTE MONOCYTES 0.4 thou/uL (0.0-1.2); ABSOLUTE NEUTROPHILS 6.2 thou/uL (1.6-8.1); BASOPHILS 0.9 %; EOSINOPHILS 2.6 %; HEMATOCRIT 46.4 % (42.0-52.0); HEMOGLOBIN 15.2 gm/dL (14.0-18.0); LYMPHOCYTES 7.8 %; MCH 31.6 pg (26.0-34.0); MCHC 32.7 g/dL (28.0-37.0); MCV 96.7 fL (80.0-100.0); MONOCYTES 5.5 %; MPV 9.6 fl. (7.2-11.1); NUCLEATED RBCS 0 /100WBC; PLATELET COUNT* 159 thou/uL (150-400); POLYS 83.2 %; RBC 4.79 mil/uL (4.50-6.00); WBC 7.5 thou/uL (4.0-11.0)
[2020-12-01 23:03] LABS: MUCUS 4-6 Moderate strn/LPF (None Seen); SQUAMOUS 0-3 Few /LPF (0-3); URINE RBC 3-10 Few /HPF (0-2); WBC CLUMPS Few (None Seen)
[2020-12-01 23:04] LABS: CELLULAR CASTS 0-3 Few /LPF (None Seen); COARSE GRANULAR CASTS 0-3 Few /LPF (None Seen); CRYSTALS None Seen /LPF (None Seen); FINE GRANULAR CASTS 0-3 Few /LPF (None Seen); HYALINE CASTS 0-3 Few /LPF (None Seen)
[2020-12-01 23:09] LABS: CALCIUM 9.7 mg/dL (8.5-10.1); CREATININE 2.5 mg/dL (0.6-1.3)
[2020-12-01 23:14] LABS: ALBUMIN 4.1 g/dL (3.4-5.0); TOTAL BILIRUBIN 0.9 mg/dL (<0.1-1.0); TOTAL PROTEIN 8.2 g/dL (6.4-8.2)
[2020-12-02] MEDS ORDERED: PHENERGAN 25 MG25 M1 PO (02:34)
[2020-12-02] MEDS ORDERED: HYDROCODON-ACE1 EAC7 PO (02:34)
[2020-12-02] MEDS ORDERED: MACROBID 100 M100 M1 PO (02:34)
[2020-12-02 03:26] VITALS: BP 150/75
--- NOTE | 2020-12-02 15:26 | EKG ---
[place] [address] ELECTROCARDIOGRAM REPORT Name: BROWN HUA Room: [facility]#: [id number] Admission: 12/01/20 Attend Phys: Discharge: 12/02/20 Date of : 52 Date of Service: 12/02/20 0225 Report #: [id number] THIS REPORT FOR: //name// [facility] ED Test Date: 2020-12-02 Test Time: 02:25:45 Pat Name: BROWN HUA Department: Room: Gender: Demo Coordinator: [place] : 1950 Requested By: Tammy Cruz Order Number: [id number] MD: Reji Andujar Measurements Intervals Arjay Rate: 71 P: CO: QRS: 91 QRSD: 112 T: 36 QT: 473 QTc: 515 Interpretive Statements Atrial fibrillation Borderline intraventricular conduction delay Borderline low voltage, extremity leads Nonspecific T abnormalities, lateral leads Prolonged QT interval Compared to ECG 08/29/2018 12:57:44 Prolonged QT interval now present Incomplete right bundle-branch block no longer present T-wave abnormality still present Electronically Signed On 12-02-2020 15:26:42 CDT by Reji Andujar [email or web address] <ELECTRONICALLY SIGNED> By: Reji Andujar MD, FACC 12/02/20 1526 4 4 Reji Andujar MD, FAC /EPI
== END 2020-12-02 03:28 | disposition home or self-care (01) ==
LOC: M.ERS 21:02
PROVIDERS: Nurse Practitioner Family; Personal Emergency Response Attendant
DX: I13.0 Hypertensive heart and chronic kidney disease with heart failure and stage 1 through stage 4 chronic kidney disease, or unspecified chronic kidney disease (principal); I50.30 Unspecified diastolic (congestive) heart failure; N18.4 Chronic kidney disease, stage 4 (severe); N39.0 Urinary tract infection, site not specified; I48.91 Unspecified atrial fibrillation; G62.9 Polyneuropathy, unspecified; Z79.899 Other long term (current) drug therapy; Z79.1 Long term (current) use of non-steroidal anti-inflammatories (NSAID); Z79.891 Long term (current) use of opiate analgesic; Z88.0 Allergy status to penicillin; Z88.8 Allergy status to other drugs, medicaments and biological substances; Z91.09 Other allergy status, other than to drugs and biological substances

== ENCOUNTER → 2020-12-06 | Outpatient (CLI) | payer MEDICARE ==
[~2020-12-06] MED LIST changes: +HYDROCODON-ACE1 EAC7 PO; +MACROBID 100 M100 M1 PO; +PHENERGAN 25 MG25 M1 PO; +TRAMADOL 50 MG50 MG PO
== END ==
LOC: M.WC 13:15
PROVIDERS: ATTEND Family Medicine
DX: E11.622 Type 2 diabetes mellitus with other skin ulcer (principal); L97.812 Non-pressure chronic ulcer of other part of right lower leg with fat layer exposed; L97.312 Non-pressure chronic ulcer of right ankle with fat layer exposed; L03.116 Cellulitis of left lower limb; L94.0 Localized scleroderma [morphea]; I87.2 Venous insufficiency (chronic) (peripheral); Z87.891 Personal history of nicotine dependence

== ENCOUNTER → 2020-12-11 | Outpatient (CLI) | payer MEDICARE | LOC: M.WC 09:17 | PROVIDERS: ATTEND Family Medicine | DX: E11.622 Type 2 diabetes mellitus with other skin ulcer (principal); L97.812 Non-pressure chronic ulcer of other part of right lower leg with fat layer exposed; L97.312 Non-pressure chronic ulcer of right ankle with fat layer exposed; L97.822 Non-pressure chronic ulcer of other part of left lower leg with fat layer exposed; L03.116 Cellulitis of left lower limb; L94.0 Localized scleroderma [morphea]; I87.2 Venous insufficiency (chronic) (peripheral); Z87.891 Personal history of nicotine dependence ==

== ENCOUNTER → 2020-12-18 | Outpatient (CLI) | payer MEDICARE | LOC: M.WC 09:25 | PROVIDERS: ATTEND Family Medicine | DX: E11.622 Type 2 diabetes mellitus with other skin ulcer (principal); L97.812 Non-pressure chronic ulcer of other part of right lower leg with fat layer exposed; L97.312 Non-pressure chronic ulcer of right ankle with fat layer exposed; L97.822 Non-pressure chronic ulcer of other part of left lower leg with fat layer exposed; L03.116 Cellulitis of left lower limb; L94.0 Localized scleroderma [morphea]; I87.2 Venous insufficiency (chronic) (peripheral); Z87.891 Personal history of nicotine dependence ==

== ENCOUNTER → 2020-12-25 | Outpatient (CLI) | payer MEDICARE | LOC: M.WC 09:36 | PROVIDERS: ATTEND Emergency Medicine Undersea and Hyperbaric Medicine | DX: E11.622 Type 2 diabetes mellitus with other skin ulcer (principal); L97.812 Non-pressure chronic ulcer of other part of right lower leg with fat layer exposed; L97.312 Non-pressure chronic ulcer of right ankle with fat layer exposed; L97.822 Non-pressure chronic ulcer of other part of left lower leg with fat layer exposed; L03.116 Cellulitis of left lower limb; L94.0 Localized scleroderma [morphea]; I87.2 Venous insufficiency (chronic) (peripheral); Z87.891 Personal history of nicotine dependence ==

== ENCOUNTER → 2021-01-01 | Outpatient (CLI) | payer MEDICARE | LOC: M.WC 09:12 | PROVIDERS: ATTEND Emergency Medicine Undersea and Hyperbaric Medicine | DX: E11.622 Type 2 diabetes mellitus with other skin ulcer (principal); L97.812 Non-pressure chronic ulcer of other part of right lower leg with fat layer exposed; L97.312 Non-pressure chronic ulcer of right ankle with fat layer exposed; L97.822 Non-pressure chronic ulcer of other part of left lower leg with fat layer exposed; L03.116 Cellulitis of left lower limb; L94.0 Localized scleroderma [morphea]; I87.2 Venous insufficiency (chronic) (peripheral); Z87.891 Personal history of nicotine dependence ==

== ENCOUNTER → 2021-01-08 | Outpatient (CLI) | payer MEDICARE | LOC: M.WC 09:46 | PROVIDERS: ATTEND Emergency Medicine Undersea and Hyperbaric Medicine | DX: E11.622 Type 2 diabetes mellitus with other skin ulcer (principal); L97.812 Non-pressure chronic ulcer of other part of right lower leg with fat layer exposed; L97.312 Non-pressure chronic ulcer of right ankle with fat layer exposed; L97.822 Non-pressure chronic ulcer of other part of left lower leg with fat layer exposed; L03.116 Cellulitis of left lower limb; L94.0 Localized scleroderma [morphea]; I87.2 Venous insufficiency (chronic) (peripheral); Z87.891 Personal history of nicotine dependence ==

== ENCOUNTER → 2021-01-15 | Outpatient (CLI) | payer MEDICARE | LOC: M.WC 08:51 | PROVIDERS: ATTEND Emergency Medicine Undersea and Hyperbaric Medicine | DX: E11.622 Type 2 diabetes mellitus with other skin ulcer (principal); L97.812 Non-pressure chronic ulcer of other part of right lower leg with fat layer exposed; L97.312 Non-pressure chronic ulcer of right ankle with fat layer exposed; L97.822 Non-pressure chronic ulcer of other part of left lower leg with fat layer exposed; L03.116 Cellulitis of left lower limb; L94.0 Localized scleroderma [morphea]; I87.2 Venous insufficiency (chronic) (peripheral); Z87.891 Personal history of nicotine dependence ==

== ENCOUNTER → 2021-01-22 | Outpatient (CLI) | payer MEDICARE | LOC: M.WC 09:03 | PROVIDERS: ATTEND Emergency Medicine Undersea and Hyperbaric Medicine | DX: E11.622 Type 2 diabetes mellitus with other skin ulcer (principal); L97.812 Non-pressure chronic ulcer of other part of right lower leg with fat layer exposed; L97.312 Non-pressure chronic ulcer of right ankle with fat layer exposed; L97.822 Non-pressure chronic ulcer of other part of left lower leg with fat layer exposed; L94.0 Localized scleroderma [morphea]; L03.116 Cellulitis of left lower limb; I87.2 Venous insufficiency (chronic) (peripheral); Z87.891 Personal history of nicotine dependence ==

== ENCOUNTER → 2021-01-29 | Outpatient (CLI) | payer MEDICARE | LOC: M.WC 09:15 | PROVIDERS: ATTEND Emergency Medicine Undersea and Hyperbaric Medicine | DX: E11.622 Type 2 diabetes mellitus with other skin ulcer (principal); L97.812 Non-pressure chronic ulcer of other part of right lower leg with fat layer exposed; L97.312 Non-pressure chronic ulcer of right ankle with fat layer exposed; L97.822 Non-pressure chronic ulcer of other part of left lower leg with fat layer exposed; L94.0 Localized scleroderma [morphea]; L03.116 Cellulitis of left lower limb; I87.2 Venous insufficiency (chronic) (peripheral); Z87.891 Personal history of nicotine dependence ==

== ENCOUNTER → 2021-02-05 | Outpatient (CLI) | payer MEDICARE | LOC: M.WC 09:26 | PROVIDERS: ATTEND Emergency Medicine Undersea and Hyperbaric Medicine | DX: E11.622 Type 2 diabetes mellitus with other skin ulcer (principal); L97.812 Non-pressure chronic ulcer of other part of right lower leg with fat layer exposed; L97.312 Non-pressure chronic ulcer of right ankle with fat layer exposed; L97.822 Non-pressure chronic ulcer of other part of left lower leg with fat layer exposed; L03.116 Cellulitis of left lower limb; L94.0 Localized scleroderma [morphea]; I87.2 Venous insufficiency (chronic) (peripheral); Z87.891 Personal history of nicotine dependence ==

== ENCOUNTER → 2021-02-12 | Outpatient (CLI) | payer MEDICARE | LOC: M.WC 09:07 | PROVIDERS: ATTEND Emergency Medicine Undersea and Hyperbaric Medicine | DX: E11.622 Type 2 diabetes mellitus with other skin ulcer (principal); L97.812 Non-pressure chronic ulcer of other part of right lower leg with fat layer exposed; L97.312 Non-pressure chronic ulcer of right ankle with fat layer exposed; L97.822 Non-pressure chronic ulcer of other part of left lower leg with fat layer exposed; L03.116 Cellulitis of left lower limb; L94.0 Localized scleroderma [morphea]; I87.2 Venous insufficiency (chronic) (peripheral); Z87.891 Personal history of nicotine dependence ==

== ENCOUNTER → 2021-02-19 | Outpatient (CLI) | payer MEDICARE | LOC: M.WC 09:57 | PROVIDERS: ATTEND Emergency Medicine Undersea and Hyperbaric Medicine | DX: L97.812 Non-pressure chronic ulcer of other part of right lower leg with fat layer exposed (principal); L97.822 Non-pressure chronic ulcer of other part of left lower leg with fat layer exposed; I87.2 Venous insufficiency (chronic) (peripheral); L94.0 Localized scleroderma [morphea]; Z87.891 Personal history of nicotine dependence; Z79.899 Other long term (current) drug therapy ==

== ENCOUNTER → 2021-02-26 | Outpatient (CLI) | payer MEDICARE | LOC: M.WC 08:58 | PROVIDERS: ATTEND Emergency Medicine Undersea and Hyperbaric Medicine | DX: L97.812 Non-pressure chronic ulcer of other part of right lower leg with fat layer exposed (principal); L97.822 Non-pressure chronic ulcer of other part of left lower leg with fat layer exposed; I87.2 Venous insufficiency (chronic) (peripheral); L94.0 Localized scleroderma [morphea]; Z87.891 Personal history of nicotine dependence ==

== ENCOUNTER → 2021-03-05 | Outpatient (CLI) | payer MEDICARE | LOC: M.WC 08:11 | PROVIDERS: ATTEND Emergency Medicine Undersea and Hyperbaric Medicine | DX: L97.812 Non-pressure chronic ulcer of other part of right lower leg with fat layer exposed (principal); L97.822 Non-pressure chronic ulcer of other part of left lower leg with fat layer exposed; I87.2 Venous insufficiency (chronic) (peripheral); L94.0 Localized scleroderma [morphea]; Z87.891 Personal history of nicotine dependence ==

== ENCOUNTER → 2021-03-12 | Outpatient (CLI) | payer MEDICARE | LOC: M.WC 09:13 | PROVIDERS: ATTEND Emergency Medicine Undersea and Hyperbaric Medicine | DX: L97.812 Non-pressure chronic ulcer of other part of right lower leg with fat layer exposed (principal); L97.822 Non-pressure chronic ulcer of other part of left lower leg with fat layer exposed; I87.2 Venous insufficiency (chronic) (peripheral); L94.0 Localized scleroderma [morphea]; Z87.891 Personal history of nicotine dependence ==

== ENCOUNTER → 2021-03-19 | Outpatient (CLI) | payer MEDICARE | LOC: M.WC 09:08 | PROVIDERS: ATTEND Emergency Medicine Undersea and Hyperbaric Medicine | DX: E11.622 Type 2 diabetes mellitus with other skin ulcer (principal); L97.812 Non-pressure chronic ulcer of other part of right lower leg with fat layer exposed; L97.822 Non-pressure chronic ulcer of other part of left lower leg with fat layer exposed; L94.0 Localized scleroderma [morphea]; I87.2 Venous insufficiency (chronic) (peripheral); Z87.891 Personal history of nicotine dependence ==

== ENCOUNTER → 2021-03-26 | Outpatient (CLI) | payer MEDICARE | LOC: M.WC 08:44 | PROVIDERS: ATTEND Emergency Medicine Undersea and Hyperbaric Medicine | DX: E11.622 Type 2 diabetes mellitus with other skin ulcer (principal); L97.812 Non-pressure chronic ulcer of other part of right lower leg with fat layer exposed; L97.822 Non-pressure chronic ulcer of other part of left lower leg with fat layer exposed; I87.2 Venous insufficiency (chronic) (peripheral); L94.0 Localized scleroderma [morphea]; Z87.891 Personal history of nicotine dependence; Z79.899 Other long term (current) drug therapy ==

== ENCOUNTER → 2021-04-02 | Outpatient (CLI) | payer MEDICARE | LOC: M.WC 08:40 | PROVIDERS: ATTEND Emergency Medicine Undersea and Hyperbaric Medicine | DX: L97.822 Non-pressure chronic ulcer of other part of left lower leg with fat layer exposed (principal); L97.812 Non-pressure chronic ulcer of other part of right lower leg with fat layer exposed; I87.2 Venous insufficiency (chronic) (peripheral); L94.0 Localized scleroderma [morphea]; Z87.891 Personal history of nicotine dependence; Z79.899 Other long term (current) drug therapy ==

== ENCOUNTER → 2021-04-09 | Outpatient (CLI) | payer MEDICARE | LOC: M.WC 08:18 | PROVIDERS: ATTEND Emergency Medicine Undersea and Hyperbaric Medicine | DX: E11.622 Type 2 diabetes mellitus with other skin ulcer (principal); L97.822 Non-pressure chronic ulcer of other part of left lower leg with fat layer exposed; L97.812 Non-pressure chronic ulcer of other part of right lower leg with fat layer exposed; I87.2 Venous insufficiency (chronic) (peripheral); L94.0 Localized scleroderma [morphea]; Z87.891 Personal history of nicotine dependence ==

== ENCOUNTER → 2021-04-23 | Outpatient (CLI) | payer MEDICARE | LOC: M.WC 09:13 | PROVIDERS: ATTEND Surgery | DX: E11.622 Type 2 diabetes mellitus with other skin ulcer (principal); L97.822 Non-pressure chronic ulcer of other part of left lower leg with fat layer exposed; L97.812 Non-pressure chronic ulcer of other part of right lower leg with fat layer exposed; L94.0 Localized scleroderma [morphea]; I87.2 Venous insufficiency (chronic) (peripheral); Z87.891 Personal history of nicotine dependence ==

== ENCOUNTER → 2021-04-30 | Outpatient (CLI) | payer MEDICARE | LOC: M.WC 09:24 | PROVIDERS: ATTEND Surgery | DX: E11.622 Type 2 diabetes mellitus with other skin ulcer (principal); L97.822 Non-pressure chronic ulcer of other part of left lower leg with fat layer exposed; L97.812 Non-pressure chronic ulcer of other part of right lower leg with fat layer exposed; L94.0 Localized scleroderma [morphea]; I87.2 Venous insufficiency (chronic) (peripheral); Z87.891 Personal history of nicotine dependence ==

== ENCOUNTER → 2021-05-07 | Outpatient (CLI) | payer MEDICARE | LOC: M.WC 08:33 | PROVIDERS: ATTEND Surgery | DX: E11.622 Type 2 diabetes mellitus with other skin ulcer (principal); L97.812 Non-pressure chronic ulcer of other part of right lower leg with fat layer exposed; L97.822 Non-pressure chronic ulcer of other part of left lower leg with fat layer exposed; L94.0 Localized scleroderma [morphea]; I87.2 Venous insufficiency (chronic) (peripheral); Z87.891 Personal history of nicotine dependence ==

== ENCOUNTER → 2021-05-14 | Outpatient (CLI) | payer MEDICARE | LOC: M.WC 09:07 | PROVIDERS: ATTEND Surgery | DX: E11.622 Type 2 diabetes mellitus with other skin ulcer (principal); L97.812 Non-pressure chronic ulcer of other part of right lower leg with fat layer exposed; L97.822 Non-pressure chronic ulcer of other part of left lower leg with fat layer exposed; L94.0 Localized scleroderma [morphea]; I87.2 Venous insufficiency (chronic) (peripheral); Z87.891 Personal history of nicotine dependence ==

== ENCOUNTER → 2021-05-21 | Outpatient (CLI) | payer MEDICARE | LOC: M.WC 08:42 | PROVIDERS: ATTEND Surgery | DX: E11.622 Type 2 diabetes mellitus with other skin ulcer (principal); L97.812 Non-pressure chronic ulcer of other part of right lower leg with fat layer exposed; L97.822 Non-pressure chronic ulcer of other part of left lower leg with fat layer exposed; L94.0 Localized scleroderma [morphea]; I87.2 Venous insufficiency (chronic) (peripheral); Z87.891 Personal history of nicotine dependence ==

== ENCOUNTER → 2021-05-28 | Outpatient (CLI) | payer MEDICARE | LOC: M.WC 08:57 | PROVIDERS: ATTEND Internal Medicine | DX: E11.622 Type 2 diabetes mellitus with other skin ulcer (principal); L97.812 Non-pressure chronic ulcer of other part of right lower leg with fat layer exposed; S91.001D Unspecified open wound, right ankle, subsequent encounter; L97.821 Non-pressure chronic ulcer of other part of left lower leg limited to breakdown of skin; I87.2 Venous insufficiency (chronic) (peripheral); L94.0 Localized scleroderma [morphea]; Z87.891 Personal history of nicotine dependence; Z79.899 Other long term (current) drug therapy; X58.XXXD Exposure to other specified factors, subsequent encounter ==

== ENCOUNTER → 2021-06-04 | Outpatient (CLI) | payer MEDICARE | LOC: M.WC 10:00 | PROVIDERS: ATTEND Surgery | DX: E11.622 Type 2 diabetes mellitus with other skin ulcer (principal); L97.812 Non-pressure chronic ulcer of other part of right lower leg with fat layer exposed; L97.821 Non-pressure chronic ulcer of other part of left lower leg limited to breakdown of skin; I87.2 Venous insufficiency (chronic) (peripheral); L94.0 Localized scleroderma [morphea]; Z87.891 Personal history of nicotine dependence; Z79.899 Other long term (current) drug therapy ==